=== PATIENT | female | born 1935 | race Caucasian/White ===

== ENCOUNTER 2023-05-08 07:54 | Outpatient (OUT) | payer MEDICARE, SELFPAY ==
--- NOTE | 2023-05-08 08:11 | CT_ITS ---
[address] [address] Patient Name: BENIGNO CHO MRN: [id number] date: 1935 Sex: F Assigned Patient Location: CT Current Patient Location: CT Accession/Order Number: [id number] Exam Date: 05/08/2023 08:05 Report Date: 05/08/2023 09:23 At the request of: CARI BRAUN Procedure: CT abdomen pelvis wo con EXAMINATION: CT abdomen pelvis wo con HISTORY: Gross Hematuria R31.0 COMPARISON: No relevant comparison available. TECHNIQUE: Axial, Coronal, and Sagittal images were created without IV contrast. Dose reduction techniques were achieved by using automated exposure control and/or adjustment of mA and/or kV according to patient size and/or use of iterative reconstruction technique. FINDINGS: LUNG BASES: Dependent opacities, atelectasis favored. Coronary artery stents and calcifications LIVER: Multiple punctate calcifications, sequela of prior granulomatous process BILIARY: Surgical clips from cholecystectomy PANCREAS: Diffuse atrophy SPLEEN: No enlargement or focal lesion. ADRENALS: No mass or enlargement. KIDNEYS: No mass, obstruction, or calcification. BOWEL/MESENTERY: Nonobstructive bowel gas pattern. Moderate colonic diverticulosis. Asymmetric soft tissue along the left rectum axial image 146 possibly stool AORTA/VASCULAR: No aortic aneurysm. Moderate diffuse atherosclerosis RETROPERITONEUM: No mass or adenopathy. LYMPH NODES: No adenopathy. URINARY BLADDER: No visible focal wall thickening, lesion, or calculus. PELVIC ORGANS: Remote hysterectomy ABDOMINAL WALL: No mass or hernia. BONES: No bony lesion or fracture. Right total hip arthroplasty. Moderate degenerative changes. OTHER: Negative. CT/CT abdomen pelvis wo con IMPRESSION: No obstructive uropathy Asymmetric soft tissue attenuation of the left rectum, consider direct visualization Electronically authenticated by: NORIS KELLY Date: 05/08/2023 09:23
== END 2023-05-08 07:55 | disposition home or self-care (01) ==
LOC: CT 07:54
PROVIDERS: PCP Family Medicine; Visit Provider Nurse Practitioner Family
DX: R31.0 Gross hematuria (principal)
CPT/HCPCS: 74176

== ENCOUNTER 2023-08-02 08:29 | Outpatient (RCR) | payer MEDICARE, SELFPAY | END 2023-08-28 13:09 | disposition home or self-care (01) | LOC: PT 08:29 | PROVIDERS: PCP Family Medicine; Visit Provider Family Medicine | DX: R26.81 Unsteadiness on feet (principal) | CPT/HCPCS: 97110; 97112; 97161 ==

== ENCOUNTER 2023-09-03 08:55 | Outpatient (OUT) | payer MEDICARE, SELFPAY ==
--- NOTE | 2023-09-03 09:00 | CA_ITS ---
Patient Name: BENIGNO CHO MR#: [id number] : 1935 Exam Date: 09/03/2023 Ordering Doctor: DR WAYNE ZUNIGA M.D. ECHOCARDIOGRAM REPORT PROCEDURE: CA ECHO DOPPLER COMPLETE INDICATIONS: Coronary artery disease, RI with PTCA, hypertension, diabetes COMPARISON: None. DESCRIPTION: COMPLETE ECHOCARDIOGRAM Real-time transthoracic echocardiography with 2D, M-mode, spectral and color flow Doppler performed. QUALITY: Technical quality was good. 59 , 143#, BSA 1.60 m2 LEFT VENTRICLE: Normal chamber size. Mild concentric left ventricular hypertrophy. LV EF: Global left ventricular systolic function is moderately reduced; visually estimated ejection fraction is 30 to 35%. Calculated left ventricular ejection fraction is 32%. Diffuse hypokinesis. DIASTOLIC: Grade 2, moderate diastolic dysfunction. ATRIAL SEPTUM: Inadequately seen. LEFT ATRIUM: Normal chamber size. RIGHT ATRIUM: Normal chamber size. RIGHT VENTRICLE: Normal chamber size. Normal right ventricular systolic function. TRICUSPID VALVE: Normal mobility and thickness. Trivial regurgitation. Unable to assess right-sided pressures due to lack of measurable tricuspid regurgitation. MITRAL VALVE: Moderately thickened with decreased mobility. Mild mitral annular calcification. Mild mitral regurgitation. AORTIC VALVE: Normal trileaflet appearance. Mildly calcified aortic valve. Mildly diminished mobility. Doppler velocity suggests no significant aortic valve stenosis. DVI 0.4. No aortic regurgitation. AORTIC ROOT: Normal diameter and appearance. PULMONIC VALVE: Normal thickness and mobility. No stenosis. Trivial regurgitation. PERICARDIUM: No evidence of pericardial effusion. IVC: Collapses with inspirations. IVC is normal in size. CONCLUSION: 1. Global left ventricular systolic function is moderately reduced; visually estimated ejection fraction is 30 to 35% 2. Normal right ventricular size and systolic function 3. Mildly increased left ventricular wall thickness 4. Grade 2, moderate diastolic dysfunction 5. Mild mitral regurgitation Adult Echocardiography Procedure Report Left Ventricle LVEDD (3.7 - 5.6 cm): 4.35 cm LVESD (2.2 - 4.0 cm): 3.94 cm LVIVS thickness (0.6 - 1.2 cm): 1.22 cm LVPW thickness (0.5 - 1.0 cm): 1.12 cm e': 0.08 m/s E - e': 9.29 LVOT Max Gradient: 1.21 mm[Hg] LVOT Area (cm2): 0.55 m/s Peak Velocity (LVOT): 0.55 m/s Mean Velocity (LVOT): 0.39 m/s LVOT Diameter 2.06 cm Left Atrium LA Volume Index (2D A2C): 36.13 ml/m2 Left Atrium Systolic Dimension: 3.48 cm Mitral Valve MV E to A Ratio: 1.36 Mitral Valve A-Wave Peak Velocity: 0.55 m/s Mitral Valve E-Wave Peak Velocity: 0.75 m/s Right Ventricle Aorta AO Root Diam: 3.02 cm Ascending Ao Diam: 2.98 cm Aortic Valve AoV Area (Peak Gallo): 1.44 cm2, 1.60 cm2 AoV Area (VTI): 1.40 cm2, 1.56 cm2 Peak Velocity(Antegrade Flow): 1.15 m/s, 1.17 m/s, 1.28 m/s Peak Gradient(Antegrade Flow): 5.25 mm[Hg], 5.51 mm[Hg], 6.52 mm[Hg] Mean Velocity(Antegrade Flow): 0.79 m/s, 0.86 m/s, 0.89 m/s Mean Gradient(Antegrade Flow): 2.90 mm[Hg], 3.38 mm[Hg], 3.60 mm[Hg] Velocity Time Integral: 27.30 cm, 28.47 cm, 30.33 cm Tricuspid Valve Pulmonic Valve Peak Gradient: 3.39 mm[Hg], 2.50 mm[Hg] Right Atrium Right Atrium Systolic Pressure: 21.17 ml, 21.17 ml Dictated by: Bettina Marley M.D. on 09/03/2023 at 14:21 Approved by: Bettina Marley M.D. on 09/03/2023 at 14:32
--- OUTSIDE RECORDS SUMMARY | 2023-09-03 09:09 | XMS_ITS | CCD ---
Author Name Unknown Address [address] [place] [address] Organization [facility] Care Team Providers Care Planning Director Name Role Phone DICK, DR BLACK Admitting Unavailable STEPANIC, DR BLACK Attending Unavailable STEPANIC, DR BLACK Consulting Unavailable OCTAVIA, DR HOWARD Primary Care Unavailable OCTAVIA, DR HOWARD Primary Care Unavailable OCTAVIA, DR HOWARD Admitting Unavailable OCTAVIA, DR HOWARD Attending Unavailable OCTAVIA, DR HOWARD Consulting Unavailable ZIEBER, DR HERMAN Lira Consulting Unavailable OCTAVIA, DR HOWARD Primary Care Unavailable OCTAVIA, DR HOWARD Admitting Unavailable OCTAVIA, DR HOWARD Attending Unavailable OCTAVIA, DR HOWARD Consulting Unavailable ZIEBER, DR HERMAN Lira Consulting Unavailable WAYNE, KARIME Admitting Unavailable WAYNE, KARIME Attending Unavailable WAYNE, KARIME Consulting Unavailable OCTAVIA, DR HOWARD Primary Care Unavailable OCTAVIA, ANITA Hutchins Attending Unavailable DONY MCDONALD Attending UnavailWAYNE Dueñas Attending Unavailable Allergies Allergy Classification Reported Allergen(s) Allergy Type Date of Onset Reaction(s) Facility (1 source) ALPRAZolam Drug Allergy 5 [facility] Repository (1 source) Cephalexin Drug Allergy 5 [facility] Repository (1 source) oxyCODONE Drug Allergy 1 [facility] Repository (1 source) Sulfamethoxazole / Trimethoprim Drug Allergy 5 [facility] Repository (1 source) Sulfonamides (Antibiotic) Drug allergy (disorder) 5 [facility] Repository (1 source) Cephalexin; Translations: [CEPHALEXIN] Drug Allergy 1 [facility] Repository (1 source) Sulfamethoxazole; Translations: [SULFAMETHOXAZOLE] Drug Allergy 1 [facility] Repository (1 source) Sulfamethoxazole / Trimethoprim; Translations: [SULFAMETHOXAZOLE-TR IMETHOPRIM] Drug Allergy 2 [facility] Repository (1 source) Trimethoprim; Translations: [TRIMETHOPRIM] Drug Allergy 1 [facility] Repository Problems Active Problems Problem Classification Problem Date Documented Date Episodic/Chronic Coronary atherosclerosis and other heart disease (4 sources) Atherosclerotic heart disease of [place] coronary artery without angina pectoris; Translations: [Old myocardial infarction] Onset: 07-26-2023 Chronic Coronary atherosclerosis and other heart disease (2 sources) Presence of coronary angioplasty implant and graft; Translations: [Presence of coronary angioplasty implant and graft] Onset: 07-26-2023 Episodic Essential hypertension (2 sources) Essential (primary) hypertension; Translations: [Essential (primary) hypertension] Onset: 06-08-2022 Chronic Menopausal disorders (4 sources) Other primary ovarian failure; Translations: [OTHER PRIMARY OVARIAN FAILURE] Onset: 10-31-2022 Chronic Other bone disease and musculoskeletal deformities (1 source) Other specified disorders of bone density and structure, left thigh; Translations: [OTH D/O BONE DEN STRUCT LT THIGH] Onset: 11-04-2022 Episodic Past or Other Problems Problem Classification Problem Date Documented Da te Episodic/Chronic Cancer of breast (1 source) Personal history of malignant neoplasm of breast; Translations: [PERS HX MALIGNANT NEOPLASM BREAST] Onset: 06-10-2022 Episodic Other screening for suspected conditions (not mental disorders or infectious disease) (4 sources) Encounter for screening mammogram for malignant neoplasm of breast; Translations: [ENC SCR MAMMO MALIG NEOPLASM BREAST] Onset: 06-06-2022 Episodic Results Test Name Value Interpretation Reference Range Facility Office Visiton 07-26-2023 Follow-up visit [id number] Dennis Cho 1935 F Date Provider Department Center 07/26/2023 WAYNE GANT CARD [facility] No family history on file Level of Service:64868 [place] OFFICE/OUTPATIENT ESTABLISHED LOW MDM 20 MIN Normal [facility] XR DEXA BONE DENSITYon 10-31 XR DEXA BONE DENSITY EXAMINATION: XR DEXA BONE DENSITY, 10/31/2022 7:56 AM EDT HISTORY: Primary ovarian failure COMPARISON: None. TECHNIQUE: Dual-energy X-ray absorptiometry (DEXA) bone density study performed for the axial skeleton. FINDINGS: SPINE ANALYSIS: Average bone mineral density is 1.5-3 g/cm2. T-score (standard deviation relative to young adult mean): 2.7 . +3.7% change since prior study. HIP ANALYSIS: Lowest bone mineral density is within the left femoral neck, 0.771 g/cm2. T-score (standard deviation relative to young adult mean): -1.9 . -7.0% change since prior study. IMPRESSION: World Stuart Organization Classification: Osteopenia - Moderate Fracture Risk Electronically authenticated by: HERMAN ANTHONY Date: 2022-10-31 09:16 Normal [facility] MAMM SCREEN 3D CATHLEEN CADon 06-06-2022 MG MAMM SCREEN 3D CATHLEEN CAD Patient: BENIGNO CHO Exam Date: 06/06/2022 : 1935 Gender:F Ordering : DR ANITA DUDLEY M.D. Admission #: [id number] Family : Order #: [id number] CLICK HERE TO VIEW EXAM RADIOLOGY REPORT PROCEDURE: MAMMOGRAM SCREENING 3D BILATERAL CAD COMPARISON: MG MAMM SCREEN 3D CATHLEEN CAD, 02/07/2021. MG MAMM SCREEN CATHLEEN W CAD, 02/04/2020. INDICATIONS: Screening mammography Calculator Name NCI Breast Cancer Risk Assessment Tool 5 Year Breast Cancer Risk Not Applicable. Lifetime Breast Cancer Risk Not Applicable. Personal Breast Cancer Yes, 1998 Lumpectomy Personal Ovarian Cancer No Treatments Lumpectomy, Radiation, Chemotherapy, Tamoxifen Family Cancers None LOCATION: [facility] BREAST COMPOSITION: Heterogeneously dense,which may obscure small masses. FINDINGS: DIAGNOSTIC CATEGORY 2--BENIGN FINDING: RIGHT BREAST: No significant suspicious finding. Scattered benign-appearing calcifications are present. No significant change has occurred. LEFT BREAST: No significant suspicious finding. Scattered benign-appearing calcifications are present. Scattered benign-appearing nodules are present. No significant change has occurred. RECOMMENDATIONS: ROUTINE MAMMOGRAM AND CLINICAL EVALUATION IN 12 MONTHS. PLEASE NOTE: A NORMAL MAMMOGRAM DOES NOT EXCLUDE THE POSSIBILITY OF BREAST CANCER. A CLINICALLY SUSPICIOUS PALPABLE LUMP SHOULD BE BIOPSIED. Dictated by: Herman Anthony M.D. on 06/07/2022 at 14:54 Approved by: Herman Anthony M.D. on 06/07/2022 at 15:08 Normal [facility] PROF CHEM 8 (BAS METB)on Anion gap [Moles/Vol] 12.9 mmol/L Normal [facility] Comment on above: Performed By: #### B MP #### [facility] [address] [address] [address] Justin Sidhu Calcium [Mass/Vol] 8.8 mg/dL Normal 8.5-10.1 [facility] Comment on above: Performed By: #### B MP #### [facility] [address] [address] [address] Justin Sidhu Chloride [Moles/Vol] 99 mmol/L Normal 98-107 [facility] Comment on above: Performed By: #### B MP #### [facility] [address] [address] [address] Justin Sidhu CO2 [Moles/Vol] 25.9 mmol/L Normal 21.0-32.0 [facility] Comment on above: Performed By: #### B MP #### [facility] [address] [address] [address] Justin Sidhu Creatinine [Mass/Vol] 0.75 mg/dL Normal 0.55-1.02 [facility] Comment on above: Performed By: #### B MP #### [facility] [address] [place] [address] Dr. Justin Sidhu EGFR-AF PERUVIAN >60 Normal >=60 [facility] Comment on above: Performed By: #### B MP #### [facility] [address] [address] [address] Justin Sidhu EGFR-NON AF PERUVIAN >60 Normal >=60 [facility] Comment on above: Performed By: #### B MP #### [facility] [address] [address] [address] Justin Sidhu Glucose [Mass/Vol] 123 mg/dL Critically high 74-106 [facility] Comment on above: Performed By: #### B MP #### [facility] [address] [address] [address] Justin Sidhu Potassium [Moles/Vol] 4.8 mmol/L Normal 3.5-5.1 [facility] Comment on above: Result Comment: SPEC IMEN SLIGHTLY HEMOLIZED Performed By: #### B MP #### [facility] [address] [place] [address] Dr. Justin Sidhu Sodium [Moles/Vol] 133 mmol/L Critically low 136-145 Th e [facility] Comment on above: Performed By: #### B MP #### [facility] [address] [address] [address] Justin Sidhu Urea nitrogen [Mass/Vol] 19.0 mg/dL Critically high 7.0-18.0 [facility] Comment on above: Performed By: #### B MP #### [facility] [address] [place] [address] Dr. Justin Sidhu Urea nitrogen/Creatinin e [Mass ratio] 25.3 mg/mg Normal [facility] Comment on above: Performed By: #### B MP #### [facility] [address] [place] [address] Dr. Justin Sidhu Complete Blood Count with Au to Diffon 09-23-2021 Basophils (Bld) [#/Vol] 0.04 10*3/uL Normal 0.00-0.20 [facility] Specialist Comment on above: Performed By: #### C MP, CBCAD, LIPD #### [facility] [address] [place], [place] [id number] Basophils/100 WBC (Bld) 0.2 % Normal [facility] Interventional Radiology Technologist Comment on above: Performed By: #### C MP, CBCAD, LIPD #### [facility] [address] [place] [id number] Eosinophils (Bld) [#/Vol] 0.10 10*3/uL Normal 0.02-0.50 [facility] Interventional Radiology Technologist Comment on above: Performed By: #### C MP, CBCAD, LIPD #### [facility] [address] [place] [id number] Eosinophils/100 WBC (Bld) 0.6 % Normal [facility] Specialist Comment on above: Performed By: #### C MP, CBCAD, LIPD #### [facility] [address] [place], [place] [id number] Erythrocyte distribution width (RBC) [Ratio] 13.4 % Normal 11.0-15.0 [facility] Interventional Radiology Technologist Comment on above: Performed By: #### C MP, CBCAD, LIPD #### [facility] [address] [place], [place] [id number] Hematocrit (Bld) [Volume fraction] 37.9 % Normal 35.0-47.0 [facility] Interventional Radiology Technologist Comment on above: Performed By: #### C MP, CBCAD, LIPD #### [facility] [address] [place], [place] [id number] Hemoglobin (Bld) [Mass/Vol] 12.8 g/dL Normal 11.6-15.5 [facility] Interventional Radiology Technologist Comment on above: Performed By: #### C MP, CBCAD, LIPD #### [facility] [address] [place], [place] [id number] Lymphocytes (Bld) [#/Vol] 1.6 10*3/uL Normal 0.9-3.9 [facility] Interventional Radiology Technologist Comment on above: Performed By: #### C MP, CBCAD, LIPD #### [facility] [address] [place], [place] [id number] Lymphocytes/100 WBC (Bld) 9.6 % Normal [facility] Specialist Comment on above: Performed By: #### C MP, CBCAD, LIPD #### [facility] [address] [place], [place] [id number] MCH (RBC) [Entitic mass] 33.2 pg High 27.0-33.0 [facility] Interventional Radiology Technologist Comment on above: Performed By: #### C MP, CBCAD, LIPD #### [facility] [address] [place], [place] [id number] MCHC (RBC) [Mass/Vol] 33.8 g/dL Normal 32.0-36.0 [facility] Interventional Radiology Technologist Comment on above: Performed By: #### C MP, CBCAD, LIPD #### [facility] [address] [place], [place] [id number] MCV (RBC) [Entitic vol] 98 fL Normal 80-100 [place] Interventional Radiology Technologist Comment on above: Performed By: #### C MP, CBCAD, LIPD #### [facility] [address] [place], [place] [id number] Monocytes (Bld) [#/Vol] 1.0 10*3/uL High 0.2-0.9 [facility] Specialist Comment on above: Performed By: #### C MP, CBCAD, LIPD #### [facility] [address] [place], [place] [id number] Monocytes/100 WBC (Bld) 5.9 % Normal [facility] Specialist Comment on above: Performed By: #### C MP, CBCAD, LIPD #### [facility] [address] [place], [place] [id number] Neutrophils (Bld) [#/Vol] 13.5 10*3/uL High 1.5-7.8 [facility] Specialist Comment on above: Performed By: #### C MP, CBCAD, LIPD #### [facility] [address] [place], [place] [id number] Neutrophils/100 WBC (Bld) 83.0 % Normal [facility] Specialist Comment on above: Performed By: #### C MP, CBCAD, LIPD #### [facility] [address] [place], [place] [id number] Platelet mean volume (Bld) [Entitic vol] 10.60 fL Normal 7.50-12.50 [facility] Specialist Comment on above: Performed By: #### C MP, CBCAD, LIPD #### [facility] [address] [place], [place] [id number] Platelets (Bld) [#/Vol] 271 10*3/uL Normal 140-400 [facility] Interventional Radiology Technologist Comment on above: Performed By: #### C MP, CBCAD, LIPD #### [facility] [address] [place], [place] [id number] RBC (Bld) [#/Vol] 3.85 10*6/uL Low 3.90-5.20 [facility] Specialist Comment on above: Performed By: #### C MP, CBCAD, LIPD #### [facility] [address] [place], [place] [id number] RDW-SD 48.1 fL Normal 37.0-50.0 [facility] Specialist Comment on above: Performed By: #### C MP, CBCAD, LIPD #### [facility] [address] [place], [place] [id number] WBC (Bld) [#/Vol] 16.3 10*3/uL High 3.8-11.0 [facility] Comment on above: Performed By: #### C MP, CBCAD, LIPD #### [facility] [address] [place], [place] [id number] Comprehensive Metabolic Pane lizty 09-23-2021 Albumin [Mass/Vol] 4.0 g/dL Normal 3.6-5.1 [facility] Comment on above: Performed By: #### C MP, CBCAD, LIPD #### [facility] [address] [place], [place] [id number] Albumin/Globulin [Mass ratio] 2.4 {ratio} Normal 1.0-2.5 [facility] Specialist Comment on above: Performed By: #### C MP, CBCAD, LIPD #### [facility] [address] [place], [place] [id number] ALP [Catalytic activity/Vol] 67 U/L Normal 35-119 [facility] Specialist Comment on above: Performed By: #### C MP, CBCAD, LIPD #### [facility] [address] [place], [place] [id number] ALT [Catalytic activity/Vol] 12 U/L Normal 6-33 [facility] Specialist Comment on above: Result Comment: 06/08 Female reference range changed. Performed By: #### C MP, CBCAD, LIPD #### [facility] [address] [place], [place] [id number] Anion gap [Moles/Vol] 18 mmol/L Normal 12-20 [facility] Specialist Comment on above: Result Comment: Effe ctive 07/14/2019 reference range changed. Performed By: #### C MP, CBCAD, LIPD #### [facility] [address] [place], [place] [id number] AST [Catalytic activity/Vol] 17 U/L Normal 9-34 [place] Interventional Radiology Technologist Comment on above: Performed By: #### C MP, CBCAD, LIPD #### [facility] [address] [place], [place] [id number] Bilirubin [Mass/Vol] 0.52 mg/dL Normal 0.30-1.20 [facility] Comment on above: Performed By: #### C MP, CBCAD, LIPD #### [facility] [address] [place], [place] [id number] BUN/CREA 30 Ratio High 6-22 [facility] Comment on above: Performed By: #### C MP, CBCAD, LIPD #### [facility] [address] [place], [place] [id number] Calcium [Mass/Vol] 8.9 mg/dL Normal 8.6-10.2 [facility] Comment on above: Performed By: #### C MP, CBCAD, LIPD #### [facility] [address] [place], [place] [id number] Chloride [Moles/Vol] 96 mmol/L Low 98-107 [facility] Comment on above: Performed By: #### C MP, CBCAD, LIPD #### [facility] [address] [place], [place] [id number] CO2 [Moles/Vol] 29 mmol/L Normal 20-31 [facility] Comment on above: Performed By: #### C MP, CBCAD, LIPD #### [facility] [address] [place] [id number] Creatinine [Mass/Vol] 0.8 mg/dL Normal 0.6-1.4 [facility] Comment on above: Performed By: #### C MP, CBCAD, LIPD #### [facility] [address] [place], [place] [id number] eGFRAA 87 mL/min/1.73m2 Normal >60 [facility] Specialist Comment on above: Performed By: #### C MP, CBCAD, LIPD #### [facility] [address] [place], [place] [id number] eGFRNAA 72 mL/min/1.73m2 Normal >60 [facility] Specialist Comment on above: Performed By: #### C MP, CBCAD, LIPD #### [facility] [address] [place], [place] [id number] Globulin (S) [Mass/Vol] 1.7 g/dL Low 1.9-3.7 [facility] Interventional Radiology Technologist Comment on above: Performed By: #### C RAHEL NATH, LIPD #### [facility] [address] [place], [place] [id number] Glucose [Mass/Vol] 186 mg/dL High 65-99 [facility] Interventional Radiology Technologist Comment on above: Result Comment: For FASTING Glucose --- ADA reference ranges: Normal 65-99 mg/dl Prediabetes 100-125 Diabetes >/= 126 Performed By: #### C RAHEL NATH, LIPD #### [facility] [address] [place], [place] [id number] Potassium [Moles/Vol] 3.8 mmol/L Normal 3.5-5.5 [facility] Interventional Radiology Technologist Comment on above: Performed By: #### C RAHEL NATH, LIPD #### [facility] [address] [place], [place] [id number] Protein [Mass/Vol] 5.7 g/dL Low 6.1-8.1 [facility] Interventional Radiology Technologist Comment on above: Performed By: #### C RAHEL NATH, LIPD #### [facility] [address] [place], [place] [id number] Sodium [Moles/Vol] 138 mmol/L Normal 135-146 [facility] Interventional Radiology Technologist Comment on above: Performed By: #### C RAHEL NATH, LIPD #### [facility] [address] [place], [place] [id number] Urea nitrogen [Mass/Vol] 23 mg/dL Normal 7-25 [facility] Interventional Radiology Technologist Comment on above: Performed By: #### C RAHEL NATH, LIPD #### [facility] [address] [place], [place] [id number] Lipid Panelon 09-23-2021 Cholesterol [Mass/Vol] 155 mg/dL Normal 125-200 [facility] Interventional Radiology Technologist Comment on above: Result Comment: Low risk < 200mg/dL Borderline risk 201-239 mg/dl High risk > or equal to 240 Performed By: #### C MP, CBCAD, LIPD #### [facility] [address] [place], [place] [id number] Cholesterol in HDL [Mass/Vol] 44 mg/dL Normal >40 [facility] Interventional Radiology Technologist Comment on above: Result Comment: High Cardiovascular Risk HDL <40 mg/dL Low Cardiovascular Risk HDL > or equal to 60 mg/dl Performed By: #### C PORTILLO, CBCAD, LIPD #### [facility] [address] [place], [place] [id number] Cholesterol in LDL [Mass/Vol] 71 mg/dL Normal [facility] Specialist Comment on above: Result Comment: LDL ATP III CLASSIFICATION LDL less than 100 mg/dl Optimal LDL 100-129 mg/dl Near or above optimal LDL 130-159 Borderline high LDL 160-189 High LDL greater than 189 mg/dl Very High Performed By: #### C PORTILLO, CBCAD, LIPD #### [facility] [address] [place], [place] [id number] Cholesterol in VLDL [Mass/Vol] 40 mg/dL Normal [facility] Interventional Radiology Technologist Comment on above: Performed By: #### C PORTILLO, CBCAD, LIPD #### [facility] [address] [place], [place] [id number] Cholesterol.total/ Cholesterol in HDL [Mass ratio] 4 {ratio} Normal [facility] Specialist Comment on above: Performed By: #### C PORTILLO, CBCAD, LIPD #### [facility] [address] [place], [place] [id number] Triglyceride [Mass/Vol] 202 mg/dL High 30-150 [facility] Interventional Radiology Technologist Comment on above: Result Comment: TRIG ATPIII CLASSIFICATIONS TRIG less than 150 mg/dl Normal TRIG 150-199 mg/dl Borderline High TRIG 200-500 mg/dl High TRIG greather than 500 mg/dl Very High Performed By: #### C PORTILLO, CBCAD, LIPD #### [facility] [address] [place], [place] [id number] Uric Acidon 09-23-2021 URIC 5.5 mg/dL Normal 2.5-7.0 [facility] Specialist Comment on above: Result Comment: Refe rence range change 05/25/2017. Prior reference range F 2.4-5.7mg/dL. M 3.4-7.0 mg/dL. Performed By: #### U NICOLETTE #### [facility] [address] [facility] [place] [id number] [facility] -------- BENIGNO CHO ([id number]) 1935 F Date Time Provider Department 02/16/21 Alejo MAHAJAN During your visit today, we recorded the following information about you: Nevin Kaye RN 02/16/2021 12:44 PM Signed [facility] Screening mammo and result only call in one year PSS- please schedule as above. GLO- please sign new Seth order. The prior order will be denied because of the breast CA diagnosis. They will not do screening seth if we attach that. Thanks BETY Thomas 02/17/2021 9:09 AM Signed Patient has been scheduled as instructed. Carlos Yates Allergies As of Date: 02/16/2021 Noted Allergy Reaction BACTRIM (SULFAMETHOXAZOLE) 02/13/2011 4 - Hives KEFLEX (CEPHALEXIN) 02/13/2011 4 - Hives Date Reviewed: 03/21/2017 [facility] BETY Turner - Fully Assessed Reason for Visit: Future Appointment [256] Primary Visit Diagnosis:Encounter for screening mammogram for malignant neoplasm of breast [Z12.31] Order(s):SETH SCREENING [[id number]] Order #: [id number] FUTURE Prescriptions as of 02/17/2021 - oxybutynin (DITROPAN) 5 mg tablet - JANUVIA 100 mg tablet - ALPRAZolam SR (XANAX SR) 0.5 mg 24 hr tablet Take 0.25 mg by mouth daily at bedtime. - GLUCOSAMINE/CHONDR CASEY A SOD (OSTEO BI-FLEX ORAL) Take by mouth. - atenolol 25 mg ORAL tablet Take 1 tablet by mouth once daily. - hydrochlorothiazide 25 mg ORAL tablet Take 0.5 tablets by mouth once daily. - benazepril 20 mg ORAL tablet Take 1 tablet by mouth once daily. - metFORMIN 1,000 mg ORAL tablet Take 1 tablet by mouth twice daily. - nitroglycerin sublingual 0.4 mg SUBLINGUAL SL tablet Dissolve 1 tablet under the tongue as needed. Dissolve on tongue for chest pain. If no pain relief call 911. - Canmer-3 Fatty Acids-Vitamin E (FISH OIL) 1,000 mg ORAL Cap Take 1 capsule by mouth twice daily. - aspirin, enteric coated (ECOTRIN LOW STRENGTH) 81 mg ORAL EC tablet Take 1 tablet by mouth once daily. - Coenzyme Q10 (CO Q-10) 100 mg ORAL Cap Take 1 capsule by mouth twice daily. Problem List As Of Date 02/16/2021 Noted Resolved ASA CLASS III [1003] 05/01/2011 Female stress incontinence [N39.3] 05/16/2011 Uterovaginal prolapse [N81.4] 05/16/2011 History of breast cancer [Z85.3] 03/21/2017 Encounter Status:Closed by NEVIN KAYE on 02/17/21 [facility] Encounters Encounter Date Encounter Type Care Provider Facility Start: 07-26-2023 End: 07-26-2023 ambulatory [facility] Start: 07-16-2023 End: 07-16-2023 ambulatory ANITA DUDLEY Not Available Start: 06-18-2023 End: 06-18-2023 ambulatory DONY MCDONALD Not Available Start: 10-31-2022 End: 11-01-[address] ANITA DUDLEY Facility:[facility] Start: 06-06-2022 End: 06-07-[address] ANITA DUDLEY Facility:[facility] Start: 04-21-2022 Encounter for preprocedural cardiovascular examination KARIME BLACK [facility] Start: 04-20-2022 End: 04-21-2022 ambulatory KARIME BLACK Facility:[facility] Start: 04-20-2022 End: 04-21-2022 Encounter for preprocedural cardiovascular examination KARIME BLACK Facility:[facility] Start: 04-20-2022 Encounter for other preprocedural examination DR WAYNE JENNINGS [facility] Start: 04-18-2022 End: 04-19-[address] WAYNE JENNINGS Facility:[facility] Start: 04-18-2022 End: 04-19-2022 Encounter for other preprocedural examination DR WAYNE JENNINGS Facility:[facility] Payers Date Payer Category Payer Medicare [id number] 1960 Medicare [id number] 1935 Unknown [id number] 2.16.84 [id number] 1934 Unknown [id number] 2.16.84 [id number] 1934 Unknown [id number] 2.16.84 [id number] 1934 Unknown [id number] 2.16.84 [id number] 1934 Unknown [id number] 1934 Unknown [id number] Progress note 07-26-2023 Note Date & Type Note Facility 07-26-2023 Note [facility] Subjective Benigno Cho is a 87 y.o. year old female patient being seen for 1 year follow up CAD, PVD, and hypertension. Routine labs were done at PCP's office in September 2022. Denies chest pain, SOB, palpitations, and lightheadedness. Patient Active Problem List Diagnosis Chest discomfort Coronary arteriosclerosis Decreased estrogen level Diabetic renal disease (CMS/HCC) Female stress incontinence Gout, unspecified H/O Malignant melanoma Hypertension due to endocrine disorder Hypertensive disorder Hypertriglyceridemia Lipoprotein deficiency disorder Malignant neoplasm of female breast (CMS/HCC) Localized, primary osteoarthritis of hand Onychomycosis due to dermatophyte Osteoarthrosis Osteopenia of left hip PVD (peripheral vascular disease) (CMS/HCC) Abnormal CT of the abdomen Abnormality of rectum Acquired hallux valgus Acquired hammer toe of left foot Adjustment disorder with anxiety Allergic rhinitis Anxiety Arrest of bone development or growth 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 Carpal tunnel syndrome of left wrist Esophageal reflux Gouty arthritis 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 Social History Tobacco Use Smoking status: Never Smokeless tobacco: Never Substance Use Topics Alcohol use: Yes Comment: occasional HPI Benigno Cho is seen in follow up. She is an 87 yo lady with history of CAD as follows: She had acute inferior CA in 2004 treated by PCI to the RCA. She then had additional stenting of the RCA in July 2005. Subsequently had Cath 2005 with additional PCI ALO to RCA and LAD. She also had a cath in 2009 at [facility] and underwent additional stenting. This was complicated by retroperitoneal bleeding but she did well after that. She has history of hypertension and hyperlipidemia on treatment. She has diabetes. Previously Simvastatin was stopped due to good cholesterol levels, I had resumed it at a prior vist. She has been well with no chest pain at rest or on exertion. She has no dyspnea on exertion. She has no claudication. She has no dizziness. She has no complaints. Review of Systems Musculoskeletal: Positive for arthritis, back pain and joint pain. All other systems reviewed and are negative. Objective Visit Vitals BP 124/62 (BP Location: Right arm, Patient Position: Sitting) Pulse 59 Ht 1.499 m (4' 11 ) Wt 64.4 kg (142 lb) SpO2 99% BMI 28.68 kg/m??? Smoking Status Never BSA 1.64 m??? Physical Exam Constitutional: Appearance: She is well-developed. She is not ill-appearing. HENT: Head: Normocephalic and atraumatic. Nose: Nose normal. Eyes: General: No scleral icterus. Pupils: Pupils are equal, round, and reactive to light. Neck: Thyroid: No thyromegaly. Vascular: No JVD. Cardiovascular: Rate and Rhythm: Normal rate and regular rhythm. Pulses: Radial pulses are 2+ on the right side and 2+ on the left side. Heart sounds: Normal heart sounds. No murmur heard. No friction rub. No gallop. Pulmonary: Effort: Pulmonary effort is normal. No respiratory distress. Breath sounds: Normal breath sounds. No wheezing or rales. Chest: Chest wall: No tenderness. Abdominal: General: Bowel sounds are normal. There is no distension. Palpations: Abdomen is soft. Tenderness: There is no abdominal tenderness. Musculoskeletal: General: No swelling. Cervical back: Neck supple. Skin: General: Skin is warm and dry. Neurological: General: No focal deficit present. Mental Status: She is alert and oriented to person, place, and time. Psychiatric: Mood and Affect: Mood normal. Behavior: Behavior is cooperative. Judgment: Judgment normal. Allergies Allergies Allergen Reactions Cephalexin Hives and Unknown Sulfamethoxazole Hives and Unknown Sulfamethoxazole-Trimethoprim Trimethoprim Unknown Medications Current Outpatient Medications: aspirin 81 mg EC tablet, Take 81 mg by mouth in the morning and at bedtime., Disp: , Rfl: atenolol (Tenormin) 25 mg tablet, Take 25 mg by mouth in the morning., Disp: , Rfl: benazepril (Lotensin) 20 mg tablet, Take 20 mg by mouth in the morning., Disp: , Rfl: calcium citrate (Calcitrate) 200 mg (950 mg) tablet, Take 1,000 mg by mouth twice a day., Disp: , Rfl: hydroCHLOROthiazide (HYDRODiuril) 25 mg tablet, Take 25 mg by mouth in the morning., Disp: , Rfl: Januvia 100 mg tablet, Take 100 mg by mouth in the morning., Disp: , Rfl: magnesium oxide (Mag-Ox) 400 mg (241.3 mg magnesium) tablet, in the morning., Disp: , Rfl: nitroglycerin (Nitrostat) 0.4 (more content not included)... [facility] Progress note 02-16-2021 Note Date & Type Note Facility 02-16-2021 Note HNO ID: [id number] Author: Alejo Mahajan MD Service: ? Author Type: Physician Type: Progress Notes Filed: 02/16/2021 11:44 AM Note Text: AMBULATORY TELEPHONE VISIT Benigno Cho has consented to this telephone encounter. Persons Present: patient Chief Complaint/Reason: left-sided breast cancer and prior treatment including left breast radiation. HPI: Doing well denies problems. She did not want this to count as a visit due to concern of cost. Data Reviewed: Most recent imaging Bilateral screening mammography 02/07/2021: BI-RADS 2 benign findings. Heterogeneously dense. No suspicious areas. Assessment: Left-sided breast cancer and prior treatment including left breast radiation. Doing well. Mammogram unremarkable. Recommend continued yearly mammography as long as she is otherwise doing well. Total Time Spent: 4 minutes Alejo Mahajan MD [facility] Summary Purpose Family History No Family History Records FoundNo Family History Records FoundNo Family History Records FoundNo Family History Records FoundNo Family History Records Found Advance Directives No Advanced Directives Records FoundNo Advanced Directives Records FoundNo Advanced Directives Records FoundNo Advanced Directives Records FoundNo Advanced Directives Records Found Additional Source Comments INFORMATION SOURCE (unrecogn ized section and content) DATE CREATED AUTHOR 08/10/2021 [facility] DATE CREATED AUTHOR AUTHOR'S ORGANIZ ATION 09/24/2021 [facility] DATE CREATED AUTHOR AUTHOR'S ORGANIZ ATION 11/04/2022 [facility] pital DATE CREATED AUTHOR AUTHOR'S ORGANIZ ATION 07/16/2023 [facility] EPIC DATE CREATED AUTHOR AUTHOR'S ORGANIZ ATION 07/27/2023 [facility] FOR RECORDS PERTAINING TO PATIENTS WHO ARE OR HAVE BEEN ENROLLED IN A CHEMICAL DEPENDENCY/SUBSTANCEABUSE PROGRAM, SOME INFORMATION MAY BE OMITTED. This clinical summary was aggregated from multiple sources. Caution should be exercised in using it in the provision of clinical care. This summary normalizes information from multiple sources, and as a consequence, information in this document may materially change the coding, format and clinical context of patient data. In addition, data may be omitted in some cases. CLINICAL DECISIONS SHOULD BE BASED ON THE PRIMARY CLINICAL RECORDS. [facility] [employer] [facility]. provides no warranty or guarantee of the accuracy or completeness of information in this document.
== END 2023-09-03 08:56 | disposition home or self-care (01) ==
LOC: CARD 08:56
PROVIDERS: PCP Family Medicine; Visit Provider Internal Medicine Interventional Cardiology
DX: I25.10 Atherosclerotic heart disease of native coronary artery without angina pectoris (principal); Z95.5 Presence of coronary angioplasty implant and graft; I25.2 Old myocardial infarction
CPT/HCPCS: 93306; 93356

== ENCOUNTER 2023-10-03 12:10 | Emergency (ER) | payer MEDICARE, SELFPAY ==
[2023-10-03] VITALS (16 sets, daily range): BP systolic 127–143; BP diastolic 62–77; PULSE 59–71; RESP 12–27; TEMP 36.7; O2SAT 93–100; BMI 27.0
--- OUTSIDE RECORDS SUMMARY | 2023-10-03 12:25 | XMS_ITS | CCD ---
Author Organization [facility] Care Team Providers Care Occ Therapist Name Role Phone DICK, DR BLACK Admitting Unavailable STEPANIC, DR BLACK Attending Unavailable STEPANIC, DR BLACK Consulting Unavailable OCTAVIA, DR HOWARD Primary Care Unavailable OCTAVIA, DR HOWADR Primary Care Unavailable OCTAVIA, DR HOWARD Admitting [...] Care Unavailable OCTAVIA, ANITA Hutchins Attending Unavailable BOHACHDONY Attending Unavailabl e BOHDONY VALADEZ Attending Unavailabl e OCTAVIA, ANITA Hutchins Attending Unavailable MOWAYNE RUGGIERO Attending Unavailable WAYNE ZUNIGA Attending Unavailable Allergies Allergy Classification Reported Allergen(s) Allergy Type Date of Onset Reaction(s) Facility (1 source) ALPRAZolam Drug Allergy [address] [facility] Repository (1 source) Cephalexin Drug Allergy [address] [facility] Repository (1 source) oxyCODONE Drug Allergy [address] [facility] Repository (1 source) Sulfamethoxazole / Trimethoprim Drug Allergy [address] [facility] Repository (1 source) Sulfonamides (Antibiotic) Drug allergy (disorder) [address] [facility] Repository (1 source) Cephalexin; Translations: [CEPHALEXIN] Drug Allergy 1 [facility] Repository (1 source) Sulfamethoxazole; Translations: [SULFAMETHOXAZOLE] Drug Allergy 1 [facility] Repository (1 source) Sulfamethoxazole / Trimethoprim; Translations: [SULFAMETHOXAZOLE-TR IMETHOPRIM] Drug Allergy 2 [facility] Repository (1 source) Trimethoprim; Translations: [TRIMETHOPRIM] Drug Allergy 1 [facility] Repository Problems Active Problems Problem Classification Problem Date Documented Date Episodic/Chronic Congestive heart failure; nonhypertensive (2 sources) Acute systolic (congestive) heart failure; Translations: [Acute systolic (congestive) heart failure] Onset: 09-24-2023 Chronic Coronary atherosclerosis and other heart disease (4 sources) 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 She needs to be seen in the office to adjust medications due to heart failure and to discuss cardiac catheterization. Spoke with patient and scheduled her to see Dr. Zuniga on 09/23. Normal [facility] Office Visiton 07-26-2023 Follow-up visit [id number] Sapphire Chosamantha Brannon 1935 F Date Provider Department Center 07/26/2023 367-WAYNE ZUNIGA [facility] No family history on file Level of Service:34043 MT OFFICE/OUTPATIENT ESTABLISHED LOW MDM 20 MIN Normal [facility] XR DEXA BONE DENSITYon 10-31 XR DEXA [...] authenticated by: HERMAN ANTHONY Date: 2022-10-31 09:[address] [facility] MG MAMM SCREEN 3D CATHLEEN CADon 06-06-2022 MG MAMM SCREEN 3D CATHLEEN CAD Patient: BENIGNO CHOColby Exam Date: 06/06/2022 : 1935 Gender:F Ordering : DR ANITA DUDLEY M.D. Admission #: [id number] Family : Order #: [id number] CLICK HERE TO VIEW EXAM RADIOLOGY REPORT [...] Radiation, Chemotherapy, Tamoxifen Family Cancers None LOCATION: [facility] BREAST COMPOSITION: Heterogeneously dense,which may obscure small [...] Anthony M.D. on 06/07/2022 at 15:08 Normal [facility] PROF CHEM 8 (BAS METB)on Anion gap [Moles/Vol] 12.9 mmol/L Normal [facility] Comment on above: Performed By: #### B MP #### [facility] [address] [address] [address] Justin Sidhu Calcium [Mass/Vol] 8.8 mg/dL Normal 8.5-10.1 [facility] Comment on above: Performed By: #### B MP #### [facility] [address] [address] [address] Justin Sidhu Chloride [Moles/Vol] 99 mmol/L Normal 98-107 [facility] Comment on above: Performed By: #### B MP #### [facility] [address] [address] [address] Justin Sidhu CO2 [Moles/Vol] 25.9 mmol/L Normal 21.0-32.0 [facility] Comment on above: Performed By: #### B MP #### [facility] [address] [address] [address] Justin Sidhu Creatinine [Mass/Vol] 0.75 mg/dL Normal 0.55-1.02 [facility] Comment on above: Performed By: #### B MP #### [facility] [address] [address] [address] Justin Sidhu EGFR-AF GUAMANIAN >60 Normal >=60 [facility] Comment on above: Performed By: #### B MP #### [facility] [address] [address] [address] Justin Sidhu EGFR-NON AF GUAMANIAN >60 Normal >=60 [facility] Comment on above: Performed By: #### B MP #### [facility] [address] [address] [address] Justin Sidhu Glucose [Mass/Vol] 123 mg/dL Critically high 74-106 T [facility] Comment on above: Performed By: #### B MP #### [facility] [address] [place] [address] Dr. Justin Sidhu Potassium [Moles/Vol] 4.8 mmol/L Normal 3.5-5.1 [facility] Comment on above: Result Comment: SPEC IMEN SLIGHTLY HEMOLIZED Performed By: #### B MP #### [facility] [address] [place] [address] Dr. Justin Sidhu Sodium [Moles/Vol] 133 mmol/L Critically low 136-145 Th [facility] Comment on above: Performed By: #### B MP #### [facility] [address] [address] [address] Justin Sidhu Urea nitrogen [Mass/Vol] 19.0 mg/dL Critically high 7.0-18.0 [facility] Comment on above: Performed By: #### B MP #### [facility] [address] [address] [address] Justin Sidhu Urea nitrogen/Creatinin e [Mass ratio] 25.3 mg/mg Normal [facility] Comment on above: Performed By: #### B MP #### [facility] [address] [address] [address] Justin Sidhu Complete Blood Count with Au to Diffon 09-23-2021 Basophils (Bld) [#/Vol] 0.04 10*3/uL Normal 0.00-0.20 [facility] Comment on above: Performed By: #### C MP, CBCAD, LIPD #### [facility] [address] [place], [place] [id number] Basophils/100 WBC (Bld) 0.2 % Normal [facility] Comment on above: Performed By: #### C MP, CBCAD, LIPD #### [facility] [address] [place], [place] [id number] Eosinophils (Bld) [#/Vol] 0.10 10*3/uL Normal 0.02-0.50 [facility] Comment on above: Performed By: #### C MP, CBCAD, LIPD #### [facility] [address] [place], [place] [id number] Eosinophils/100 WBC (Bld) 0.6 % Normal [facility] Comment on above: Performed By: #### C MP, CBCAD, LIPD #### [facility] [address] [place], [place] [id number] Erythrocyte distribution width (RBC) [Ratio] 13.4 % Normal 11.0-15.0 [facility] Comment on above: Performed By: #### C MP, CBCAD, LIPD #### [facility] [address] [place], [place] [id number] Hematocrit (Bld) [Volume fraction] 37.9 % Normal 35.0-47.0 [facility] Comment on above: Performed By: #### C MP, CBCAD, LIPD #### [facility] [address] [place], [place] [id number] Hemoglobin (Bld) [Mass/Vol] 12.8 g/dL Normal 11.6-15.5 [facility] Comment on above: Performed By: #### C MP, CBCAD, LIPD #### [facility] [address] [place], [place] [id number] Lymphocytes (Bld) [#/Vol] 1.6 10*3/uL Normal 0.9-3.9 [facility] Comment on above: Performed By: #### C MP, CBCAD, LIPD #### [facility] [address] [place], [place] [id number] Lymphocytes/100 WBC (Bld) 9.6 % Normal [facility] Comment on above: Performed By: #### C MP, CBCAD, LIPD #### [facility] [address] [place], [place] [id number] MCH (RBC) [Entitic mass] 33.2 pg High 27.0-33.0 [facility] Comment on above: Performed By: #### C MP, CBCAD, LIPD #### [facility] [address] [place], [place] [id number] MCHC (RBC) [Mass/Vol] 33.8 g/dL Normal 32.0-36.0 [facility] Comment on above: Performed By: #### C MP, CBCAD, LIPD #### [facility] [address] [place], [place] [id number] MCV (RBC) [Entitic vol] 98 fL Normal 80-100 [facility] Comment on above: Performed By: #### C MP, CBCAD, LIPD #### [facility] [address] [place], [place] [id number] Monocytes (Bld) [#/Vol] 1.0 10*3/uL High 0.2-0.9 [facility] Comment on above: Performed By: #### C MP, CBCAD, LIPD #### [facility] [address] [place], [place] [id number] Monocytes/100 WBC (Bld) 5.9 % Normal [facility] Comment on above: Performed By: #### C MP, CBCAD, LIPD #### [facility] [address] [place], [place] [id number] Neutrophils (Bld) [#/Vol] 13.5 10*3/uL High 1.5-7.8 [facility] Comment on above: Performed By: #### C MP, CBCAD, LIPD #### [facility] [address] [place], [place] [id number] Neutrophils/100 WBC (Bld) 83.0 % Normal [facility] Comment on above: Performed By: #### C MP, CBCAD, LIPD #### [facility] [address] [place], [place] [id number] Platelet mean volume (Bld) [Entitic vol] 10.60 fL Normal 7.50-12.50 [facility] Comment on above: Performed By: #### C MP, CBCAD, LIPD #### [facility] [address] [place], [place] [id number] Platelets (Bld) [#/Vol] 271 10*3/uL Normal 140-400 [facility] Comment on above: Performed By: #### C MP, CBCAD, LIPD #### [facility] [address] [place], [place] [id number] RBC (Bld) [#/Vol] 3.85 10*6/uL Low 3.90-5.20 [facility] Comment on above: Performed By: #### C MP, CBCAD, LIPD #### [facility] [address] [place], [place] [id number] RDW-SD 48.1 fL Normal 37.0-50.0 [facility] Comment on above: Performed By: #### C MP, CBCAD, LIPD #### [facility] [address] [place], [place] [id number] WBC (Bld) [#/Vol] 16.3 10*3/uL High 3.8-11.0 [facility] Comment on above: Performed By: #### C MP, CBCAD, LIPD #### [facility] [address] [place], [place] [id number] Comprehensive Metabolic Pane litzy 09-23-2021 Albumin [Mass/Vol] 4.0 g/dL Normal 3.6-5.1 [facility] Comment on above: Performed By: #### C MP, CBCAD, LIPD #### [facility] [address] [place], [place] [id number] Albumin/Globulin [Mass ratio] 2.4 {ratio} Normal 1.0-2.5 [facility] Comment on above: Performed By: #### C MP, CBCAD, LIPD #### [facility] [address] [place], [place] [id number] ALP [Catalytic activity/Vol] 67 U/L Normal 35-119 [facility] Comment on above: Performed By: #### C MP, CBCAD, LIPD #### [facility] [address] [place], [place] [id number] ALT [Catalytic activity/Vol] 12 U/L Normal 6-33 [facility] Comment on above: Result Comment: 06/08 Female reference range changed. Performed By: #### C MP, CBCAD, LIPD #### [facility] [address] [place], [place] [id number] Anion gap [Moles/Vol] 18 mmol/L Normal 12-20 [facility] Comment on above: Result Comment: Effe ctive 07/14/2019 reference range changed. Performed By: #### C MP, CBCAD, LIPD #### [facility] [address] [place], [place] [id number] AST [Catalytic activity/Vol] 17 U/L Normal 9-34 [facility] Comment on above: Performed By: #### C MP, CBCAD, LIPD #### [facility] [address] [place], [place] [id number] Bilirubin [Mass/Vol] 0.52 mg/dL Normal 0.30-1.20 [facility] Comment on above: Performed By: #### C MP, CBCAD, LIPD #### [facility] [address] [place], [place] [id number] BUN/CREA 30 Ratio High 6-22 [facility] Comment on above: Performed By: #### C MP, CBCAD, LIPD #### [facility] [address] [place], [place] [id number] Calcium [Mass/Vol] 8.9 mg/dL Normal 8.6-10.2 [facility] Comment on above: Performed By: #### C MP, CBCAD, LIPD #### [facility] [address] [place], [place] [id number] Chloride [Moles/Vol] 96 mmol/L Low 98-107 [facility] Comment on above: Performed By: #### C MP, CBCAD, LIPD #### [facility] [address] [place], [place] [id number] CO2 [Moles/Vol] 29 mmol/L Normal 20-31 [facility] Comment on above: Performed By: #### C RAHEL NATH, LIPD #### [facility] [address] [place], [place] [id number] Creatinine [Mass/Vol] 0.8 mg/dL Normal 0.6-1.4 [facility] Comment on above: Performed By: #### C PORTILLO, CBCCALLUM, LIPD #### [facility] [address] [place], [place] [id number] eGFRAA 87 mL/min/1.73m2 Normal >60 [facility] Comment on above: Performed By: #### C PORTILLO CBCCALLUM, LIPD #### [facility] [address] [place], [place] [id number] eGFRNAA 72 mL/min/1.73m2 Normal >60 [facility] Comment on above: Performed By: #### C PORTILLO CBCCALLUM, LIPD #### [facility] [address] [place], [place] [id number] Globulin (S) [Mass/Vol] 1.7 g/dL Low 1.9-3.7 [facility] Comment on above: Performed By: #### C PORTILLO CBCCALLUM, LIPD #### [facility] [address] [place], [place] [id number] Glucose [Mass/Vol] 186 mg/dL High 65-99 [facility] Comment on above: Result Comment: For FASTING Glucose --- ADA reference ranges: Normal 65-99 mg/dl Prediabetes 100-125 Diabetes >/= 126 Performed By: #### C PORTILLO, CBCAD, LIPD #### [facility] [address] [place], [place] [id number] Potassium [Moles/Vol] 3.8 mmol/L Normal 3.5-5.5 [facility] Comment on above: Performed By: #### C PORTILLO, CBCAD, LIPD #### [facility] [address] [place], [place] [id number] Protein [Mass/Vol] 5.7 g/dL Low 6.1-8.1 [facility] Comment on above: Performed By: #### C MP, CBCAD, LIPD #### [facility] [address] [facility] [place] [id number] Sodium [Moles/Vol] 138 mmol/L Normal 135-146 [facility] Comment on above: Performed By: #### C MP, CBCAD, LIPD #### [facility] [address] [facility] [place] [id number] Urea nitrogen [Mass/Vol] 23 mg/dL Normal 7-25 [facility] Comment on above: Performed By: #### C MP, CBCAD, LIPD #### [facility] [address] [facility] [place] [id number] Lipid Panelon 09-23-2021 Cholesterol [Mass/Vol] 155 mg/dL Normal 125-200 [facility] Comment on above: Result Comment: Low risk < 200mg/dL Borderline risk 201-239 mg/dl High risk > or equal to 240 Performed By: #### C PORTILLO, CBCAD, LIPD #### [facility] [address] [facility] [place] [id number] Cholesterol in HDL [Mass/Vol] 44 mg/dL Normal >40 [facility] Comment on above: Result Comment: High Cardiovascular Risk HDL <40 mg/dL Low Cardiovascular Risk HDL > or equal to 60 mg/dl Performed By: #### C PORTILLO, CBCAD, LIPD #### [facility] [address] [place], [place] [id number] Cholesterol in LDL [Mass/Vol] 71 mg/dL Normal [facility] Comment on above: Result Comment: LDL ATP III CLASSIFICATION LDL less than 100 mg/dl Optimal LDL 100-129 mg/dl Near or above optimal LDL 130-159 Borderline high LDL 160-189 High LDL greater than 189 mg/dl Very High Performed By: #### C MP, CBCAD, LIPD #### [facility] [address] [facility] [place] [id number] Cholesterol in VLDL [Mass/Vol] 40 mg/dL Normal [facility] Comment on above: Performed By: #### C MP, CBCAD, LIPD #### [facility] [address] [facility] [place] [id number] Cholesterol.total/ Cholesterol in HDL [Mass ratio] 4 {ratio} Normal [facility] Comment on above: Performed By: #### C MP, CBCAD, LIPD #### [facility] [address] [place], [place] [id number] Triglyceride [Mass/Vol] 202 mg/dL High 30-150 [facility] Comment on above: Result Comment: TRIG ATPIII CLASSIFICATIONS TRIG less than 150 mg/dl Normal TRIG 150-199 mg/dl Borderline High TRIG 200-500 mg/dl High TRIG greather than 500 mg/dl Very High Performed By: #### C MP, CBCAD, LIPD #### [facility] [address] [place], [place] [id number] Uric Acidon 09-23-2021 URIC 5.5 mg/dL Normal 2.5-7.0 [facility] Comment on above: Result Comment: Refe rence range change 05/25/2017. Prior reference range F 2.4-5.7mg/dL. M 3.4-7.0 mg/dL. Performed By: #### U NICOLETTE #### [facility] [address] [place], [place] [id number] CNPNon 02-16-2021 CNPN Telephone (RADTSA) -------- BENIGNO CHO ([id number]) 1935 F Date Time Provider Department 02/16/21 Alejo MAHAJAN During your visit today, we recorded the following information about you: Nevin Kaye RN 02/16/2021 12:44 PM Signed MD Nolan Lorenzana [facility] Rad Nurse Pool Screening mammo and result only call in one year PSS- please schedule as above. GLO- please sign new Seth order. The prior order will be denied because of the breast CA diagnosis. They will not do screening seth if we attach that. Thanks BETY Thomas 02/17/2021 9:09 AM Signed Patient has been scheduled as instructed. Carlos Trejooten Allergies As of Date: 02/16/2021 Noted Allergy Reaction BACTRIM (SULFAMETHOXAZOLE) 02/13/2011 4 - Hives KEFLEX (CEPHALEXIN) 02/13/2011 4 - Hives Date Reviewed: 03/21/2017 Reviewed by: Hien Estes) BETY Turner - Fully Assessed Reason for Visit: Future Appointment [256] Primary Visit Diagnosis:Encounter for screening mammogram for malignant neoplasm of breast [Z12.31] Order(s):[facility] SCREENING [7631336] Order #: [id number] FUTURE Prescriptions as of 02/17/2021 - oxybutynin [...] If no pain relief call 911. - [place]-3 Fatty Acids-Vitamin E (FISH OIL) 1,000 mg [...] Encounter Status:Closed by NEVIN KAYE on 02/17/21 Normal [facility] En[facility] Encounter Date Encounter Type Care Provider Facility Start: 09-24-2023 End: 09-24-2023 ambulatory [facility] Start: 09-24-2023 End: 09-24-2023 ambulatory ANITA DUDLEY Not Available Start: 09-06-2023 End: 09-06-2023 ambulatory DONY MCDONALD Not Available Start: 07-26-2023 End: 07-26-2023 ambulatory [facility] Start: 07-16-2023 End: 07-16-2023 ambulatory ANITA DUDLEY Not Available Start: 06-18-2023 End: 06-18-2023 ambulatory DONY MCDONALD Not Available Start: 10-31-2022 End: 11-01-[address] ANITA DUDLEY Facility:[facility] Start: 06-06-2022 End: 06-07-[address] ANITA DUDLEY Facility:[facility] Start: 04-21-2022 Encounter for preprocedural cardiovascular examination KARIME BLACK [facility] Start: 04-20-2022 End: 04-21-2022 ambulatory KARIME BLACK Facility:[facility] Start: 04-20-2022 End: 04-21-2022 Encounter for preprocedural cardiovascular examination KARIME BLACK Facility:[facility] Start: 04-20-2022 Encounter for other preprocedural examination DR WAYNE JENNINGS [facility] Start: 04-18-2022 End: 04-19-[address] WAYNE JENNINGS Facility:[facility] Start: 04-18-2022 End: 04-19-2022 Encounter for other preprocedural examination DR WAYNE JENNINGS Facility:[facility] Payers Date Payer Category Payer Medicare [id number] 1960 Medicare [id number] 1935 Unknown [id number] 2.16.84 [id number] 1935 Unknown [id number] 2.16.84 [id number] 1935 Unknown [id number] 2.16.84 [id number] 1935 Unknown [id number] 2.16.84 [id number] 1935 Unknown [id number] 2.16.84 [id number] 1935 Unknown [id number] 2.16.84 [id number] 1935 Unknown [id number] 2.16.840 .[id number] 1935 Unknown [id number] 2.16.840 .[id number] Progress note 09-24-2023 Note Date & Type Note Facility 09-24-2023 Note [place] [facility] Zakiya Cho is a 88 y.o. year old female patient being seen for follow up echo and to discuss possible heart cath per Dr. Zuniga. She had CBC, CMP, and lipid panel drawn this morning at [facility]. Patient still denies chest pain, SOB, palpitations, and lightheadedness/syncope. Patient Active Problem List Diagnosis Chest discomfort [...] CAD as follows: She had acute inferior GA in 2004 treated by PCI to the RCA. She then had additional stenting of the RCA in July 2005. Subsequently had Cath 2005 with additional PCI ALO to RCA and LAD. She also had a cath in 2009 at [facility] and underwent additional stenting. This was complicated by retroperitoneal bleeding but she did well after that. She has history of hypertension and hyperlipidemia on treatment. She has diabetes. Previously Simvastatin was stopped due to good cholesterol levels, I had resumed it at a prior vist. I last saw her on 07/26/2023 and she was doing clinically well. Given long time since evaluation of her ventricular function and her prior complex history of coronary stenting I checked an echocardiogram and this showed a new drop in ejection fraction down to 30-35%. she recently had a life scan that showed no significant coronary artery disease or peripheral vascular disease. Her EGFR was 57. Today she reports that she has been well with no chest pain at rest or on exertion. She has no dyspnea on exertion. She has no claudication. She has no dizziness. She has no complaints. Review of Systems Musculoskeletal: Positive for arthritis, back pain and joint pain. All other systems reviewed and are negative. Objective Visit Vitals BP 128/66 (BP Location: Right arm, Patient Position: Sitting) Pulse 64 Ht 1.499 m (4' 11 ) Wt 63.5 kg (140 lb) SpO2 100% BMI 28.28 kg/m??? Smoking Status Never BSA 1.63 m??? Physical Exam Constitutional: Appearance: She is [...] morning and at bedtime., Disp: , Rfl: benazepril (Lotensin) 20 mg tablet, Take 20 mg by mouth in the morning., Disp: , Rfl: calcium ci (more content not included)... [facility] Progress note 07-26-2023 Note Date & Type Note Facility 07-26-2023 Note [place] [facility] Subjective Benigno Cho is a [...] CAD as follows: She had acute inferior GA in 2004 treated by PCI to the RCA. She then had additional stenting of the RCA in July 2005. Subsequently had Cath 2005 with additional PCI ALO to RCA and LAD. She also had a cath in 2009 at [facility] and underwent additional stenting. This was complicated [...] nitroglycerin (Nitrostat) 0.4 (more content not included)... [facility] Progress note 02-16-2021 Note Date & Type Note Facility 02-16-2021 Note HNO ID: [id number] Author: Alejo Mahajan MD Service: ? Author [...] Time Spent: 4 minutes Alejo Mahajan MD [facility] Summary Purpose Family History No Family History Records FoundNo Family History Records FoundNo Family History Records FoundNo Family History Records FoundNo Family History Records Found Advance Directives No Advanced Directives Records FoundNo Advanced Directives Records FoundNo Advanced Directives Records FoundNo Advanced Directives Records FoundNo Advanced Directives Records Found Additional Source Comments INFORMATION SOURCE (unrecogn ized section and content) DATE CREATED AUTHOR 08/10/2021 [facility] DATE CREATED AUTHOR AUTHOR'S ORGANIZ ATION 09/24/2021 [facility] DATE CREATED AUTHOR AUTHOR'S ORGANIZ ATION 11/04/2022 [facility] DATE CREATED AUTHOR AUTHOR'S ORGANIZ ATION 09/24/2023 [facility] EPIC DATE CREATED AUTHOR AUTHOR'S ORGANIZ ATION 09/24/2023 [facility] FOR RECORDS PERTAINING TO PATIENTS WHO [...] BE BASED ON THE PRIMARY CLINICAL RECORDS. [employer] provides no warranty or guarantee of the accuracy or completeness of information in this document.
[2023-10-03 12:44] LABS: Glucometer 173 mg/dL (74-106)
--- NOTE | 2023-10-03 12:45 | ECG_ITS ---
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
[2023-10-03 13:01] LABS: Basophils Absolute Auto 0.1 10^3/uL (0.0-0.1); Basophils Percent Auto 0.4 % (0.2-2.0); Eosinophils Absolute Auto 0.1 10^3/uL (0.0-0.7); Eosinophils Percent Auto 0.8 % (0.9-7.0); Hematocrit 39.1 % (36.0-48.0); Hemoglobin 13.3 g/dL (12.0-16.0); Immature Granulocytes Abs Auto 0.03 10^3/uL (0.00-0.03); Immature Granulocytes Pct Auto 0.3 % (0.0-0.5); Lymphocytes Absolute Auto 2.1 10^3/uL (1.2-3.8); Lymphocytes Percent Auto 18.4 % (20.5-60.0); Mean Corpuscular Hemoglobin 32.5 pg (26.7-34.0); Mean Corpuscular Volume 95.6 fL (81.0-99.0); Mean Platelet Volume 10.1 fL (9.5-13.5); Monocytes Absolute Auto 0.7 10^3/uL (0.3-0.8); Monocytes Percent Auto 5.7 % (1.7-12.0); Neutrophils Absolute Auto 8.7 10^3/uL (1.4-6.5); Neutrophils Percent Auto 74.4 % (43.0-75.0); Platelet Count 305 10^3/uL (150-450); Red Blood Count 4.09 10^6/uL (4.20-5.40); Red Cell Distribution Width 12.5 % (11.0-15.0); White Blood Count 11.7 10^3/uL (4.0-11.0)
[2023-10-03 13:22] LABS: Anion Gap 14.1; BUN Creatinine Ratio 23.4; Bilirubin Total 0.4 mg/dL (0.2-1.0); Calcium 9.3 mg/dL (8.5-10.1); Carbon Dioxide 25.9 mmol/L (21.0-32.0); Chloride 98 mmol/L (98-107); Estimated GFR (African America 56 (>=60); Estimated GFR (Non-African Ame 46 (>=60); Glucose 177 mg/dL (74-106); Sodium 134 mmol/L (136-145)
[2023-10-03 13:23] LABS: Alanine Aminotransferase 12 U/L (14-59); Albumin Level 3.7 g/dL (3.4-5.0); Alkaline Phosphatase 67 U/L (46-116); Aspartate Amino Transferase 14 U/L (15-37); Globulin 3.6 g/dL; Total Protein 7.3 g/dL (6.4-8.2); Troponin I High Sensitivity 20.1 pg/mL (4.0-51.3)
--- NOTE | 2023-10-03 13:27 | XR_ITS ---
The [address] [address] Patient Name: BENIGNO CHO MRN: [id number] date: 1935 Sex: F Assigned Patient Location: ER Current Patient Location: ED.MAIN Accession/Order Number: [id number] Exam Date: 10/03/2023 13:40 Report Date: 10/03/2023 14:25 At the request of: KRISTIN CAMARENA Procedure: XR chest 1V EXAM: XR chest 1V HISTORY: weak COMPARISON: None. TECHNIQUE: Chest X-ray AP, 1 view FINDINGS: Support devices: None. Lungs/pleura: No consolidation, effusion, or pneumothorax. Right basilar hazy opacity, may represent atelectasis. Heart and mediastinum: Normal contours. Bones: No acute abnormality identified. XR/XR chest 1V Impression: Right basilar hazy opacity, may represent atelectasis. Electronically authenticated by: MEMO SIMMONS Date: 10/03/2023 14:25
--- NOTE | 2023-10-03 13:43 | ED.WEAKNESS1 ---
HPI - Weakness General Chief complaint: Weakness Stated complaint: LOW BLOOD PRESSURE Time Seen by Provider: 10/03/23 13:16 Source: patient Mode of arrival: walk-in Limitations: no limitations History of Present Illness HPI Narrative: This patient is here at the family for weakness episode at home. She had a routine follow-up with her eye doctor in [place] today and felt fine. When she got home the family member says she was sitting at the table and just kind of put her head down like she felt weak. They took her blood pressure and it was very low initially. They waited and took it again and it had recovered a little bit but they felt it was better they brought her here to the ER. On arrival here her vital signs were normal on arrival. She was recently new medicine by her charge accounts audit clerk. She recently had a echocardiogram done at this institution. She has does not have any chest pain or shortness of breath. She has not had any nausea or vomiting. She has not had any black bowel movements. She has no neurological symptoms. She did not have double vision slurred speech or paresis. She had an echocardiogram done at this institution in August that showed moderate decrease in EF at approximately 35%. She had a CT scan last year in April that did not show any acute vascular abnormalities. Related Data Home Medications ?Medication ?Instructions ?Recorded ?Confirmed benazepril 20 mg tablet 20 mg PO DAILY 10/03/23 10/03/23 empagliflozin 10 mg tablet 10 mg PO DAILY 10/03/23 10/03/23 (Jardiance) hydrochlorothiazide 25 mg tablet 25 mg PO DAILY 10/03/23 10/03/23 metoprolol succinate 25 mg 25 mg PO DAILY 10/03/23 10/03/23 tablet,extended release 24 hr nitroglycerin 0.4 mg sublingual 0.4 mg sublingual Q5M PRN chest 10/03/23 10/03/23 tablet pain oxybutynin chloride 5 mg tablet 5 mg PO DAILY 10/03/23 10/03/23 simvastatin 40 mg tablet 40 mg PO DAILY 10/03/23 10/03/23 spironolactone 25 mg tablet 25 mg PO DAILY 10/03/23 10/03/23 tramadol 50 mg tablet mg 10/03/23 Allergies Allergy/AdvReac Type Severity Reaction Status Date / Time cephalexin [From Keflex] Allergy Severe Hives Verified 10/03/23 12:29 sulfamethoxazole Allergy Severe Verified 10/03/23 12:29 [From Bactrim] trimethoprim [From Bactrim] Allergy Severe Verified 10/03/23 12:29 Exam Narrative Exam Narrative: Awake alert very spunky. In no distress without any symptoms at this time and has normal vital signs. Her blood pressure is good. She is wearing dark glasses because her eyes were recently dilated this morning at her doctor's office. She has no meningeal irritation or nuchal rigidity and no confusion GCS is 15. Her lungs are completely clear with no wheeze rales or rhonchi that she has a large incision in her mid thoracic area consistent with previous surgery for skin cancer. Heart sounds are normal with no S3-S4 or murmur. She has no abdominal pain or discomfort. Her extremities show no evidence of peripheral edema phlebitis or DVT. Constitutional Vital Signs, click to edit/add: Last Vital Signs Temp 98.1 F 10/03/23 12:20 Pulse 69 10/03/23 13:00 Resp 15 10/03/23 13:00 BP 127/62 10/03/23 12:29 Pulse Ox 99 10/03/23 13:00 Course Vital Signs Vital signs: Vital Signs Temperature 98.1 F 10/03/23 12:20 Pulse Rate 69 10/03/23 12:20 Respiratory Rate 16 10/03/23 12:20 Blood Pressure 143/77 H 10/03/23 12:20 Pulse Oximetry 98 10/03/23 12:20 Temperature 98.1 F 10/03/23 12:20 Pulse Rate 69 10/03/23 13:00 Respiratory Rate 15 10/03/23 13:00 Blood Pressure 127/62 10/03/23 12:29 Pulse Oximetry 99 10/03/23 13:00 MDM - Weakness MDM Narrative Medical decision making narrative: Patient's laboratory laboratory studies were done and are essentially normal. I am awaiting official interpretation of chest x-ray but it also was viewed by myself and appears normal. I spoke with her charge accounts audit clerk today and they just added spironolactone to her treatment regimen. They would like that be discontinued. They are scheduling to see her in October. She was advised to call them should she have any change in her symptoms. Lab Data Labs: Lab Results 10/03/23 10/03/23 Range/Units 12:42 12:52 WBC 11.7 H (4.0-11.0) 10^3/uL RBC 4.09 L (4.20-5.40) 10^6/uL Hgb 13.3 (12.0-16.0) g/dL Hct 39.1 (36.0-48.0) % MCV 95.6 (81.0-99.0) fL MCH 32.5 (26.7-34.0) pg MCHC 34.0 (29.9-35.2) g/dL RDW 12.5 (11.0-15.0) % Plt Count 305 (150-450) 10^3/uL MPV 10.1 (9.5-13.5) fL Neut % (Auto) 74.4 (43.0-75.0) % Lymph % (Auto) 18.4 L (20.5-60.0) % Irwin % (Auto) 5.7 (1.7-12.0) % Eos % (Auto) 0.8 L (0.9-7.0) % Baso % (Auto) 0.4 (0.2-2.0) % Neut # (Auto) 8.7 H (1.4-6.5) 10^3/uL Lymph # (Auto) 2.1 (1.2-3.8) 10^3/uL Irwin # (Auto) 0.7 (0.3-0.8) 10^3/uL Eos # (Auto) 0.1 (0.0-0.7) 10^3/uL Baso # (Auto) 0.1 (0.0-0.1) 10^3/uL Abs Immat Gran (auto) 0.03 (0.00-0.03) 10^3/uL Imm/Tot Granulo (auto) 0.3 (0.0-0.5) % Sodium 134 L (136-145) mmol/L Potassium 4.0 (3.5-5.1) mmol/L Chloride 98 (98-107) mmol/L Carbon Dioxide 25.9 (21.0-32.0) mmol/L Anion Gap 14.1 BUN 26.0 H (7.0-18.0) mg/dL Creatinine 1.11 H (0.55-1.02) mg/dL Est GFR ( Amer) 56 L (>=60) Est GFR (Non-Af Amer) 46 L (>=60) BUN/Creatinine Ratio 23.4 Glucose 177 H (74-106) mg/dL Calcium 9.3 (8.5-10.1) mg/dL Total Bilirubin 0.4 (0.2-1.0) mg/dL AST 14 L (15-37) U/L ALT 12 L (14-59) U/L Alkaline Phosphatase 67 (46-116) U/L Troponin I High Sens 20.1 (4.0-51.3) pg/mL Total Protein 7.3 (6.4-8.2) g/dL Albumin 3.7 (3.4-5.0) g/dL Globulin 3.6 g/dL Albumin/Globulin Ratio 1.0 POC Glucose 173 H (74-106) mg/dL Discharge Plan Discharge Stand Alone Forms: Portal Instructions Chief Complaint: Weakness Clinical Impression: Acute hypotension Patient Disposition: Home, Self-Care Time of Disposition Decision: 13:54 Prescriptions / Home Meds: No Action Jardiance 10 mg tablet 10 mg PO DAILY metoprolol succinate 25 mg tablet extended release 24 hr 25 mg PO DAILY spironolactone 25 mg tablet 25 mg PO DAILY hydrochlorothiazide 25 mg tablet 25 mg PO DAILY nitroglycerin 0.4 mg tablet, sublingual 0.4 mg sublingual Q5M PRN (Reason: chest pain) oxybutynin chloride 5 mg tablet 5 mg PO DAILY tramadol 50 mg tablet simvastatin 40 mg tablet 40 mg PO DAILY benazepril 20 mg tablet 20 mg PO DAILY Print Language: Georgian Additional Instructions: Stop spironolactone/follow-up with your cardiology doctor Referrals: ANITA DUDLEY [Primary Care Provider] - 1 week
== END 2023-10-03 14:32 | disposition home or self-care (01) ==
PROVIDERS: Emergency Provider Emergency Medicine Emergency Medical Services; PCP Family Medicine
DX: I95.9 Hypotension, unspecified (principal); Z79.899 Other long term (current) drug therapy
CPT/HCPCS: 36415; 71045; 80053; 84484; 85025; 93005; 99285

== ENCOUNTER 2023-10-12 07:13 | Outpatient (OUT) | payer MEDICARE, SELFPAY ==
--- NOTE | 2023-10-12 | PCN_ITS ---
CARDIAC STRESS TEST Requesting Physician: Procedure Date: 10/12/2023 This was a Lexiscan stress test with myocardial perfusion imaging performed at the [facility] on 10/12/2023. Informed consent was obtained. An intravenous line was secured and the patient was attached to electrocardiographic monitoring. Baseline ECG and vital signs were obtained. Lexiscan 0.4 mg was infused intravenously, followed by administration of Cardiolite. The patient went on to obtain myocardial perfusion images. Resting heart rate was 57 BPM and maximum heart rate was 92 BPM. Resting blood pressure was 126/66 and maximum blood pressure was 138/62. Resting ECG showed sinus bradycardia with first degree AV block and possible prior anteroseptal myocardial infarction. Following infusion of Lexiscan, there was evidence of sinus rhythm with first degree AV block and occasional PVCs, but no ischemic ST changes. Final ECG was comparable to baseline. SUMMARY OF THE FINDINGS: 1. No evidence of ischemic ECG changes following infusion of Lexiscan. 2. Myocardial perfusion images will be reported separately. MTDD
--- NOTE | 2023-10-12 07:02 | NM_ITS ---
Patient Name: BENIGNO CHO MR#: [id number] : 1935 Exam Date: 10/12/2023 Ordering Doctor: DR WAYNE CHANDLER M.D. RADIOLOGY REPORT PROCEDURE: NM ANAMIKA PERF SPECT REST STR COMPARISON: None. INDICATIONS: ACUTE SYSTOLIC HEART FAILURE TECHNIQUE: Exam Description: Stress/Rest one day protocol gated SPECT Rest Imagin.2 mCi Tc-99m Cardiolite IV on 10/12/2023 Stress Imaging 31.3 mCi Tc-99m Cardiolite IV on 10/12/2023 Exercise Protocol: 0.4 mg Lexiscan given IV Heart Rate (bpm): Rest: 57 Max: 92 PMHR: 70 Blood Pressure: Rest: 126/66 Max: 138/62 Symptoms: Rest and peak stress ECG findings were normal and the exercise portion of the study was normal per attending physician Dr. Chandler . For more details please see separate cardiac stress test report. FINDINGS: QUALITY OF STUDY: Excellent. PERFUSION DEFECT: None. LOCATION: Mid-inferior. SIZE: SEVERITY: TYPE: WALL MOTION: Moderate hypokinesis: Basal inferior. LV SIZE: Normal. 101 mL. TID / TCD: None; 1.1 LVEF: Abnormal. Calculated EF 41%. SUMMARY: Myocardial perfusion imaging study has ABNORMAL findings. CONCLUSION: 1. No acute or reversible ischemia. No appreciable significant remote infarction. 2. Low left ventricle ejection fraction and moderate hypokinesis of the inferior wall predominant involving the base and mid body. 3. Normal left ventricle volume Dictated by: Herman Anthony M.D. on 10/12/2023 at 13:46 Approved by: Herman Anthony M.D. on 10/12/2023 at 13:51
--- OUTSIDE RECORDS SUMMARY | 2023-10-12 07:16 | XMS_ITS | CCD ---
Author Organization [facility] Care Team Providers Care [address] Name Role Phone DICK, DR BLACK Admitting [...] (1 source) ALPRAZolam Drug Allergy 5 [facility] Repository (1 source) Cephalexin Drug Allergy 5 [facility] Repository (1 source) oxyCODONE Drug Allergy 1 [facility] Repository (1 source) Sulfamethoxazole / Trimethoprim Drug Allergy 5 [facility] Repository (1 source) Sulfonamides (Antibiotic) Drug allergy (disorder) 5 [facility] Repository (1 source) Cephalexin; Translations: [CEPHALEXIN] Drug Allergy 1 [facility] Repository (1 source) Sulfamethoxazole; Translations: [SULFAMETHOXAZOLE] Drug Allergy 1 [facility] Repository (1 source) Sulfamethoxazole / Trimethoprim; Translations: [SULFAMETHOXAZOLE-TR IMETHOPRIM] Drug Allergy 2 [facility] Repository (1 source) Trimethoprim; Translations: [TRIMETHOPRIM] Drug Allergy 1 [facility] Repository Problems Active Problems Problem Classification Problem Date Documented Date Episodic/Chronic Congestive heart failure; nonhypertensive (2 sources) Acute systolic (congestive) heart failure; Translations: [Acute systolic (congestive) heart failure] Onset: 09-24-2023 Chronic Coronary atherosclerosis and other heart disease (4 sources) Atherosclerotic heart disease of [place] coronary artery without angina pectoris; Translations: [Old [...] Range Facility Office Visiton 09-24-2023 Follow-up visit [id number] Dennis Cho 1935 F Date Provider Department Center 09/24/2023 WAYNE GANT CARD [facility] No family history on file Level of Service:01858 IN OFFICE/OUTPATIENT ESTABLISHED MOD MDM 30 MIN Normal [facility] 36on 09-13-2023 36 Regarding echo from 09/03/2023: MD Nat Mar MA her echocardiogram showed reduced ejection fraction at 30 to 35%. She needs to be seen in the office to adjust medications due to heart failure and to discuss cardiac catheterization. Spoke with patient and scheduled her to see Dr. Zuniga on 09/23. Normal [facility] Office Visiton 07-26-2023 Follow-up visit [id number] Sapphire Chosamantha Brannon 1935 F Date Provider Department Center 07/26/2023 367-WAYNE ZUNIGA [facility] [place] No family history on file Level of Service:72676 IN OFFICE/OUTPATIENT ESTABLISHED LOW MDM 20 MIN Normal [facility] XR DEXA BONE DENSITYon 10-31 XR DEXA [...] authenticated by: HERMAN ANTHONY Date: 2022-10-31 09:16 [facility] MG MAMM SCREEN 3D CATHLEEN CADon 06-06-2022 MG MAMM SCREEN 3D CATHLEEN CAD Patient: BENIGNO CHOColby Exam Date: 06/06/2022 : 1935 Gender:F Ordering : DR ANITA DUDLEY M.D. Admission #: [id number] Family : Order #: [id number] CLICK HERE TO VIEW EXAM RADIOLOGY REPORT [...] Radiation, Chemotherapy, Tamoxifen Family Cancers None LOCATION: [facility] BREAST COMPOSITION: Heterogeneously dense,which may [...] Anthony M.D. on 06/07/2022 at 15:08 Normal [facility] PROF CHEM 8 (BAS METB)on Anion gap [Moles/Vol] 12.9 mmol/L Normal [facility] Comment on above: Performed By: #### B MP #### [facility] [address] [address] [address] Justin Sidhu Calcium [Mass/Vol] 8.8 mg/dL Normal 8.5-10.1 [facility] Comment on above: Performed By: #### B MP #### [facility] [address] [address] [address] Justin Sidhu Chloride [Moles/Vol] 99 mmol/L Normal 98-107 [facility] Comment on above: Performed By: #### B MP #### [facility] [address] [address] [address] Justin Sidhu CO2 [Moles/Vol] 25.9 mmol/L Normal 21.0-32.0 [facility] Comment on above: Performed By: #### B MP #### [facility] [address] [address] [address] Justin Sidhu Creatinine [Mass/Vol] 0.75 mg/dL Normal 0.55-1.02 [facility] Comment on above: Performed By: #### B MP #### [facility] [address] [address] [address] Justin Sidhu EGFR-AF CONGOLESE >60 Normal >=60 [facility] Comment on above: Performed By: #### B MP #### [facility] [address] [address] [address] Justin Sidhu EGFR-NON AF CONG[place]ESE >60 Normal >=60 [facility] Comment on above: Performed By: #### B MP #### [facility] [address] [address] [address] Justin Sidhu Glucose [Mass/Vol] 123 mg/dL Critically high 74-106 T [facility] Comment on above: Performed By: #### B MP #### [facility] [address] [place] [address] Dr. Justin Sidhu Potassium [Moles/Vol] 4.8 mmol/L Normal 3.5-5.1 [facility] Comment on above: Result Comment: SPEC IMEN SLIGHTLY HEMOLIZED Performed By: #### B MP #### [facility] [address] [place] [address] Dr. Justin Sidhu Sodium [Moles/Vol] 133 mmol/L Critically low 136-145 Th [facility] Comment on above: Performed By: #### B MP #### [facility] [address] [address] [address] Justin Sidhu Urea nitrogen [Mass/Vol] 19.0 mg/dL Critically high 7.0-18.0 [facility] Comment on above: Performed By: #### B MP #### [facility] [address] [address] [address] Justin Sidhu Urea nitrogen/Creatinin e [Mass ratio] 25.3 mg/mg Normal [facility] Comment on above: Performed By: #### B MP #### [facility] [address] [address] [address] Justin Sidhu Complete Blood Count with Au to Diffon 09-23-2021 Basophils (Bld) [#/Vol] 0.04 10*3/uL Normal 0.00-0.20 [facility] Comment on above: Performed By: #### C MP, CBCAD, LIPD #### [facility] [address] [place], [place] [id number] Basophils/100 WBC (Bld) 0.2 % Normal [facility] Comment on above: Performed By: #### C MP, CBCAD, LIPD #### [facility] [address] [place], [place] [id number] Eosinophils (Bld) [#/Vol] 0.10 10*3/uL Normal 0.02-0.50 [facility] Comment on above: Performed By: #### C MP, CBCAD, LIPD #### [facility] [address] [place], [place] [id number] Eosinophils/100 WBC (Bld) 0.6 % Normal [facility] Comment on above: Performed By: #### C MP, CBCAD, LIPD #### [facility] [address] [place], [place] [id number] Erythrocyte distribution width (RBC) [Ratio] 13.4 % Normal 11.0-15.0 [facility] Comment on above: Performed By: #### C MP, CBCAD, LIPD #### [facility] [address] [place], [place] [id number] Hematocrit (Bld) [Volume fraction] 37.9 % Normal 35.0-47.0 [facility] Comment on above: Performed By: #### C MP, CBCAD, LIPD #### [facility] [address] [place], [place] [id number] Hemoglobin (Bld) [Mass/Vol] 12.8 g/dL Normal 11.6-15.5 [facility] Comment on above: Performed By: #### C MP, CBCAD, LIPD #### [facility] [address] [place], [place] [id number] Lymphocytes (Bld) [#/Vol] 1.6 10*3/uL Normal 0.9-3.9 [facility] Comment on above: Performed By: #### C MP, CBCAD, LIPD #### [facility] [address] [place], [place] [id number] Lymphocytes/100 WBC (Bld) 9.6 % Normal [facility] Comment on above: Performed By: #### C MP, CBCAD, LIPD #### [facility] [address] [place], [place] [id number] MCH (RBC) [Entitic mass] 33.2 pg High 27.0-33.0 [facility] Comment on above: Performed By: #### C MP, CBCAD, LIPD #### [facility] [address] [place], [place] [id number] MCHC (RBC) [Mass/Vol] 33.8 g/dL Normal 32.0-36.0 [facility] Comment on above: Performed By: #### C MP, CBCAD, LIPD #### [facility] [address] [place], [place] [id number] MCV (RBC) [Entitic vol] 98 fL Normal 80-100 [facility] Comment on above: Performed By: #### C MP, CBCAD, LIPD #### [facility] [address] [place], [place] [id number] Monocytes (Bld) [#/Vol] 1.0 10*3/uL High 0.2-0.9 [facility] Comment on above: Performed By: #### C MP, CBCAD, LIPD #### [facility] [address] [place], [place] [id number] Monocytes/100 WBC (Bld) 5.9 % Normal [facility] Comment on above: Performed By: #### C MP, CBCAD, LIPD #### [facility] [address] [place], [place] [id number] Neutrophils (Bld) [#/Vol] 13.5 10*3/uL High 1.5-7.8 [facility] Comment on above: Performed By: #### C MP, CBCAD, LIPD #### [facility] [address] [place], [place] [id number] Neutrophils/100 WBC (Bld) 83.0 % Normal [facility] Comment on above: Performed By: #### C MP, CBCAD, LIPD #### [facility] [address] [place], [place] [id number] Platelet mean volume (Bld) [Entitic vol] 10.60 fL Normal 7.50-12.50 [facility] Comment on above: Performed By: #### C MP, CBCAD, LIPD #### [facility] [address] [place], [place] [id number] Platelets (Bld) [#/Vol] 271 10*3/uL Normal 140-400 [facility] Comment on above: Performed By: #### C MP, CBCAD, LIPD #### [facility] [address] [place], [place] [id number] RBC (Bld) [#/Vol] 3.85 10*6/uL Low 3.90-5.20 [facility] Comment on above: Performed By: #### C MP, CBCAD, LIPD #### [facility] [address] [place], [place] [id number] RDW-SD 48.1 fL Normal 37.0-50.0 [facility] Comment on above: Performed By: #### C MP, CBCAD, LIPD #### [facility] [address] [place], [place] [id number] WBC (Bld) [#/Vol] 16.3 10*3/uL High 3.8-11.0 [facility] Comment on above: Performed By: #### C MP, CBCAD, LIPD #### [facility] [address] [place], [place] [id number] Comprehensive Metabolic Pane litzy 09-23-2021 Albumin [Mass/Vol] 4.0 g/dL Normal 3.6-5.1 [facility] Comment on above: Performed By: #### C MP, CBCAD, LIPD #### [facility] [address] [place], [place] [id number] Albumin/Globulin [Mass ratio] 2.4 {ratio} Normal 1.0-2.5 [facility] Comment on above: Performed By: #### C MP, CBCAD, LIPD #### [facility] [address] [place], [place] [id number] ALP [Catalytic activity/Vol] 67 U/L Normal 35-119 [facility] Comment on above: Performed By: #### C MP, CBCAD, LIPD #### [facility] [address] [place], [place] [id number] ALT [Catalytic activity/Vol] 12 U/L Normal 6-33 [facility] Comment on above: Result Comment: 06/08 Female reference range changed. Performed By: #### C MP, CBCAD, LIPD #### [facility] [address] [place], [place] [id number] Anion gap [Moles/Vol] 18 mmol/L Normal 12-20 [facility] Comment on above: Result Comment: Effe ctive 07/14/2019 reference range changed. Performed By: #### C MP, CBCAD, LIPD #### [facility] [address] [place], [place] [id number] AST [Catalytic activity/Vol] 17 U/L Normal 9-34 [facility] Comment on above: Performed By: #### C MP, CBCAD, LIPD #### [facility] [address] [place], [place] [id number] Bilirubin [Mass/Vol] 0.52 mg/dL Normal 0.30-1.20 [facility] Comment on above: Performed By: #### C MP, CBCAD, LIPD #### [facility] [address] [place], [place] [id number] BUN/CREA 30 Ratio High 6-22 [facility] Comment on above: Performed By: #### C MP, CBCAD, LIPD #### [facility] [address] [place], [place] [id number] Calcium [Mass/Vol] 8.9 mg/dL Normal 8.6-10.2 [facility] Comment on above: Performed By: #### C MP, CBCAD, LIPD #### [facility] [address] [place], [place] [id number] Chloride [Moles/Vol] 96 mmol/L Low 98-107 [facility] Comment on above: Performed By: #### C MP, CBCAD, LIPD #### [facility] [address] [place], [place] [id number] CO2 [Moles/Vol] 29 mmol/L Normal 20-31 [facility] Comment on above: Performed By: #### C RAHEL NATH, LIPD #### [facility] [address] [place], [place] [id number] Creatinine [Mass/Vol] 0.8 mg/dL Normal 0.6-1.4 [facility] Comment on above: Performed By: #### C PORTILLO, CBCCALLUM, LIPD #### [facility] [address] [place], [place] [id number] eGFRAA 87 mL/min/1.73m2 Normal >60 [facility] Comment on above: Performed By: #### C PORTILLO CBCCALLUM, LIPD #### [facility] [address] [place], [place] [id number] eGFRNAA 72 mL/min/1.73m2 Normal >60 [facility] Comment on above: Performed By: #### C PORTILLO CBCCALLUM, LIPD #### [facility] [address] [place], [place] [id number] Globulin (S) [Mass/Vol] 1.7 g/dL Low 1.9-3.7 [facility] Comment on above: Performed By: #### C PORTILLO CBCCALLUM, LIPD #### [facility] [address] [place], [place] [id number] Glucose [Mass/Vol] 186 mg/dL High 65-99 [facility] Comment on above: Result Comment: For FASTING Glucose --- ADA reference ranges: Normal 65-99 mg/dl Prediabetes 100-125 Diabetes >/= 126 Performed By: #### C PORTILLO, CBCAD, LIPD #### [facility] [address] [place], [place] [id number] Potassium [Moles/Vol] 3.8 mmol/L Normal 3.5-5.5 [facility] Comment on above: Performed By: #### C PORTILLO, CBCAD, LIPD #### [facility] [address] [place], [place] [id number] Protein [Mass/Vol] 5.7 g/dL Low 6.1-8.1 [facility] Comment on above: Performed By: #### C MP, CBCAD, LIPD #### [facility] [address] [facility] [place] [id number] Sodium [Moles/Vol] 138 mmol/L Normal 135-146 [facility] Comment on above: Performed By: #### C MP, CBCAD, LIPD #### [facility] [address] [facility] [place] [id number] Urea nitrogen [Mass/Vol] 23 mg/dL Normal 7-25 [facility] Comment on above: Performed By: #### C MP, CBCAD, LIPD #### [facility] [address] [facility] [place] [id number] Lipid Panelon 09-23-2021 Cholesterol [Mass/Vol] 155 mg/dL Normal 125-200 [facility] Comment on above: Result Comment: Low risk < 200mg/dL Borderline risk 201-239 mg/dl High risk > or equal to 240 Performed By: #### C PORTILLO, CBCAD, LIPD #### [facility] [address] [facility] [place] [id number] Cholesterol in HDL [Mass/Vol] 44 mg/dL Normal >40 [facility] Comment on above: Result Comment: High Cardiovascular Risk HDL <40 mg/dL Low Cardiovascular Risk HDL > or equal to 60 mg/dl Performed By: #### C PORTILLO, CBCAD, LIPD #### [facility] [address] [place], [place] [id number] Cholesterol in LDL [Mass/Vol] 71 mg/dL Normal [facility] Comment on above: Result Comment: LDL ATP III CLASSIFICATION LDL less than 100 mg/dl Optimal LDL 100-129 mg/dl Near or above optimal LDL 130-159 Borderline high LDL 160-189 High LDL greater than 189 mg/dl Very High Performed By: #### C MP, CBCAD, LIPD #### [facility] [address] [facility] [place] [id number] Cholesterol in VLDL [Mass/Vol] 40 mg/dL Normal [facility] Comment on above: Performed By: #### C MP, CBCAD, LIPD #### [facility] [address] [facility] [place] [id number] Cholesterol.total/ Cholesterol in HDL [Mass ratio] 4 {ratio} Normal [facility] Comment on above: Performed By: #### C MP, CBCAD, LIPD #### [facility] [address] [place], [place] [id number] Triglyceride [Mass/Vol] 202 mg/dL High 30-150 [facility] Comment on above: Result Comment: TRIG ATPIII CLASSIFICATIONS TRIG less than 150 mg/dl Normal TRIG 150-199 mg/dl Borderline High TRIG 200-500 mg/dl High TRIG greather than 500 mg/dl Very High Performed By: #### C MP, CBCAD, LIPD #### [facility] [address] [place], [place] [id number] Uric Acidon 09-23-2021 URIC 5.5 mg/dL Normal 2.5-7.0 [facility] Comment on above: Result Comment: Refe rence range change 05/25/2017. Prior reference range F 2.4-5.7mg/dL. M 3.4-7.0 mg/dL. Performed By: #### U NICOLETTE #### [facility] [address] [place], [place] [id number] CNPNon 02-16-2021 CNPN Telephone (RADTSA) -------- BENIGNO CHO ([id number]) 1935 F Date Time Provider Department 02/16/21 Alejo MAHAJAN During your visit today, we recorded the following information about you: Nevin Kaye RN 02/16/2021 12:44 PM Signed MD Nolan Lorenzana [facility] Rad Nurse Pool Screening mammo and result [...] mammogram for malignant neoplasm of breast [Z12.31] Order(s):[facility] SCREENING [[id number]] Order #: [id number] FUTURE Prescriptions as of 02/17/2021 - oxybutynin [...] If no pain relief call 911. - [place]-3 Fatty Acids-Vitamin E (FISH OIL) 1,000 mg [...] Provider Facility Start: 09-24-2023 End: 09-24-2023 ambulatory [facility] Start: 09-24-2023 End: 09-24-2023 ambulatory ANITA DUDLEY Not Available Start: 09-06-2023 End: 09-06-2023 ambulatory DONY MCDONALD Not Available Start: 07-26-2023 End: 07-26-2023 ambulatory [facility] Start: 07-16-2023 End: 07-16-2023 ambulatory ANIAT DUDLEY Not Available Start: 06-18-2023 End: 06-18-2023 ambulatory DONY MCDONALD Not Available Start: 10-31-2022 End: 11-01-[address] ANITA DUDLEY Facility:[facility] Start: 06-06-2022 End: 06-07-[address] ANITA DUDLEY Facility:[facility] Start: 04-21-2022 Encounter for preprocedural cardiovascular examination KARIME BLACK [facility] Start: 04-20-2022 End: 04-21-2022 ambulatory KARIME BLACK Facility:[facility] Start: 04-20-2022 End: 04-21-2022 Encounter for preprocedural cardiovascular examination KARIME BLACK Facility:[facility] Start: 04-20-2022 Encounter for other preprocedural examination DR WANYE JENNINGS [facility] Start: 04-18-2022 End: 04-19-[address] WAYNE JENNINGS Facility:[facility] Start: 04-18-2022 End: 04-19-2022 Encounter for other preprocedural examination DR WAYNE JENNINGS Facility:[facility] Payers Date Payer Category Payer Medicare [id number] 1960 Medicare [id number] 1935 Unknown [id number] 2.16.84 [id number] 1935 Unknown [id number] 2.16.84 [id number] 1935 Unknown [id number] 2.16.84 [id number] 1935 Unknown [id number] 2.16.84 [id number] 1935 Unknown [id number] 2.16.84 [id number] 1935 Unknown [id number] 2.16.84 [id number] 1935 Unknown [id number] 2.16.840 .[id number] 1935 Unknown [id number] 2.16.840 .[id number] Progress note 09-24-2023 Note Date & Type Note Facility 09-24-2023 Note [place] [facility] Zakiya Cho is a 88 y.o. year old female patient being seen for follow up echo and to discuss possible heart cath per Dr. Zuniga. She had CBC, CMP, and lipid panel drawn this morning at [facility]. Patient still denies chest pain, SOB, palpitations, [...] also had a cath in 2009 at [facility] and underwent additional stenting. This was complicated [...] Rfl: calcium ci (more content not included)... [facility] Progress note 07-26-2023 Note Date & Type Note Facility 07-26-2023 Note [place] [facility] Subjective Benigno Cho is a [...] also had a cath in 2009 at [facility] and underwent additional stenting. This was complicated [...] nitroglycerin (Nitrostat) 0.4 (more content not included)... [facility] Progress note 02-16-2021 Note Date & Type Note Facility 02-16-2021 Note HNO ID: [id number] Author: Alejo Mahajan MD Service: ? Author [...] Time Spent: 4 minutes Alejo Mahajan MD [facility] Summary Purpose Family History No [...] section and content) DATE CREATED AUTHOR 08/10/2021 [facility] DATE CREATED AUTHOR AUTHOR'S ORGANIZ ATION 09/24/2021 [facility] dical Specialist DATE CREATED AUTHOR AUTHOR'S ORGANIZ ATION 11/04/2022 [facility] pital DATE CREATED AUTHOR AUTHOR'S ORGANIZ ATION 09/24/2023 [facility] dical Specialists EPIC DATE CREATED [...] BE BASED ON THE PRIMARY CLINICAL RECORDS. [employer] provides no warranty or guarantee of the accuracy or completeness of information in this document.
[2023-10-12] MEDS: REGADENOSON 0.4 MG/5 ML SYRINGE 0.400000000000000022 MG IV (10:00)
== END 2023-10-12 07:14 | disposition home or self-care (01) ==
LOC: NM 07:13
PROVIDERS: PCP Family Medicine; Visit Provider Internal Medicine Interventional Cardiology
DX: I50.21 Acute systolic (congestive) heart failure (principal)
CPT/HCPCS: 78452; 93017; A9500; J2785

== ENCOUNTER 2023-12-31 07:52 | Outpatient (OUT) | payer MEDICARE, SELFPAY ==
--- NOTE | 2023-12-31 08:00 | CA_ITS ---
Patient Name: BENIGNO CHO MR#: [id number] : 1935 Exam Date: 12/31/2023 Ordering Doctor: DR WAYNE CHANDLER M.D. ECHOCARDIOGRAM REPORT PROCEDURE: CA ECHO DOPPLER COMPLETE INDICATIONS: Heart failure with reduced EF COMPARISON: None. DESCRIPTION: COMPLETE ECHOCARDIOGRAM Real-time transthoracic echocardiography with 2D, M-mode, spectral and color flow Doppler performed. QUALITY: Technical quality was good. LEFT VENTRICLE: Normal chamber size. Thickened septal wall. Global left ventricular systolic function is moderately decreased. LV EF: Visual estimation of left ventricular ejection fraction is 35-40% DIASTOLIC: Grade I diastolic dysfunction. ATRIAL SEPTUM: LEFT ATRIUM: Moderate dilatation. RIGHT ATRIUM: Normal chamber size. RIGHT VENTRICLE: Normal chamber size. Normal right ventricular systolic function. TRICUSPID VALVE: Normal mobility and thickness. No stenosis with trivial regurgitation. No evidence of pulmonary hypertension. RVSP 19 mmHg MITRAL VALVE: Mildly thickened with normal mobility. No evidence of mitral valve stenosis. Mild mitral annular calcification. Mild mitral regurgitation. AORTIC VALVE: Normal trileaflet appearance. Mildly calcified aortic valve. Mildly diminished mobility. Mild aortic valve stenosis. No aortic regurgitation. AORTIC ROOT: Normal diameter and appearance. PULMONIC VALVE: Normal thickness and mobility. No stenosis. Trivial regurgitation. PERICARDIUM: No evidence of pericardial effusion. IVC: Collapses with inspirations. Normal size. PLEURA: CONCLUSION: 1. The left ventricle is normal in size and exhibits global hypokinesis. LV systolic function is moderately decreased. LVEF is estimated at 35 to 40%. 2. Normal right ventricular size and systolic function. 3. Moderate left atrial dilatation. 4. Mild aortic valve stenosis. 5. Mild mitral regurgitation. 6. Normal right-sided pressures. Adult Echocardiography Procedure Report Left Ventricle LVEDD (3.7 - 5.6 cm): 4.48 cm LVESD (2.2 - 4.0 cm): 3.85 cm LVIVS thickness (0.6 - 1.2 cm): 1.35 cm LVPW thickness (0.5 - 1.0 cm): 1.03 cm e': 0.07 m/s E - e': 7.20 LVOT Max Gradient: 1.29 mm[Hg] LVOT Area (cm2): 0.57 m/s Peak Velocity (LVOT): 0.57 m/s Mean Velocity (LVOT): 0.36 m/s LVOT Diameter 1.86 cm Left Ventricular Ejection Fraction: 35-40 % Left Atrium LA Volume Index (2D A2C): 37.49 ml/m2 Left Atrium Systolic Dimension: 4.12 cm Mitral Valve MV E to A Ratio: 0.78 Mitral Valve A-Wave Peak Velocity: 0.68 m/s Mitral Valve E-Wave Peak Velocity: 0.53 m/s Right Ventricle RV Internal Diastolic Dimension: 2.47 cm Aorta AO Root Diam: 3.03 cm Ascending Ao Diam: 3.12 cm Aortic Valve AoV Area (Peak Gallo): 1.09 cm2, 1.09 cm2 AoV Area (VTI): 1.27 cm2, 1.26 cm2 Peak Velocity(Antegrade Flow): 1.40 m/s, 1.40 m/s Peak Gradient(Antegrade Flow): 7.89 mm[Hg], 7.89 mm[Hg] Mean Velocity(Antegrade Flow): 1.00 m/s, 1.00 m/s Mean Gradient(Antegrade Flow): 4.53 mm[Hg], 4.59 mm[Hg] Velocity Time Integral: 35.06 cm, 34.50 cm Tricuspid Valve Peak Velocity (Regurgitant Flow): 2.03 m/s, 1.83 m/s, 1.94 m/s Pulmonic Valve Peak Velocity: 0.85 m/s Peak Gradient: 3.35 mm[Hg], 2.44 mm[Hg] Right Atrium Right Atrium Systolic Pressure: 19.70 ml, 19.70 ml Dictated by: Wayne Chandler M.D. on 12/31/2023 at 19:04 Approved by: Wayne Chandler M.D. on 12/31/2023 at 19:11
--- OUTSIDE RECORDS SUMMARY | 2023-12-31 08:06 | XMS_ITS | CCD ---
Author Organization [facility] Care Team Providers Care [employer] Bagger Name Role Phone DICK, DR BLACK Admitting [...] KARIME Admitting Unavailable WAYNE, KARIME Attending Unavailable KARIME BLACK Consulting Unavailable OCTAVIA, DR HOWARD Primary Care Unavailable MOUKAWAYNE KING Attending Unavailable MOUKARBELWAYNE Attending Unavailable MOUKARBELWAYNE Attending Unavailable OCTAVIA, ANITA Hutchins Attending Unavailable DONY MCDONALD Attending Unavailabl e BOHDONY VALADEZ Attending Unavailabl e OCTAVIAANITA Attending Unavailable DONY MCDONALD Attending Unavailabl e OCTAVIA, ANITA Hutchins Referring Unavailable Allergies Allergy Classification Reported Allergen(s) Allergy Type Date of Onset Reaction(s) Facility (1 source) ALPRAZolam Drug Allergy 5 [facility] (1 source) Cephalexin Drug Allergy 5 [facility] (1 source) oxyCODONE Drug Allergy 1 [facility] (1 source) Sulfamethoxazole / Trimethoprim Drug Allergy 5 [facility] (1 source) Sulfonamides (Antibiotic) Drug allergy (disorder) 5 [facility] (1 source) Cephalexin; Translations: [CEPHALEXIN] Drug Allergy [address] [facility] Repository (1 source) Sulfamethoxazole; Translations: [SULFAMETHOXAZOLE] Drug Allergy [address] [facility] Repository (1 source) Sulfamethoxazole / Trimethoprim; Translations: [SULFAMETHOXAZOLE-TR IMETHOPRIM] Drug Allergy [address] [facility] Repository (1 source) Trimethoprim; Translations: [TRIMETHOPRIM] Drug Allergy [address] [facility] Repository Problems Active Problems Problem Classification Problem Date Documented Date Episodic/Chronic Congestive heart failure; nonhypertensive (2 sources) Acute systolic (congestive) heart failure; Translations: [Acute systolic (congestive) heart failure] Onset: 09-24-2023 Chronic Coronary atherosclerosis and other heart disease (4 sources) Atherosclerotic heart disease of [place] coronary artery without angina pectoris; Translations: [Old myocardial infarction] Onset: 07-26-2023 Chronic Essential hypertension (2 sources) Essential (primary) hypertension; [...] HX MALIGNANT NEOPLASM BREAST] Onset: 06-10-2022 Episodic Coronary atherosclerosis and other heart disease (2 sources) Presence of coronary angioplasty implant and graft; Translations: [Presence of coronary angioplasty implant and graft] Onset: 07-26-2023 Episodic Other screening for suspected conditions (not mental disorders or infectious disease) (4 sources) Encounter for screening mammogram for malignant neoplasm of breast; Translations: [ENC SCR MAMMO MALIG NEOPLASM BREAST] Onset: 06-06-2022 Episodic Results Test Name Value Interpretation Reference Range Facility Office Visiton 10-26-2023 Follow-up visit [id number] Dennis Cho 1935 F Date Provider Department Center 10/26/2023 Hector-WAYNE ZUNIGA IVET[facility] No family history on file Level of Service:70453 [place] OFFICE/OUTPATIENT ESTABLISHED MOD MDM 30 MIN Reason for Visit and Comments: Follow-up [169936] - Go over stress test results and labs Normal [facility] Office Visiton 09-24-2023 Follow-up visit [id number] Dennis Cho 1935 Date Provider Department Center 09/24/2023 WAYNE GANT KARLENE [facility] No family history on file Level of Service:37656 [place] OFFICE/OUTPATIENT ESTABLISHED MOD MDM 30 MIN Normal [facility] 36on 09-13-2023 36 Regarding echo from 09/03/2023: MD Nat Mar MA her echocardiogram showed reduced ejection fraction at 30 to 35%. She needs to be seen in the office to adjust medications due to heart failure and to discuss cardiac catheterization. Spoke with patient and scheduled her to see Dr. Zuniga on 09/23. Normal [facility] Office Visiton 07-26-2023 Follow-up visit [id number] Dennis Cho 1935 Provider Department Center 07/26/2023 WAYNE GANT KARLENE Sam [facility] No family history on file Level of Service:00190 [place] OFFICE/OUTPATIENT ESTABLISHED LOW MDM [address] [facility] XR DEXA BONE DENSITYon 10-31 XR [...] by: HERMAN ANTHONY Date: 2022-10-31 09:16 Normal [facility] MG MAMM SCREEN 3D CATHLEEN CADon 06-06-2022 MG MAMM SCREEN 3D CATHLEEN CAD Patient: BENIGNO CHO Exam Date: 06/06/2022 : 1935 Gender:F Ordering : DR ANITA DUDLEY M.D. Admission #: [id number] Family : Order #: [id number] CLICK HERE TO VIEW EXAM RADIOLOGY REPORT [...] Chemotherapy, Tamoxifen Family Cancers None LOCATION: [facility] BREAST COMPOSITION: Heterogeneously dense,which may obscure small [...] Anthony M.D. on 06/07/2022 at 15:08 Normal [facility] PROF CHEM 8 (BAS METB)on Anion gap [Moles/Vol] 12.9 mmol/L Normal [facility] Comment on above: Performed By: #### B MP #### [facility] [address] [address] [address] Justin Sidhu Calcium [Mass/Vol] 8.8 mg/dL Normal 8.5-10.1 [facility] Comment on above: Performed By: #### B MP #### [facility] [address] [address] [address] Justin Sidhu Chloride [Moles/Vol] 99 mmol/L Normal 98-107 [facility] Comment on above: Performed By: #### B MP #### [facility] [address] [address] [address] Justin Sidhu CO2 [Moles/Vol] 25.9 mmol/L Normal 21.0-32.0 [facility] Comment on above: Performed By: #### B MP #### [facility] [address] [address] [address] Justin Sidhu Creatinine [Mass/Vol] 0.75 mg/dL Normal 0.55-1.02 [facility] Comment on above: Performed By: #### B MP #### [facility] [address] [place] [address] Dr. Justin Sidhu EGFR-AF CITIZEN [place] >60 Normal >=60 [facility] Comment on above: Performed By: #### B MP #### [facility] [address] [address] [address] Justin Sidhu EGFR-NON AF CITIZEN OF [place] >60 Normal >=60 [facility] Comment on above: Performed By: #### B MP #### [facility] [address] [address] [address] Justin Sidhu Glucose [Mass/Vol] 123 mg/dL Critically high 74-106 [facility] Comment on above: Performed By: #### B MP #### [facility] [address] [address] [address] Justin Sidhu Potassium [Moles/Vol] 4.8 mmol/L Normal 3.5-5.1 [facility] Comment on above: Result Comment: SPEC IMEN SLIGHTLY HEMOLIZED Performed By: #### B MP #### [facility] [address] [place] [address] Dr. Justin Sidhu Sodium [Moles/Vol] 133 mmol/L Critically low 136-145 [facility] Comment on above: Performed By: #### B MP #### [facility] [address] [address] [address] Justin Sidhu Urea nitrogen [Mass/Vol] 19.0 mg/dL Critically high 7.0-18.0 [facility] Comment on above: Performed By: #### B MP #### [facility] [address] [place] [address] [address] [address] Justin Sidhu Urea nitrogen/Creatinin e [Mass ratio] 25.3 mg/mg Normal [facility] Comment on above: Performed By: #### B MP #### [facility] [address] [place], [place] [address] Dr. Justin Sidhu Complete Blood Count with Au to Diffon 09-23-2021 Basophils (Bld) [#/Vol] 0.04 10*3/uL Normal 0.00-0.20 [facility] Comment on above: Performed By: #### C MP, CBCAD, LIPD #### [facility] [address] [place], [place] [id number] Basophils/100 WBC (Bld) 0.2 % Normal [facility] Comment on above: Performed By: #### C MP, CBCAD, LIPD #### [facility] [address], [place] [id number] Eosinophils (Bld) [#/Vol] 0.10 10*3/uL Normal 0.02-0.50 [facility] Comment on above: Performed By: #### C MP, CBCAD, LIPD #### [facility] [address], [place] [id number] Eosinophils/100 WBC (Bld) 0.6 % Normal [facility] Comment on above: Performed By: #### C MP, CBCAD, LIPD #### [facility] [address], [place] [id number] Erythrocyte distribution width (RBC) [Ratio] 13.4 % Normal 11.0-15.0 [facility] Comment on above: Performed By: #### C MP, CBCAD, LIPD #### [facility] [address], [place] [id number] Hematocrit (Bld) [Volume fraction] 37.9 % Normal 35.0-47.0 [facility] Comment on above: Performed By: #### C MP, CBCAD, LIPD #### [facility] [address], [place] [id number] Hemoglobin (Bld) [Mass/Vol] 12.8 g/dL Normal 11.6-15.5 [facility] Comment on above: Performed By: #### C MP, CBCAD, LIPD #### [facility] [address], [place] [id number] Lymphocytes (Bld) [#/Vol] 1.6 10*3/uL Normal 0.9-3.9 [facility] Comment on above: Performed By: #### C MP, CBCAD, LIPD #### [facility] [address], [place] [id number] Lymphocytes/100 WBC (Bld) 9.6 % Normal [facility] Comment on above: Performed By: #### C MP, CBCAD, LIPD #### [facility] [address], [place] [id number] MCH (RBC) [Entitic mass] 33.2 pg High 27.0-33.0 [facility] Comment on above: Performed By: #### C MP, CBCAD, LIPD #### [facility] [address], [place] [id number] MCHC (RBC) [Mass/Vol] 33.8 g/dL Normal 32.0-36.0 [facility] Comment on above: Performed By: #### C MP, CBCAD, LIPD #### [facility] [address], [place] [id number] MCV (RBC) [Entitic vol] 98 fL Normal 80-100 [facility] Comment on above: Performed By: #### C MP, CBCAD, LIPD #### [facility] [address], [place] [id number] Monocytes (Bld) [#/Vol] 1.0 10*3/uL High 0.2-0.9 [facility] Comment on above: Performed By: #### C MP, CBCAD, LIPD #### [facility] [address], [place] [id number] Monocytes/100 WBC (Bld) 5.9 % Normal [facility] Comment on above: Performed By: #### C MP, CBCAD, LIPD #### [facility] [address], [place] [id number] Neutrophils (Bld) [#/Vol] 13.5 10*3/uL High 1.5-7.8 [facility] Comment on above: Performed By: #### C MP, CBCAD, LIPD #### [facility] [address], [place] [id number] Neutrophils/100 WBC (Bld) 83.0 % Normal [facility] Comment on above: Performed By: #### C MP, CBCAD, LIPD #### [facility] [address], [place] [id number] Platelet mean volume (Bld) [Entitic vol] 10.60 fL Normal 7.50-12.50 [facility] Comment on above: Performed By: #### C MP, CBCAD, LIPD #### [facility] [address], [place] [id number] Platelets (Bld) [#/Vol] 271 10*3/uL Normal 140-400 [facility] Comment on above: Performed By: #### C MP, CBCAD, LIPD #### [facility] [address], [place] [id number] RBC (Bld) [#/Vol] 3.85 10*6/uL Low 3.90-5.[address] [facility] Comment on above: Performed By: #### C MP, CBCAD, LIPD #### [facility] [address], [place] [id number] RDW-SD 48.1 fL Normal 37.0-50.0 [facility] Comment on above: Performed By: #### C MP, CBCAD, LIPD #### [facility] [address], [place] [id number] WBC (Bld) [#/Vol] 16.3 10*3/uL High 3.8-11.[address] [facility] Comment on above: Performed By: #### C MP, CBCAD, LIPD #### [facility] [address], [place] [id number] Comprehensive Metabolic Pane litzy 09-23-2021 Albumin [Mass/Vol] 4.0 g/dL Normal 3.6-5.1 [facility] Comment on above: Performed By: #### C PORTILLO, CBCAD, LIPD #### [facility] [address], [place] [id number] Albumin/Globulin [Mass ratio] 2.4 {ratio} Normal 1.0-2.5 [facility] Comment on above: Performed By: #### C PORTILLO, CBCAD, LIPD #### [facility] [address], [place] [id number] ALP [Catalytic activity/Vol] 67 U/L Normal 35-119 [facility] Comment on above: Performed By: #### C PORTILLO, CBCAD, LIPD #### [facility] [address], [place] [id number] ALT [Catalytic activity/Vol] 12 U/L Normal 6-33 [facility] Comment on above: Result Comment: 06/08 Female reference range changed. Performed By: #### C PORTILLO, CBCAD, LIPD #### [facility] [address], [place] [id number] Anion gap [Moles/Vol] 18 mmol/L Normal 12-20 [facility] Comment on above: Result Comment: Effe ctive 07/14/2019 reference range changed. Performed By: #### C PORTILLO, CBCAD, LIPD #### [facility] [address], [place] [id number] AST [Catalytic activity/Vol] 17 U/L Normal 9-34 [facility] Comment on above: Performed By: #### C MP, CBCAD, LIPD #### [facility] [address], [place] [id number] Bilirubin [Mass/Vol] 0.52 mg/dL Normal 0.30-1.20 [facility] Comment on above: Performed By: #### C MP, CBCAD, LIPD #### [facility] [address] [facility] [place] [id number] BUN/CREA 30 Ratio High 6-22 [facility] Comment on above: Performed By: #### C MP, CBCAD, LIPD #### [facility] [address], [place] [id number] Calcium [Mass/Vol] 8.9 mg/dL Normal 8.6-10.2 [facility] Comment on above: Performed By: #### C PORTILLO CBCCALLUM, LIPD #### [facility] [address], [place] [id number] Chloride [Moles/Vol] 96 mmol/L Low 98-107 [facility] Comment on above: Performed By: #### C PORTILLO CBCCALLUM, LIPD #### [facility] [address], [place] [id number] CO2 [Moles/Vol] 29 mmol/L Normal 20-31 [facility] Comment on above: Performed By: #### C PORTILLO CBCCALLUM, LIPD #### [facility] [address], [place] [id number] Creatinine [Mass/Vol] 0.8 mg/dL Normal 0.6-1.4 [facility] Comment on above: Performed By: #### C PORTILLO CBCCALLUM, LIPD #### [facility] [address], [place] [id number] eGFRAA 87 mL/min/1.73m2 Normal >60 [facility] Comment on above: Performed By: #### C PORTILLO CBCCALLUM, LIPD #### [facility] [address], [place] [id number] eGFRNAA 72 mL/min/1.73m2 Normal >60 [facility] Comment on above: Performed By: #### C PORTILLO CBCCALLUM, LIPD #### [facility] [address], [place] [id number] Globulin (S) [Mass/Vol] 1.7 g/dL Low 1.9-3.7 [facility] Comment on above: Performed By: #### C PORTILLO CBCCALLUM, LIPD #### [facility] [address], [place] [id number] Glucose [Mass/Vol] 186 mg/dL High 65-99 Rohit [facility] Comment on above: Result Comment: For FASTING Glucose --- ADA reference ranges: Normal 65-99 mg/dl Prediabetes 100-125 Diabetes >/= 126 Performed By: #### C MP, CBCAD, LIPD #### [facility] [address] [facility] [place] [id number] Potassium [Moles/Vol] 3.8 mmol/L Normal 3.5-5.5 [facility] Comment on above: Performed By: #### C MP, CBCAD, LIPD #### [facility] [address] [facility] [place] [id number] Protein [Mass/Vol] 5.7 g/dL Low 6.1-8.1 [facility] Comment on above: Performed By: #### C MP, CBCAD, LIPD #### [facility] [address] [facility] [place] [id number] Sodium [Moles/Vol] 138 mmol/L Normal 135-146 [facility] Comment on above: Performed By: #### C MP, CBCAD, LIPD #### [facility] [address], [place] [id number] Urea nitrogen [Mass/Vol] 23 mg/dL Normal 7-25 [facility] Comment on above: Performed By: #### C MP, CBCAD, LIPD #### [facility] [address], [place] [id number] Lipid Panelon 09-23-2021 Cholesterol [Mass/Vol] 155 mg/dL Normal 125-200 [facility] Comment on above: Result Comment: Low risk < 200mg/dL Borderline risk 201-239 mg/dl High risk > or equal to 240 Performed By: #### C MP, CBCAD, LIPD #### [facility] [address], [place] [id number] Cholesterol in HDL [Mass/Vol] 44 mg/dL Normal >40 [facility] Comment on above: Result Comment: High Cardiovascular Risk HDL <40 mg/dL Low Cardiovascular Risk HDL > or equal to 60 mg/dl Performed By: #### C MP, CBCAD, LIPD #### [facility] [address] [facility] [place] [id number] Cholesterol in LDL [Mass/Vol] 71 mg/dL Normal [facility] Comment on above: Result Comment: LDL ATP III CLASSIFICATION LDL less than 100 mg/dl Optimal LDL 100-129 mg/dl Near or above optimal LDL 130-159 Borderline high LDL 160-189 High LDL greater than 189 mg/dl Very High Performed By: #### C PORTILLO, RAHEL, LIPD #### [facility] [address] [place], [place] [id number] Cholesterol in VLDL [Mass/Vol] 40 mg/dL Normal [facility] Comment on above: Performed By: #### C PORTILLO, CBCCALLUM, LIPD #### [facility] [address], [place] [id number] Cholesterol.total/ Cholesterol in HDL [Mass ratio] 4 {ratio} Normal [facility] Comment on above: Performed By: #### C PORTILLO, RAHEL, LIPD #### [facility] [address], [place] [id number] Triglyceride [Mass/Vol] 202 mg/dL High 30-150 [facility] Comment on above: Result Comment: TRIG ATPIII CLASSIFICATIONS TRIG less than 150 mg/dl Normal TRIG 150-199 mg/dl Borderline High TRIG 200-500 mg/dl High TRIG greather than 500 mg/dl Very High Performed By: #### C PORTILLO, RAHEL, LIPD #### [facility] [address] [place], [place] [id number] Uric Acidon 09-23-2021 URIC 5.5 mg/dL Normal 2.5-7.0 [facility] Comment on above: Result Comment: Refe rence range change 05/25/2017. Prior reference range F 2.4-5.7mg/dL. M 3.4-7.0 mg/dL. Performed By: #### U NICOLETTE #### [facility] [address] [place], [place] [id number] CNPKera 02-16-2021 FABIOLAN Telephone ([facility]) -------- BENIGNO CHO ([id number]) 1935 F Date Time Provider Department 02/16/21 Alejo MAHAJAN During your visit today, we recorded the following information about you: Nevin Kaye RN 02/16/2021 12:44 PM Signed MD Nolan Lorenzana [facility] [...] malignant neoplasm of breast [Z12.31] Order(s):SETH SCREENING [[id number]] Order #: [id number] FUTURE Prescriptions as of 02/17/2021 - oxybutynin [...] If no pain relief call 911. - Premier-3 Fatty Acids-Vitamin E (FISH OIL) 1,000 mg [...] Encounter Status:Closed by NEVIN KAYE on 02/17/21 [facility] Encounters Encounter Date Encounter Type Care Provider Facility Start: 11-15-2023 End: 11-15-2023 ambulatory DONY MCDONALD Not Available Start: 10-26-2023 End: 10-26-2023 ambulatory [facility] Start: 09-24-2023 End: 09-24-2023 ambulatory [facility] Start: 09-24-2023 End: 09-24-2023 ambulatory ANITA DUDLEY Not Available Start: 09-06-2023 End: 09-06-2023 ambulatory DONY MCDONALD Not Available Start: 07-26-2023 End: 07-26-2023 ambulatory [facility] Start: 07-16-2023 End: 07-16-2023 ambulatory ANITA DUDLEY Not Available Start: 06-18-2023 End: 06-18-2023 ambulatory DONY MCDONALD Not Available Start: 10-31-2022 End: 11-01-[address] ANITA DUDLEY Facility:[facility] Start: 06-06-2022 End: 06-07-[address] ANITA DUDLEY Facility:[facility] Start: 04-21-2022 Encounter for preprocedural cardiovascular examination KARIME BLACK [facility] Start: 04-20-2022 End: 04-21-2022 ambulatory KARIME BLACK Facility:[facility] Start: 04-20-2022 End: 04-21-2022 Encounter for preprocedural cardiovascular examination KARIME BLACK Facility:[facility] Start: 04-20-2022 Encounter for other preprocedural examination DR WAYNE JENNINGS [facility] Start: 04-18-2022 End: 04-19-[address] WAYNE JENNINGS Facility:[facility] Start: 04-18-2022 End: 04-19-2022 Encounter for other preprocedural examination DR WAYNE JENNINGS Facility:[facility] Payers Date Payer Category Payer Medicare [id number] 1960 Medicare [id number] 1935 Unknown [id number] 2.16.84 [id number] 1935 Unknown [id number] 2.16.84 [id number] 1935 Unknown [id number] 2.16.84 [id number] 1935 Unknown [id number] 2.16.84 [id number] 1935 Unknown [id number] 2.16.84 [id number] 1935 Unknown [id number] 2.16.84 [id number] 1935 Unknown [id number] 2.16.84 [id number] 1935 Unknown [id number] 2.16.840 .[id number] 1935 Unknown [id number] 2.16.840 .[id number] Progress note 10-26-2023 Note Date & Type Note Facility 10-26-2023 Note [facility] Zakiya Cho is a 88 y.o. year old female patient being seen for follow up. Patient Active Problem List Diagnosis Chest discomfort Coronary arteriosclerosis Decreased estrogen level Diabetic renal disease (CMS/HCC) Female stress incontinence Gout, unspecified H/O Malignant melanoma Hypertension due to endocrine disorder Hypertensive disorder Hypertriglyceridemia Lipoprotein deficiency disorder Malignant neoplasm of female breast (CMS/HCC) Localized, primary osteoarthritis of hand Onychomycosis due to dermatophyte Osteoarthrosis Osteopenia of left hip PVD (peripheral vascular disease) ([facility]/HCC) Abnormal CT of the abdomen Abnormality of [...] seen in follow up. She is an 88 yo lady with history of CAD as follows: She had acute inferior CO in 2004 treated by PCI to the RCA. She then had additional stenting of the RCA in July 2005. Subsequently had Cath 2005 with additional PCI ALO to RCA and LAD. She also had a cath in 2009 at [facility] and underwent additional stenting. This was [...] peripheral vascular disease. Her EGFR was 57. At last visit 09/24/2023 and due to acute systolic heart failure and drop in ejection fraction compared to prior normal ejection fraction for many years ago I optimize medical therapy, I stopped atenolol and added metoprolol succinate 25 mg once daily, added Jardiance 10 mg daily and spironolactone 12.5 mg once daily. I discussed with her and her daughter the option of proceeding with invasive coronary angiography versus stress testing to assess for amount of ischemia. She preferred the route of stress testing. A Lexiscan stress test performed on 10/12/2023 showed no evidence of ischemia and an ejection fraction at 41%. On 10/03/2023 she was seen in the emergency room because of hypotension. It appears that she was dehydrated. Her spironolactone was stopped. She continues to be on the rest of the medicine. Today she reports that she has been well with no chest pain at rest or on exertion. She has no dyspnea on exertion. She has no claudication. She has no dizziness. She has no complaints. I reviewed her blood pressure recordings from home and they show good blood pressure recently. Review of Systems Musculoskeletal: Positive for arthritis, back pain and joint pain. All other systems reviewed and are negative. Objective Visit Vitals BP 124/60 (BP Location: Right arm, Patient Position: Sitting, BP Cuff Size: Adult) Pulse 62 Resp 11 Ht 1.499 m (4' 11 ) Wt 62.1 kg (137 lb) SpO2 96% BMI 27.67 kg/m??? Smoking Status Never BSA 1.61 m??? Physical Exam Constitutional: Appearance: She is [...] soft. Tenderness: There is no abdominal tenderness. (more content not included)... [facility] Progress note 09-24-2023 Note Date & Type Note Facility 09-24-2023 Note [facility] Subjective Benigno Cho is a 88 y.o. year old female patient being seen for follow up echo and to discuss possible heart cath per Dr. Zuniga. She had CBC, CMP, and lipid panel drawn this morning at [facility]. Patient still denies chest pain, SOB, palpitations, [...] CAD as follows: She had acute inferior CO in 2004 treated by PCI to the RCA. She then had additional stenting of the RCA in July 2005. Subsequently had Cath 2005 with additional PCI ALO to RCA and LAD. She also had a cath in 2009 at [facility] and underwent additional stenting. This was [...] Rfl: calcium ci (more content not included)... [facility] Progress note 07-26-2023 Note Date & Type Note Facility 07-26-2023 Note [facility] Subjective Benigno Cho is a 87 y.o. [...] CAD as follows: She had acute inferior CO in 2004 treated by PCI to the RCA. She then had additional stenting of the RCA in July 2005. Subsequently had Cath 2005 with additional PCI ALO to RCA and LAD. She also had a cath in 2009 at [facility] and underwent additional stenting. This was [...] nitroglycerin (Nitrostat) 0.4 (more content not included)... [facility] Progress note 02-16-2021 Note Date & Type Note Facility 02-16-2021 Note HNO ID: [id number] Author: Alejo Mahajan MD Service: ? Author [...] Time Spent: 4 minutes Alejo Mahajan MD [facility] Summary Purpose Family History No Family History Records FoundNo Family History Records FoundNo Family History Records FoundNo Family History Records FoundNo Family History Records Found Advance Directives No Advanced Directives Records FoundNo Advanced Directives Records FoundNo Advanced Directives Records FoundNo Advanced Directives Records FoundNo Advanced Directives Records Found Additional Source Comments INFORMATION SOURCE (unrecogn ized section and content) DATE CREATED AUTHOR 08/10/2021 [facility] DATE CREATED AUTHOR AUTHOR'S ORGANIZ ATION 09/24/2021 [facility] DATE CREATED AUTHOR AUTHOR'S ORGANIZ ATION 11/04/2022 [facility] DATE CREATED AUTHOR AUTHOR'S ORGANIZ ATION 10/27/2023 [facility] DATE CREATED AUTHOR AUTHOR'S ORGANIZ ATION 11/17/2023 [facility] FOR RECORDS PERTAINING TO PATIENTS WHO ARE [...] BE BASED ON THE PRIMARY CLINICAL RECORDS. [employer] [facility]. provides no warranty or guarantee of the accuracy or completeness of information in this document.
== END 2023-12-31 07:53 | disposition home or self-care (01) ==
LOC: CARD 07:54
PROVIDERS: PCP Family Medicine; Visit Provider Internal Medicine Interventional Cardiology
DX: I50.21 Acute systolic (congestive) heart failure (principal)
CPT/HCPCS: 93306; 93356

== ENCOUNTER 2024-02-12 08:31 | Outpatient (OUT) | payer MEDICARE, SELFPAY ==
--- OUTSIDE RECORDS SUMMARY | 2024-02-12 08:45 | XMS_ITS | CCD ---
Author Organization [facility] Care Team Providers Care Wheel Lacer And Truer Name Role Phone DICK, DR BLACK Admitting [...] Unavailable ZIEBER, DR HERMAN Lira Consulting Unavailable KARIME BLACK Admitting Unavailable WAYNE, KARIME Attending Unavailable WAYNE, KARIME Consulting Unavailable OCTAVIA, DR HOWARD Primary Care Unavailable MOUKAWAYNE KING Attending Unavailable MOUKARBELWAYNE Attending Unavailable MOUKARBELWAYNE Attending Unavailable MOUKARBELWAYNE Attending Unavailable OCTAVIA, ANITA Hutchins Attending Unavailable DONY MCDONALD Attending Unavailabl e OCTAVIA, ANITA Hutchins Attending Unavailable DONY MCDONALD Attending Unavailabl e OCTAVIA, ANITA Hutchins Referring Unavailable OCTAVIA, ANITA Hutchins Attending Unavailable DONY MCDONALD Attending Unavailabl e OCTAVIA, ANITA Hutchins Referring Unavailable BOHDONY VALADEZ Attending Unavailabl e Allergies Allergy Classification Reported Allergen(s) Allergy Type Date of Onset Reaction(s) Facility (1 source) ALPRAZolam Drug Allergy 5 [facility] Repository (1 source) Cephalexin Drug Allergy 5 [facility] Repository (1 source) oxyCODONE Drug Allergy 1 [facility] Repository (1 source) Sulfamethoxazole / Trimethoprim Drug Allergy 5 [facility] Repository (1 source) Sulfonamides (Antibiotic) Drug allergy (disorder) 5 [facility] Repository (1 source) Cephalexin; Translations: [CEPHALEXIN] Drug Allergy 1 [facility] Repository (1 source) Sulfamethoxazole; Translations: [SULFAMETHOXAZOLE] Drug Allergy 1 [facility] Repository (1 source) Sulfamethoxazole / Trimethoprim; Translations: [SULFAMETHOXAZOLE-TR IMETHOPRIM] Drug Allergy 2 [facility] Repository (1 source) Trimethoprim; Translations: [TRIMETHOPRIM] Drug Allergy 1 [facility] Repository Medications Current Medications Medication Drug Class(es) Dates Sig (Normalized) Sig (Original) benazepril hydrochloride 20 mg oral tablet (1 source) Angiotensin Converting Enzyme Inhibitor Start: 01-02-2024 Benazepril Active MG PO January 02, 2024 12:00am Cyclosporine (1 source) Calcineurin Inhibitor Immunosuppressant Start: 01-02-2024 Cyclosporine Active DROPS OPHTHALMIC January 02, 2024 12:00am empagliflozin 10 mg oral tablet (1 source) Sodium-Glucose Cotransporter 2 Inhibitor Start: 01-02-2024 Empagliflozin (Jardiance) 10 mg tablet Active MG PO January 02, 2024 12:00am Metoprolol (1 source) beta-Adrenergic Amanda Start: 01-02-2024 Metoprolol Succinate Active MG PO January 02, 2024 12:00am oxybutynin chloride 5 mg oral tablet (1 source) Cholinergic Muscarinic Antagonist Start: 01-02-2024 Oxybutynin Chloride Active MG PO January 02, 2024 12:00am predniSONE 20 mg oral tablet (1 source) Start: 01-02-2024 take 20 mg by mouth once daily Prednisone Active 20 MG PO Daily 5 5 January 02, 2024 12:00am simvastatin 40 mg oral tablet (1 source) HMG-CoA Reductase Inhibitor Start: 01-02-2024 Simvastatin Active MG PO January 02, 2024 12:00am SITagliptin 100 mg oral tablet (1 source) Dipeptidyl Peptidase 4 Inhibitor Start: 01-02-2024 Sitagliptin Phosphate (Januvia) 100 mg tablet Active MG PO January 02, 2024 12:00am Problems Active Problems Problem Classification Problem Date Documented Date Episodic/Chronic Allergic reactions (2 sources) Contact dermatitis due to poison dylon; Translations: [Allergic contact dermatitis due to plants, except food] 01-02-2024 Episodic Congestive heart failure; nonhypertensive (4 sources) Chronic systolic (congestive) heart failure; Translations: [Acute systolic (congestive) heart failure] Onset: 10-26-2023 Chronic Coronary atherosclerosis and other heart disease (4 sources) Atherosclerotic heart disease of andreafski coronary artery without angina pectoris; Translations: [Old myocardial infarction] Onset: 10-26-2023 Chronic Essential hypertension (2 sources) Essential (primary) [...] of coronary angioplasty implant and graft] Onset: 10-26-2023 Episodic Other screening for suspected conditions (not mental disorders or infectious disease) (4 sources) Encounter for screening mammogram for malignant neoplasm of breast; Translations: [ENC SCR MAMMO MALIG NEOPLASM BREAST] Onset: 06-06-2022 Episodic Results Test Name Value Interpretation Reference Range Facility Office Visiton 01-28-2024 Follow-up visit [id number] Dennis Cho 1935 F Date Provider Department Center 01/28/2024 WAYNE GANT [facility] Family History Problem Relation Age of Onset Coronary artery disease Mother Coronary artery disease Brother Family Status - Relation Status Age at Mother Brother Level of Service:46648 NE OFFICE/OUTPATIENT ESTABLISHED MOD MDM 30 MIN Normal [facility] Office Visiton 10-26-2023 Follow-up visit [id number] Dennis Cho 1935 F Date Provider Department Center 10/26/2023 WAYNE GANT KARLENE [facility] No family history on file Level of Service:30472 NE OFFICE/OUTPATIENT ESTABLISHED MOD MDM 30 MIN Reason for Visit and Comments: Follow-up [479641] - Go over stress test results and labs Normal [facility] Office Visiton 09-24-2023 Follow-up visit [id number] Dennis Cho Salud 1935 F Date Provider Department Center 09/24/2023 WAYNE GANT KARLENE [facility] No family history on file Level of Service:17998 NE OFFICE/OUTPATIENT ESTABLISHED MOD MDM 30 MIN Normal [facility] 36on 09-13-2023 36 Regarding echo from 09/03/2023: MD Nat Mar MA her echocardiogram showed reduced ejection fraction at 30 to 35%. She needs to be seen in the office to adjust medications due to heart failure and to discuss cardiac catheterization. Spoke with patient and scheduled her to see Dr. Chandler on 09/23. Normal [facility] Office Visiton 07-26-2023 Follow-up visit [id number] Dennis Cho perry Brannon 1935 Date Provider Department Center 07/26/2023 WAYNE GANT KARLENE [facility] No family history on file Level of Service:83536 NE OFFICE/OUTPATIENT ESTABLISHED LOW MDM 20 MIN Normal [facility] XR DEXA BONE DENSITYon 10-31 XR [...] HERMAN ANTHONY Date: 2022-10-31 09:16 Normal [facility] MG MAMM SCREEN 3D CATHLEEN CADon 06-06-2022 MG MAMM SCREEN 3D CATHLEEN CAD Patient: BENIGNO CHO Exam Date: 06/06/2022 : 1935 Gender:F Ordering : DR ANITA DUDLEY M.D. Admission #: [id number] Family : Order #: [id number] CLICK HERE TO VIEW EXAM RADIOLOGY REPORT [...] Chemotherapy, Tamoxifen Family Cancers None LOCATION: [facility] BREAST COMPOSITION: Heterogeneously dense,which may obscure [...] Anthony M.D. on 06/07/2022 at 15:08 Normal [facility] PROF CHEM 8 (BAS METB)on Anion gap [Moles/Vol] 12.9 mmol/L Normal [facility] Comment on above: Performed By: #### B MP #### [facility] [address] [address] [address] Justin Sidhu Calcium [Mass/Vol] 8.8 mg/dL Normal 8.5-10.1 [facility] Comment on above: Performed By: #### B MP #### [facility] [address] [address] [address] Justin Sidhu Chloride [Moles/Vol] 99 mmol/L Normal 98-107 [facility] Comment on above: Performed By: #### B MP #### [facility] [address] [address] [address] Justin Sidhu CO2 [Moles/Vol] 25.9 mmol/L Normal 21.0-32.0 [facility] Comment on above: Performed By: #### B MP #### [facility] [address] [address] [address] Justin Sidhu Creatinine [Mass/Vol] 0.75 mg/dL Normal 0.55-1.02 [facility] Comment on above: Performed By: #### B MP #### [facility] [address] [address] [address] Justin Sidhu EGFR-AF ETHIOPIAN >60 Normal >=60 [facility] [place] Comment on above: Performed By: #### B MP #### [facility] [address] [address] [address] Justin Sidhu EGFR-NON AF ETHIOPIAN >60 Normal >=60 [facility] Comment on above: Performed By: #### B MP #### [facility] [address] [address] [address] Justin Sidhu Glucose [Mass/Vol] 123 mg/dL Critically high 74-106 [facility] Comment on above: Performed By: #### B MP #### [facility] [address] [address] [address] Justin Sidhu Potassium [Moles/Vol] 4.8 mmol/L Normal 3.5-5.1 [facility] Comment on above: Result Comment: SPEC IMEN SLIGHTLY HEMOLIZED Performed By: #### B MP #### [facility] [address] [place] [address] Dr. Justin Sidhu Sodium [Moles/Vol] 133 mmol/L Critically low 136-145 [facility] Comment on above: Performed By: #### B MP #### [facility] [address] [place], [place] [address] Dr. Justin Sidhu Urea nitrogen [Mass/Vol] 19.0 mg/dL Critically high 7.0-18.0 [facility] Comment on above: Performed By: #### B MP #### [facility] [address] [place] [address] [address] Justin Sidhu Urea nitrogen/Creatinin e [Mass ratio] 25.3 mg/mg Normal [facility] Comment on above: Performed By: #### B MP #### [facility] [address] [address] [address] Justin Sidhu Complete Blood Count with Au to Diffon 09-23-2021 Basophils (Bld) [#/Vol] 0.04 10*3/uL Normal 0.00-0.20 [facility] Specialist Comment on above: Performed By: #### C MP, CBCAD, LIPD #### [facility] [address], [place] [id number] Basophils/100 WBC (Bld) 0.2 % Normal [facility] Special[facility] Comment on above: Performed By: #### C MP, CBCAD, LIPD #### [facility] [address], [place] [id number] Eosinophils (Bld) [#/Vol] 0.10 10*3/uL Normal 0.02-0.50 [facility] Special[facility] Comment on above: Performed By: #### C MP, CBCAD, LIPD #### [facility] [address], [place] [id number] Eosinophils/100 WBC (Bld) 0.6 % Normal [facility] [employer] Comment on above: Performed By: #### C MP, CBCAD, LIPD #### [facility] [address] [id number] Erythrocyte distribution width (RBC) [Ratio] 13.4 % Normal 11.0-15.0 [facility] Comment on above: Performed By: #### C MP, CBCAD, LIPD #### [facility] [address] [place], [place] [id number] Hematocrit (Bld) [Volume fraction] 37.9 % Normal 35.0-47.0 [facility] [place] [employer] Comment on above: Performed By: #### C MP, CBCAD, LIPD #### [facility] [address] [place], [place] [id number] Hemoglobin (Bld) [Mass/Vol] 12.8 g/dL Normal 11.6-15.5 [facility] [employer] Comment on above: Performed By: #### C MP, CBCAD, LIPD #### [facility] [address] [place], [place] [id number] Lymphocytes (Bld) [#/Vol] 1.6 10*3/uL Normal 0.9-3.9 [facility] [employer] Comment on above: Performed By: #### C MP, CBCAD, LIPD #### [facility] [address] [place], [place] [id number] Lymphocytes/100 WBC (Bld) 9.6 % Normal [facility] [employer] Comment on above: Performed By: #### C MP, CBCAD, LIPD #### [facility] [address] [place], [place] [id number] MCH (RBC) [Entitic mass] 33.2 pg High 27.0-33.0 [facility] [employer] Comment on above: Performed By: #### C MP, CBCAD, LIPD #### [facility] [address] [place], [place] [id number] MCHC (RBC) [Mass/Vol] 33.8 g/dL Normal 32.0-36.0 [facility] [employer] Comment on above: Performed By: #### C MP, CBCAD, LIPD #### [facility] [address] [place], [place] [id number] MCV (RBC) [Entitic vol] 98 fL Normal 80-100 [facility] [employer] Comment on above: Performed By: #### C MP, CBCAD, LIPD #### [facility] [address] [place], [place] [id number] Monocytes (Bld) [#/Vol] 1.0 10*3/uL High 0.2-0.9 [facility] [employer] Comment on above: Performed By: #### C MP, CBCAD, LIPD #### [facility] [address] [place], [place] [id number] Monocytes/100 WBC (Bld) 5.9 % Normal [facility] Specialist Comment on above: Performed By: #### C MP, CBCAD, LIPD #### [facility] [address] [place], [place] [id number] Neutrophils (Bld) [#/Vol] 13.5 10*3/uL High 1.5-7.8 [facility] Comment on above: Performed By: #### C MP, CBCAD, LIPD #### [facility] [address] [place], [place] [id number] Neutrophils/100 WBC (Bld) 83.0 % Normal [facility] Specialist Comment on above: Performed By: #### C MP, CBCAD, LIPD #### [facility] [address] [place], [place] [id number] Platelet mean volume (Bld) [Entitic vol] 10.60 fL Normal 7.50-12.50 [facility] Special[facility] Comment on above: Performed By: #### C MP, CBCAD, LIPD #### [facility] [address] [place], [place] [id number] Platelets (Bld) [#/Vol] 271 10*3/uL Normal 140-400 [facility] Specialist Comment on above: Performed By: #### C MP, CBCAD, LIPD #### [facility] [address] [place], [place] [id number] RBC (Bld) [#/Vol] 3.85 10*6/uL Low 3.90-5.20 [facility] Comment on above: Performed By: #### C MP, CBCAD, LIPD #### [facility] [address] [place], [place] [id number] RDW-SD 48.1 fL Normal 37.0-50.0 [facility] Specialist Comment on above: Performed By: #### C MP, CBCAD, LIPD #### [facility] [address] [place], [place] [id number] WBC (Bld) [#/Vol] 16.3 10*3/uL High 3.8-11.0 [facility] Comment on above: Performed By: #### C MP, CBCAD, LIPD #### [facility] [address] [place], [place] [id number] Comprehensive Metabolic Pane litzy 09-23-2021 Albumin [Mass/Vol] 4.0 g/dL Normal 3.6-5.1 [facility] Comment on above: Performed By: #### C MP, CBCAD, LIPD #### [facility] [address] [place], [place] [id number] Albumin/Globulin [Mass ratio] 2.4 {ratio} Normal 1.0-2.5 [facility] Comment on above: Performed By: #### C MP, CBCAD, LIPD #### [facility] [address] [place], [place] [id number] ALP [Catalytic activity/Vol] 67 U/L Normal 35-119 [facility] Comment on above: Performed By: #### C MP, CBCAD, LIPD #### [facility] [address] [place], [place] [id number] ALT [Catalytic activity/Vol] 12 U/L Normal 6-33 [facility] Comment on above: Result Comment: 06/08 Female reference range changed. Performed By: #### C MP, CBCAD, LIPD #### [facility] [address] [place], [place] [id number] Anion gap [Moles/Vol] 18 mmol/L Normal 12-20 [facility] Comment on above: Result Comment: Effe ctive 07/14/2019 reference range changed. Performed By: #### C MP, CBCAD, LIPD #### [facility] [address] [place], [place] [id number] AST [Catalytic activity/Vol] 17 U/L Normal 9-34 [facility] Comment on above: Performed By: #### C MP, CBCAD, LIPD #### [facility] [address] [place], [place] [id number] Bilirubin [Mass/Vol] 0.52 mg/dL Normal 0.30-1.20 [facility] Comment on above: Performed By: #### C MP, CBCAD, LIPD #### [facility] [address] [place], [place] [id number] BUN/CREA 30 Ratio High 6-22 [facility] [place] [employer] Comment on above: Performed By: #### C MP, CBCAD, LIPD #### [facility] [address] [place], [place] [id number] Calcium [Mass/Vol] 8.9 mg/dL Normal 8.6-10.2 Rohit r[facility] [place] [employer] Comment on above: Performed By: #### C MP, CBCAD, LIPD #### [facility] [address] [place], [place] [id number] Chloride [Moles/Vol] 96 mmol/L Low 98-107 [facility] [employer] Comment on above: Performed By: #### C MP, CBCAD, LIPD #### [facility] [address] [place], [place] [id number] CO2 [Moles/Vol] 29 mmol/L Normal 20-31 [facility] [employer] Comment on above: Performed By: #### C MP, CBCAD, LIPD #### [facility] [address] [place], [place] [id number] Creatinine [Mass/Vol] 0.8 mg/dL Normal 0.6-1.4 [facility] [employer] Comment on above: Performed By: #### C MP, CBCAD, LIPD #### [facility] [address] [place], [place] [id number] eGFRAA 87 mL/min/1.73m2 Normal >60 [facility] [employer] Comment on above: Performed By: #### C MP, CBCAD, LIPD #### [facility] [address] [place], [place] [id number] eGFRNAA 72 mL/min/1.73m2 Normal >60 [facility] [employer] Comment on above: Performed By: #### C MP, CBCAD, LIPD #### [facility] [address] [place], [place] [id number] Globulin (S) [Mass/Vol] 1.7 g/dL Low 1.9-3.7 [facility] [employer] Comment on above: Performed By: #### C MP, CBCAD, LIPD #### [facility] [address] [place], [place] [id number] Glucose [Mass/Vol] 186 mg/dL High 65-99 Rohit almeida [place] [employer] Comment on above: Result Comment: For FASTING Glucose --- ADA reference ranges: Normal 65-99 mg/dl Prediabetes 100-125 Diabetes >/= 126 Performed By: #### C PORTILLO, CBCAD, LIPD #### [facility] [address] [place], [place] [id number] Potassium [Moles/Vol] 3.8 mmol/L Normal 3.5-5.5 [facility] [employer] Comment on above: Performed By: #### C MP, CBCAD, LIPD #### [facility] [address] [place], [place] [id number] Protein [Mass/Vol] 5.7 g/dL Low 6.1-8.1 [facility] [employer] Comment on above: Performed By: #### C PORTILLO, CBCAD, LIPD #### [facility] [address] [place], [place] [id number] Sodium [Moles/Vol] 138 mmol/L Normal 135-146 [facility] [employer] Comment on above: Performed By: #### C PORTILLO, CBCAD, LIPD #### [facility] [address] [place], [place] [id number] Urea nitrogen [Mass/Vol] 23 mg/dL Normal 7-25 [facility] [employer] Comment on above: Performed By: #### C PORTILLO, CBCAD, LIPD #### [facility] [address] [place], [place] [id number] Lipid Panelon 09-23-2021 Cholesterol [Mass/Vol] 155 mg/dL Normal 125-200 [facility] [employer] Comment on above: Result Comment: Low risk < 200mg/dL Borderline risk 201-239 mg/dl High risk > or equal to 240 Performed By: #### C MP, CBCAD, LIPD #### [facility] [address] [place], [place] [id number] Cholesterol in HDL [Mass/Vol] 44 mg/dL Normal >40 [facility] [employer] Comment on above: Result Comment: High Cardiovascular Risk HDL <40 mg/dL Low Cardiovascular Risk HDL > or equal to 60 mg/dl Performed By: #### C MP, CBCAD, LIPD #### [facility] [address] [place], [place] [id number] Cholesterol in LDL [Mass/Vol] 71 mg/dL Normal [facility] [employer] Comment on above: Result Comment: LDL ATP III CLASSIFICATION LDL less than 100 mg/dl Optimal LDL 100-129 mg/dl Near or above optimal LDL 130-159 Borderline high LDL 160-189 High LDL greater than 189 mg/dl Very High Performed By: #### C PORTILLO, RAHEL, LIPD #### [facility] [address] [place], [place] [id number] Cholesterol in VLDL [Mass/Vol] 40 mg/dL Normal [facility] Specialist Comment on above: Performed By: #### C PORTILLO, RAHEL, LIPD #### [facility] [address] [place], [place] [id number] Cholesterol.total/ Cholesterol in HDL [Mass ratio] 4 {ratio} Normal [facility] Specialist Comment on above: Performed By: #### C RAHEL NATH, LIPD #### [facility] [address] [place], [place] [id number] Triglyceride [Mass/Vol] 202 mg/dL High 30-150 [facility] [employer] Comment on above: Result Comment: TRIG ATPIII CLASSIFICATIONS TRIG less than 150 mg/dl Normal TRIG 150-199 mg/dl Borderline High TRIG 200-500 mg/dl High TRIG greather than 500 mg/dl Very High Performed By: #### C PORTILLO, RAHEL, LIPD #### [facility] [address] [place], [place] [id number] Uric Acidon 09-23-2021 URIC 5.5 mg/dL Normal 2.5-7.0 [facility] Specialist Comment on above: Result Comment: Refe rence range change 05/25/2017. Prior reference range F 2.4-5.7mg/dL. M 3.4-7.0 mg/dL. Performed By: #### U NICOLETTE #### [facility] [address] [place], [place] [id number] Lalo 02-16-2021 GENEVA Telephone ([employer]) -------- BENIGNO CHO ([id number]) 1935 F Date Time Provider Department 02/16/21 Alejo AMHAJAN During your visit today, we recorded the following information about you: Nevin Kaye RN 02/16/2021 12:44 PM Signed Alejo Mahajan MD [facility] Rad Nurse Pool Screening mammo and result only call in one year PSS- please schedule as above. GLO- please sign new Seth order. The prior order will be denied because of the breast CA diagnosis. They will not do screening seth if we attach that. Thanks BETY Thomsa 02/17/2021 9:09 AM Signed Patient has been scheduled as instructed. Carlos Yates Allergies As of Date: 02/16/2021 Noted Allergy Reaction BACTRIM (SULFAMETHOXAZOLE) 02/13/2011 4 - Hives KEFLEX (CEPHALEXIN) 02/13/2011 4 - Hives Date Reviewed: 03/21/2017 Reviewed by: Hien Estes) BETY Turner - Fully Assessed Reason for Visit: Future Appointment [256] Primary Visit Diagnosis:Encounter for screening mammogram for malignant neoplasm of breast [Z12.31] Order(s):[facility] SCREENING [[id number]] Order #: [id number] FUTURE Prescriptions as of 02/17/2021 - oxybutynin [...] If no pain relief call 911. - [place]-3 Fatty Acids-Vitamin E (FISH OIL) 1,000 mg [...] Status:Closed by NEVIN KAYE on 02/17/21 Normal [facility] Vital Signs Date Time Vital Sign Value Performing Clinician Kerri kwok 01-02-2024 09:39-0400 Body height 152.4 cm [facility] 01-02-2024 09:39-0400 Body mass index (BMI) [Ratio] 26.4 kg/m2 [facility] 01-02-2024 09:39-0400 Body temperature 97.7 [degF] [facility] 01-02-2024 09:39-0400 Body weight 61.4 kg [facility] 01-02-2024 09:39-0400 Diastolic blood pressure 73 mm[Hg] [facility] 01-02-2024 09:39-0400 Heart rate 74 /min [facility] 01-02-2024 09:39-0400 Respiratory rate 18 /min [facility] 01-02-2024 09:39-0400 SaO2% (BldA) [Mass fraction] 97 % [facility] 01-02-2024 09:39-0400 Systolic blood pressure 125 mm[Hg] [facility] Encounters Encounter Date Encounter Type Care Provider Facility Start: 02-07-2024 End: 02-07-2024 ambulatory DONY MCDONALD Not Available Start: 01-28-2024 End: 01-28-[address] [facility] Start: 01-22-2024 End: 01-22-2024 ambulatory ANITA DUDLEY Not Available Start: 01-02-2024 End: 01-02-2024 ambulatory [facility] Work Phone: Start: 01-02-2024 End: 01-02-2024 Patient encounter procedure [facility] [facility] Work Phone: Start: 11-15-2023 End: 11-15-2023 ambulatory DONY MCDONALD Not Available Start: 10-26-2023 End: 10-26-[address] [facility] Start: 09-24-2023 End: 09-24-[address] [facility] Start: 09-24-2023 End: 09-24-2023 ambulatory ANITA DUDLEY Not Available Start: 09-06-2023 End: 09-06-2023 ambulatory DONY MCDONALD Not Available Start: 07-26-2023 End: 07-26-[address] [facility] Start: 07-16-2023 End: 07-16-2023 ambulatory ANITA DUDLEY Not Available Start: 06-18-2023 End: 06-18-2023 ambulatory DONY MCDONALD Not Available Start: 10-31-2022 End: 11-01-[address] ANITA DUDLEY Facility:[facility] Start: 06-06-2022 End: 06-07-[address] ANITA DUDLEY Facility:[facility] Start: 04-21-2022 Encounter for preprocedural cardiovascular examination KARIME BLACK [facility] Start: 04-20-2022 End: 04-21-2022 ambulatory KARIME BLACK Facility:[facility] Start: 04-20-2022 End: 04-21-2022 Encounter for preprocedural cardiovascular examination KARIME BLACK Facility:[facility] Start: 04-20-2022 Encounter for other preprocedural examination DR WAYNE JENNINGS [facility] Start: 04-18-2022 End: 04-19-[address] WAYNE JENNINGS Facility:[facility] Start: 04-18-2022 End: 04-19-2022 Encounter for other preprocedural examination DR WAYNE JENNINGS Facility:[facility] Payers Date Payer Category Payer Medicare [id number] 1960 Medicare [id number] 1935 Unknown [id number] 1934 Unknown [id number] 1934 Unknown [id number] 1934 Unknown [id number] 1934 Unknown [id number] 1934 Unknown [id number] [id number] 1934 Unknown [id number] [id number] 1934 Unknown [id number] [id number] 1934 Unknown [id number] [id number] 1934 Unknown [id number] 1934 Unknown [id number] Medicare [id number] Self-pay Self Pay [id number] Unknown [id number] Conversion Insurance b [id number] Social History Date Type Detail Facility Start: 08-11-[address] [facility] Start: 1935 Sex Assigned At Female F [facility] Medical Equipment Procedure Code Equipment Code Equipment Origin al Text Equipment Identifier Dates Blood Sugar Diagnostic (Onetouch Ultra Test) strip Start: 01-02-2024 Progress note 01-28-2024 Note Date & Type Note Facility 01-28-2024 Note [facility] Subjective Benigno Cho is a 88 y.o. year old female patient being seen for 3 mo follow up systolic heart failure, CAD, and hypertension. Echo was performed last month. Hydrochlorothiazide was stopped and she was restarted on spironolactone at last visit in October 2023. BMP was not completed. She was recently treated for yeast infection and she believes this is a side effect from Jardiance, which was started in September 2023. Still taking it. Patient still denies chest pain, SOB, palpitations, [...] diabetes mellitus with diabetic chronic kidney disease ([facility]/HCC) Uterovaginal prolapse Acute cystitis without hematuria Heart failure with reduced ejection fraction ([facility]) Medicare annual wellness visit, subsequent Other pruritus Poison dylon dermatitis Family History Problem Relation Name Age of Onset Coronary artery disease Mother Coronary artery disease Brother Social History Tobacco Use Smoking status: Never Smokeless tobacco: Never Substance Use Topics Alcohol use: Yes Comment: occasional HPI Benigno Cho is seen in follow up. She is an 88 yo lady with history of CAD as follows: She had acute inferior NM in 2004 treated by PCI to the RCA. She then had additional stenting of the RCA in July 2005. Subsequently had Cath 2005 with additional PCI ALO to RCA and LAD. She also had a cath in 2009 at [facility] and underwent additional stenting. This was complicated by retroperitoneal bleeding but she did well after that. She has history of hypertension and hyperlipidemia on treatment. She has diabetes. Previously Simvastatin was stopped due to good cholesterol levels, I had resumed it at a prior vist. I saw her on 07/26/2023 and she was doing clinically well. Given long time since evaluation of her ventricular function and her prior complex history of coronary stenting I checked an echocardiogram and this showed a new drop in ejection fraction down to 30-35%. she previously had a life scan that showed no significant coronary artery disease or peripheral vascular disease. Her EGFR was 57. At visit of 09/24/2023 and due to acute systolic heart [...] she was dehydrated. Her spironolactone was stopped. At last visit of 10/26/2023 I stopped hydrochlorothiazide and resume spironolactone at 12.5 mg once daily. I had asked for a follow-up BMP but this was not done. A follow-up echocardiogram showed ejection fraction slightly improved to 35 to 40%. Today she reports that she has been well without any symptoms of shortness of breath or chest pain. She continues to be on Jardiance. She recently had a urine tract infection with a culture on 01/23/2024 showing Enterococcus faecalis. She is being treated with fluconazole and nitrofurantoin. She just finished the course of treatment today. She feels better. She reports that she had a rash that resolved. Review of Systems Musculoskeletal: Positive for arthritis, back pain and joint pain. All other systems reviewed and are negative. Objective Visit Vitals BP 122/70 (BP Location: Right arm, Patient Posit (more content not included)... [facility] Progress note 10-26-2023 Note Date & Type Note Facility 10-26-2023 Note [place] [facility] Subjective Benigno Cho is a 88 y.o. 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 She then had additional stenting of the RCA in July 2005. Subsequently had Cath 2005 with additional PCI ALO to RCA and LAD. She also had a cath in 2009 at [facility] and underwent additional stenting. This was complicated [...] no abdominal tenderness. (more content not included)... [facility] Progress note 09-24-2023 Note Date & Type Note Facility 09-24-2023 Note [facility] Subjective Benigno Cho is a 88 y.o. year old female patient being seen for follow up echo and to discuss possible heart cath per Dr. Chandler. She had CBC, CMP, and lipid panel [...] CAD as follows: She had acute inferior NM in 2004 treated by PCI to the RCA. She then had additional stenting of the RCA in July 2005. Subsequently had Cath 2005 with additional PCI ALO to RCA and LAD. She also had a cath in 2009 at [facility] and underwent additional stenting. This was complicated [...] ci (more content not included)... [facility] Progress note 07-26-2023 Note Date & Type Note Facility 07-26-2023 Note [facility] Subjective Benigno Cho is a 87 [...] CAD as follows: She had acute inferior NM in 2004 treated by PCI to the RCA. She then had additional stenting of the RCA in July 2005. Subsequently had Cath 2005 with additional PCI ALO to RCA and LAD. She also had a cath in 2009 at [facility] and underwent additional stenting. This was complicated [...] 0.4 (more content not included)... [facility] Progress note 02-16-2021 Note Date & Type Note Facility 02-16-2021 Note HNO ID: [id number] Author: Alejo Mahajan MD Service: ? Author [...] 4 minutes Alejo Mahajan MD [facility] Evaluation note Note Date & Type Note Facility Evaluation note Diagnosis Onset Date Poison dylon dermatitis [facility] Work Phone: Summary Purpose Family History No Family History Records Found Relationship Condition Age at Onset Recorded Date/T zaid brother Unknown father Unknown mother Unknown sister Unknown Advance Directives No Advanced Directives Records Found Advance Directive Response Recorded Date/ Time Advance Directives No December 18 1:35pm Chief Complaint and Reason for Visit Chief Complaint rash on leg/arm Reason for Visit Poison dylon dermatiti s Additional Source Comments INFORMATION SOURCE (unrecogn ized section and content) DATE CREATED AUTHOR 08/10/2021 [facility] DATE CREATED AUTHOR AUTHOR'S ORGANIZ ATION 09/24/2021 [facility] dical Specialist DATE CREATED AUTHOR AUTHOR'S ORGANIZ ATION 11/04/2022 [facility] DATE CREATED AUTHOR AUTHOR'S ORGANIZ ATION 01/30/2024 [facility] DATE CREATED AUTHOR AUTHOR'S ORGANIZ ATION 02/10/2024 [facility] dical Specialists EPIC Care Teams (unrecognized sec tion and content) Team Status: Active Member Role Status Dates PHYSICIAN NO FAMILY Primary Care Provider Active Team Status: Inactive Member Role Status Dates PHYSICIAN NO FAMILY Primary Care Provider Active Start: January 02, 2024 End: January 02, 2024 Brook Malone APRN Attending Provider Active S tart: January 02, 2024 End: January 02, 2024 Goals (unrecognized section and content) Goals may be documented in a n alternate section FOR RECORDS PERTAINING TO PATIENTS WHO ARE [...] BE BASED ON THE PRIMARY CLINICAL RECORDS. [employer] provides no warranty or guarantee of the accuracy or completeness of information in this document.
[2024-02-12 09:13] LABS: Anion Gap 13.9; Calcium 9.1 mg/dL (8.5-10.1); Carbon Dioxide 28.5 mmol/L (21.0-32.0); Chloride 102 mmol/L (98-107); Chol HDL Ratio 3.1; Cholesterol 144 mg/dL (<=200); Estimated GFR (African America >60 (>=60); Estimated GFR (Non-African Ame 52 (>=60); Glucose 122 mg/dL (74-106); HDL Cholesterol 47 mg/dL (40-60); LDL Cholesterol Calculated 75.4 mg/dL; Potassium 4.4 mmol/L (3.5-5.1); Sodium 140 mmol/L (136-145); Triglycerides 108 mg/dL (<=150); VLDL CHOLESTEROL 21.6 mg/dL
[2024-02-12 09:20] LABS: Basophils Absolute Auto 0.1 10^3/uL (0.0-0.1); Basophils Percent Auto 0.3 % (0.2-2.0); Eosinophils Absolute Auto 0.2 10^3/uL (0.0-0.7); Hematocrit 41.7 % (36.0-48.0); Hemoglobin 13.8 g/dL (12.0-16.0); Immature Granulocytes Abs Auto 0.07 10^3/uL (0.00-0.03); Immature Granulocytes Pct Auto 0.5 % (0.0-0.5); Lymphocytes Absolute Auto 2.3 10^3/uL (1.2-3.8); Lymphocytes Percent Auto 15.2 % (20.5-60.0); Mean Corpuscular HGB Conc 33.1 g/dL (29.9-35.2); Mean Corpuscular Hemoglobin 32.9 pg (26.7-34.0); Mean Corpuscular Volume 99.3 fL (81.0-99.0); Mean Platelet Volume 10.5 fL (9.5-13.5); Monocytes Percent Auto 6.8 % (1.7-12.0); Neutrophils Absolute Auto 11.6 10^3/uL (1.4-6.5); Neutrophils Percent Auto 76.2 % (43.0-75.0); Platelet Count 296 10^3/uL (150-450); Red Cell Distribution Width 13.2 % (11.0-15.0); White Blood Count 15.2 10^3/uL (4.0-11.0)
== END 2024-02-12 08:32 | disposition home or self-care (01) ==
LOC: LAB 08:32
PROVIDERS: PCP Family Medicine; Visit Provider Internal Medicine Interventional Cardiology
DX: I25.10 Atherosclerotic heart disease of native coronary artery without angina pectoris (principal); I50.22 Chronic systolic (congestive) heart failure
CPT/HCPCS: 36415; 80048; 80061; 85025

== ENCOUNTER 2024-05-07 10:12 | Outpatient (OUT) | payer MEDICARE, SELFPAY ==
--- NOTE | 2024-05-07 10:15 | MM_ITS ---
Patient Name: BENIGNO CHO MR#: [id number] : 1935 Exam Date: 05/07/2024 Ordering Doctor: DR WAYNE COURTNEY M.D. RADIOLOGY REPORT PROCEDURE: MM TOMOSYNTHESIS SCREENING BI COMPARISON: MG MAMM SCREEN 3D CATHLEEN CAD, 06/06/2022. MG MAMM SCREEN 3D CATHLEEN CAD, 02/07/2021. MG MAMM SCREEN CATHLEEN W CAD, 02/04/2020. MG MAMM CATHLEEN DIAG W CAD DIG, 09/26/2013. INDICATIONS: Screening Calculator Name NCI Breast Cancer Risk Assessment Tool 5 Year Breast Cancer Risk Not Applicable. Lifetime Breast Cancer Risk Not Applicable. Personal Breast Cancer Yes, 1997 Lumpectomy Personal Ovarian Cancer No Treatments Lumpectomy, Radiation, Chemotherapy, Tamoxifen Family Cancers None LOCATION: [facility] BREAST COMPOSITION: The breasts are heterogeneously dense,which may obscure small masses. FINDINGS: DIAGNOSTIC CATEGORY 2--BENIGN FINDING: RIGHT BREAST: No significant suspicious finding. Scattered benign-appearing calcifications are present. No significant change has occurred. LEFT BREAST: No significant suspicious finding. Scattered benign-appearing calcifications are present. Stable chronic surgical changes. No significant change has occurred. RECOMMENDATIONS: ROUTINE MAMMOGRAM AND CLINICAL EVALUATION IN 12 MONTHS. PLEASE NOTE: A NORMAL MAMMOGRAM DOES NOT EXCLUDE THE POSSIBILITY OF BREAST CANCER. A CLINICALLY SUSPICIOUS PALPABLE LUMP SHOULD BE BIOPSIED. Dictated by: Herman Anthony M.D. on 05/07/2024 at 14:59 Approved by: Herman Anthony M.D. on 05/07/2024 at 15:02
--- OUTSIDE RECORDS SUMMARY | 2024-05-07 10:19 | XMS_ITS | CCD ---
Author Organization [facility] CliniSymn Care Team Providers Care [employer] Name Role Phone DICK, DR BLACK Admitting [...] KARIME Admitting Unavailable WAYNE, KARIME Attending Unavailable WAYNEKARIME Consulting Unavailable OCTAVIA, DR HOWARD Primary Care Unavailable OCTAVIA, ANITA Hutchins Attending Unavailable DONY MCDONALD Attending Unavailabl e OCTAVIA, ANITA Hutchins Attending Unavailable DONY MCDONALD Attending Unavailabl e OCTAVIAANITA Referring Unavailable OCTAVIA, ANITA Hutchins Attending Unavailable DONY MCDONALD Attending Unavailabl e OCTAVIA, ANITA Hutchins Referring Unavailable HEMMER, MALINI Hutchins Attending Unavailable DONY MCDONALD Attending Unavailabl e MOWAYNE RUGGIERO Attending Unavailable MOUKARBELWAYNE Attending Unavailable MOUKAWAYNE KING Attending Unavailable MOUKAWAYNE KING Attending Unavailable Allergies Allergy Classification Reported Allergen(s) Allergy Type Date of Onset Reaction(s) Facility (1 source) ALPRAZolam Drug Allergy [address] [facility] Repository (1 source) Cephalexin Drug Allergy [address] [facility] Repository (1 source) oxyCODONE Drug Allergy [address] [facility] Repository (1 source) Sulfamethoxazole / Trimethoprim Drug Allergy [address] [facility] Repository (1 source) Sulfonamides (Antibiotic) Drug allergy (disorder) 5 [facility] Repository (1 source) Cephalexin; Translations: [CEPHALEXIN] Drug Allergy [address] [facility] Repository (1 source) Sulfamethoxazole; Translations: [SULFAMETHOXAZOLE] Drug Allergy [address] [facility] Repository (1 source) Sulfamethoxazole / Trimethoprim; Translations: [SULFAMETHOXAZOLE-TR IMETHOPRIM] Drug Allergy [address] [facility] Repository (1 source) Trimethoprim; Translations: [TRIMETHOPRIM] Drug Allergy [address] [facility] Repository Medications Current Medications Medication Drug Class(es) [...] disease (4 sources) Atherosclerotic heart disease of [place] coronary artery without angina pectoris; Translations: [Old [...] Test Name Value Interpretation Reference Range Facility 36on 02-18-2024 36 Regarding lab result s from 02/12/2024: MD Nat Mar MA Blood testing is okay. Follow-up as planned. Patient informed. Normal [facility] Office Visiton 01-28-2024 Follow-up visit [id number] Dennis Cho 1935 F Date Provider Department Center 01/28/2024 [id number]-[id number] ZUNIGA CARD [facility] Family History Problem Relation Age of Onset Coronary artery disease Mother Coronary artery disease Brother Family Status - Relation Status Age at Mother Brother Level of Service:32270 DE OFFICE/OUTPATIENT ESTABLISHED MOD MDM [address] [facility] Office Visiton 10-26-2023 Follow-up visit [id number] Dennis Cho Salud 1935 Provider Department Center 10/26/2023 WAYNE GANT No family history on file Level of Service:10369 DE OFFICE/OUTPATIENT ESTABLISHED MOD MDM 30 MIN Reason for Visit and Comments: Follow-up [831425] - Go over stress test results and labs Normal [facility] Office Visiton 09-24-2023 Follow-up visit [id number] Dennis Cho Salud 1935 Provider Department Center 09/24/2023 WAYNE GANT No family history on file Level of Service:48022 DE OFFICE/OUTPATIENT ESTABLISHED MOD MDM 30 MIN [facility] 36on 09-13-2023 36 Regarding echo from 09/03/2023: MD Nat Mar MA her echocardiogram showed reduced ejection fraction at 30 to 35%. She needs to be seen in the office to adjust medications due to heart failure and to discuss cardiac catheterization. Spoke with patient and scheduled her to see Dr. Zuniga on 09/23. Normal [facility] Office Visiton 07-26-2023 Follow-up visit [id number] Dennis Cho Salud 1935 Provider Department Center 07/26/2023 WAYNE GANT [facility] No family history on file Level of Service:94371 DE OFFICE/OUTPATIENT ESTABLISHED LOW MDM [address] [facility] XR DEXA BONE DENSITYon 10-31 [...] HERMAN ANTHONY Date: 2022-10-31 09:16 Normal [facility] MG MAMM SCREEN 3D CATHLEEN CADon 06-06-2022 MG MAMM SCREEN 3D CATHLEEN CAD Patient: BENIGNO CHO Exam Date: 06/06/2022 : 1935 Gender:F Ordering : DR ANITA DUDLEY M.D. Admission #: [id number] Family : Order #: [id number] CLICK HERE TO VIEW EXAM RADIOLOGY REPORT PROCEDURE: MAMMOGRAM SCREENING 3D BILATERAL CAD COMPARISON: MG MAMM SCREEN 3D CATHLEEN CAD, 02/07/2021. MG MAMM SCREEN CATHLEEN W CAD, 02/04/2020. INDICATIONS: Screening mammography Calculator Name NCI Breast Cancer Risk Assessment Tool 5 Year Breast Cancer Risk Not Applicable. Lifetime Breast Cancer Risk Not Applicable. Personal Breast Cancer Yes, 1997 Lumpectomy Personal Ovarian Cancer No Treatments Lumpectomy, Radiation, Chemotherapy, Tamoxifen Family Cancers None LOCATION: [facility] BREAST COMPOSITION: Heterogeneously dense,which may obscure [...] M.D. on 06/07/2022 at 15:08 Normal [facility] PROF CHEM 8 (BAS METB)on Anion gap [Moles/Vol] 12.9 mmol/L Normal [facility] Comment on above: Performed By: #### B MP #### [facility] [address] [address] [address] Justin Sidhu Calcium [Mass/Vol] 8.8 mg/dL Normal 8.5-10.1 [facility] Comment on above: Performed By: #### B MP #### [facility] [address] [address] [address] Justin Sidhu Chloride [Moles/Vol] 99 mmol/L Normal 98-107 [facility] Comment on above: Performed By: #### B MP #### [facility] [address] [address] [address] Justin Sidhu CO2 [Moles/Vol] 25.9 mmol/L Normal 21.0-32.0 [facility] Comment on above: Performed By: #### B MP #### [facility] [address] [address] [address] Justin Sidhu Creatinine [Mass/Vol] 0.75 mg/dL Normal 0.55-1.02 [facility] Comment on above: Performed By: #### B MP #### [facility] [address] [address] [address] Justin Sidhu EGFR-AF FINNISH >60 Normal >=60 [facility] Comment on above: Performed By: #### B MP #### [facility] [address] [address] [address] Justin Sidhu EGFR-NON AF FINNISH >60 Normal >=60 [facility] Comment on above: Performed By: #### B MP #### [facility] [address] [address] [address] Justin Sidhu Glucose [Mass/Vol] 123 mg/dL Critically high 74-106 [facility] Comment on above: Performed By: #### B MP #### [facility] [address] [address] [address] Justin Sidhu Potassium [Moles/Vol] 4.8 mmol/L Normal 3.5-5.1 [facility] Comment on above: Result Comment: SPEC IMEN SLIGHTLY HEMOLIZED Performed By: #### B MP #### [facility] [address] [place], [place] [address] Dr. Justin Sidhu Sodium [Moles/Vol] 133 mmol/L Critically low 136-[address] [facility] Comment on above: Performed By: #### B MP #### [facility] [address] [address] [address] Justin Sidhu Urea nitrogen [Mass/Vol] 19.0 mg/dL Critically high 7.0-18.0 [facility] Comment on above: Performed By: #### B MP #### [facility] [address] [address] [address] Justin Sidhu Urea nitrogen/Creatinin e [Mass ratio] 25.3 mg/mg Normal [facility] Comment on above: Performed By: #### B MP #### [facility] [address] [address] [address] Justin Sidhu Complete Blood Count with Au to Diffon 09-23-2021 Basophils (Bld) [#/Vol] 0.04 10*3/uL Normal 0.00-0.20 [facility] Comment on above: Performed By: #### C MP, CBCAD, LIPD #### [facility] [address], [place] [id number] Basophils/100 WBC (Bld) 0.2 % Normal [facility] Comment on above: Performed By: #### C MP, CBCAD, LIPD #### [facility] [address] [place], [place] [id number] Eosinophils (Bld) [#/Vol] 0.10 10*3/uL Normal 0.02-0.50 [facility] Comment on above: Performed By: #### C MP, CBCAD, LIPD #### [facility] [address] [id number] Eosinophils/100 WBC (Bld) 0.6 % Normal [facility] Comment on above: Performed By: #### C MP, CBCAD, LIPD #### [facility] [address] [place], [place] [id number] Erythrocyte distribution width (RBC) [Ratio] 13.4 % Normal 11.0-15.0 [facility] Comment on above: Performed By: #### C MP, CBCAD, LIPD #### [facility] [address] [place], [place] [id number] Hematocrit (Bld) [Volume fraction] 37.9 % Normal 35.0-47.0 [facility] [employer] Child[employer] Education Worker Comment on above: Performed By: #### C MP, CBCAD, LIPD #### [facility] [address] [place], [place] [id number] Hemoglobin (Bld) [Mass/Vol] 12.8 g/dL Normal 11.6-15.5 [facility] [facility] Worker Comment on above: Performed By: #### C MP, CBCAD, LIPD #### [facility] [address] [place], [place] [id number] Lymphocytes (Bld) [#/Vol] 1.6 10*3/uL Normal 0.9-3.9 [facility] Education Worker Comment on above: Performed By: #### C MP, CBCAD, LIPD #### [facility] [address] [place], [place] [id number] Lymphocytes/100 WBC (Bld) 9.6 % Normal [facility] [employer] Childhood Education Worker Comment on above: Performed By: #### C MP, CBCAD, LIPD #### [facility] [address] [place], [place] [id number] MCH (RBC) [Entitic mass] 33.2 pg High 27.0-33.0 [facility] Childhood Education Worker Comment on above: Performed By: #### C MP, CBCAD, LIPD #### [facility] [address] [place], [place] [id number] MCHC (RBC) [Mass/Vol] 33.8 g/dL Normal 32.0-36.0 [facility] [employer] Child[employer] Education Worker Comment on above: Performed By: #### C MP, CBCAD, LIPD #### [facility] [address] [place], [place] [id number] MCV (RBC) [Entitic vol] 98 fL Normal 80-100 [facility] Child[employer] Education Worker Comment on above: Performed By: #### C MP, CBCAD, LIPD #### [facility] [address] [place], [place] [id number] Monocytes (Bld) [#/Vol] 1.0 10*3/uL High 0.2-0.9 [facility] Comment on above: Performed By: #### C MP, CBCAD, LIPD #### [facility] [address] [place], [place] [id number] Monocytes/100 WBC (Bld) 5.9 % Normal [facility] Comment on above: Performed By: #### C MP, CBCAD, LIPD #### [facility] [address] [place], [place] [id number] Neutrophils (Bld) [#/Vol] 13.5 10*3/uL High 1.5-7.8 [facility] Comment on above: Performed By: #### C MP, CBCAD, LIPD #### [facility] [address] [place], [place] [id number] Neutrophils/100 WBC (Bld) 83.0 % Normal [facility] Comment on above: Performed By: #### C MP, CBCAD, LIPD #### [facility] [address] [place], [place] [id number] Platelet mean volume (Bld) [Entitic vol] 10.60 fL Normal 7.50-12.50 [facility] Child[employer] Education Worker Comment on above: Performed By: #### C MP, CBCAD, LIPD #### [facility] [address] [place], [place] [id number] Platelets (Bld) [#/Vol] 271 10*3/uL Normal 140-400 [facility] Child[employer] Education Worker Comment on above: Performed By: #### C MP, CBCAD, LIPD #### [facility] [address] [place], [place] [id number] RBC (Bld) [#/Vol] 3.85 10*6/uL Low 3.90-5.20 [facility] Child[employer] Education Worker Comment on above: Performed By: #### C MP, CBCAD, LIPD #### [facility] [address] [place], [place] [id number] RDW-SD 48.1 fL Normal 37.0-50.0 [facility] [employer] Childhood Education Worker Comment on above: Performed By: #### C MP, CBCAD, LIPD #### [facility] [address] [place], [place] [id number] WBC (Bld) [#/Vol] 16.3 10*3/uL High 3.8-11.0 [facility] Comment on above: Performed By: #### C MP, CBCAD, LIPD #### [facility] [address] [place], [place] [id number] Comprehensive Metabolic Pane litzy 09-23-2021 Albumin [Mass/Vol] 4.0 g/dL Normal 3.6-5.1 [facility] Comment on above: Performed By: #### C MP, CBCAD, LIPD #### [facility] [address] [place], [place] [id number] Albumin/Globulin [Mass ratio] 2.4 {ratio} Normal 1.0-2.5 [facility] Comment on above: Performed By: #### C MP, CBCAD, LIPD #### [facility] [address] [place], [place] [id number] ALP [Catalytic activity/Vol] 67 U/L Normal 35-119 [facility] Comment on above: Performed By: #### C MP, CBCAD, LIPD #### [facility] [address] [place], [place] [id number] ALT [Catalytic activity/Vol] 12 U/L Normal 6-33 [facility] Comment on above: Result Comment: 06/08 Female reference range changed. Performed By: #### C MP, CBCAD, LIPD #### [facility] [address] [place], [place] [id number] Anion gap [Moles/Vol] 18 mmol/L Normal 12-20 [facility] Comment on above: Result Comment: Effe ctive 07/14/2019 reference range changed. Performed By: #### C MP, CBCAD, LIPD #### [facility] [address] [place], [place] [id number] AST [Catalytic activity/Vol] 17 U/L Normal 9-34 [facility] Comment on above: Performed By: #### C MP, CBCAD, LIPD #### [facility] [address] [place], [place] [id number] Bilirubin [Mass/Vol] 0.52 mg/dL Normal 0.30-1.20 [facility] Comment on above: Performed By: #### C MP, CBCAD, LIPD #### [facility] [address] [place], [place] [id number] BUN/CREA 30 Ratio High 6-22 [facility] Comment on above: Performed By: #### C MP, CBCAD, LIPD #### [facility] [address] [place], [place] [id number] Calcium [Mass/Vol] 8.9 mg/dL Normal 8.6-10.2 [facility] Comment on above: Performed By: #### C MP, CBCAD, LIPD #### [facility] [address] [place], [place] [id number] Chloride [Moles/Vol] 96 mmol/L Low 98-107 [facility] Comment on above: Performed By: #### C MP, CBCAD, LIPD #### [facility] [address] [place], [place] [id number] CO2 [Moles/Vol] 29 mmol/L Normal 20-31 [facility] Comment on above: Performed By: #### C MP, CBCAD, LIPD #### [facility] [address] [place], [place] [id number] Creatinine [Mass/Vol] 0.8 mg/dL Normal 0.6-1.4 [facility] Comment on above: Performed By: #### C MP, CBCAD, LIPD #### [facility] [address] [place], [place] [id number] eGFRAA 87 mL/min/1.73m2 Normal >60 [facility] Comment on above: Performed By: #### C MP, CBCAD, LIPD #### [facility] [address] [place], [place] [id number] eGFRNAA 72 mL/min/1.73m2 Normal >60 [facility] Comment on above: Performed By: #### C MP, CBCAD, LIPD #### [facility] [address] [place], [place] [id number] Globulin (S) [Mass/Vol] 1.7 g/dL Low 1.9-3.7 [facility] Comment on above: Performed By: #### C MP, CBCAD, LIPD #### [facility] [address] [place], [place] [id number] Glucose [Mass/Vol] 186 mg/dL High 65-99 [facility] Early Childhood Education Worker Comment on above: Result Comment: For FASTING Glucose --- ADA reference ranges: Normal 65-99 mg/dl Prediabetes 100-125 Diabetes >/= 126 Performed By: #### C MP, CBCAD, LIPD #### [facility] [address] [place], [place] [id number] Potassium [Moles/Vol] 3.8 mmol/L Normal 3.5-5.5 [facility] Child[employer] Education Worker Comment on above: Performed By: #### C MP, CBCAD, LIPD #### [facility] [address] [place], [place] [id number] Protein [Mass/Vol] 5.7 g/dL Low 6.1-8.1 [facility] Early Childhood Education Worker Comment on above: Performed By: #### C MP, CBCAD, LIPD #### [facility] [address] [place], [place] [id number] Sodium [Moles/Vol] 138 mmol/L Normal 135-146 [facility] Early Childhood Education Worker Comment on above: Performed By: #### C MP, CBCAD, LIPD #### [facility] [address] [place], [place] [id number] Urea nitrogen [Mass/Vol] 23 mg/dL Normal 7-25 [facility]hood Education Worker Comment on above: Performed By: #### C MP, CBCAD, LIPD #### [facility] [address] [place], [place] [id number] Lipid Panelon 09-23-2021 Cholesterol [Mass/Vol] 155 mg/dL Normal 125-200 [facility] Education Worker Comment on above: Result Comment: Low risk < 200mg/dL Borderline risk 201-239 mg/dl High risk > or equal to 240 Performed By: #### C MP, CBCAD, LIPD #### [facility] [address] [place], [place] [id number] Cholesterol in HDL [Mass/Vol] 44 mg/dL Normal >40 [facility] Childhood Education Worker Comment on above: Result Comment: High Cardiovascular Risk HDL <40 mg/dL Low Cardiovascular Risk HDL > or equal to 60 mg/dl Performed By: #### C MP, CBCAD, LIPD #### [facility] [address] [place], [place] [id number] Cholesterol in LDL [Mass/Vol] 71 mg/dL Normal [facility] Childhood Education Worker Comment on above: Result Comment: LDL ATP III CLASSIFICATION LDL less than 100 mg/dl Optimal LDL 100-129 mg/dl Near or above optimal LDL 130-159 Borderline high LDL 160-189 High LDL greater than 189 mg/dl Very High Performed By: #### C MP, CBCAD, LIPD #### [facility] [address] [place], [place] [id number] Cholesterol in VLDL [Mass/Vol] 40 mg/dL Normal [facility] Childhood Education Worker Comment on above: Performed By: #### C MP, CBCAD, LIPD #### [facility] [address] [place], [place] [id number] Cholesterol.total/ Cholesterol in HDL [Mass ratio] 4 {ratio} Normal [facility] Education Worker Comment on above: Performed By: #### C MP, CBCAD, LIPD #### [facility] [address] [place], [place] [id number] Triglyceride [Mass/Vol] 202 mg/dL High 30-150 [facility] Childhood Education Worker Comment on above: Result Comment: TRIG ATPIII CLASSIFICATIONS TRIG less than 150 mg/dl Normal TRIG 150-199 mg/dl Borderline High TRIG 200-500 mg/dl High TRIG greather than 500 mg/dl Very High Performed By: #### C MP, CBCAD, LIPD #### [facility] [address] [place], [place] [id number] Uric Acidon 09-23-2021 URIC 5.5 mg/dL Normal 2.5-7.0 [facility] Childhood Education Worker Comment on above: Result Comment: Refe rence range change 05/25/2017. Prior reference range F 2.4-5.7mg/dL. M 3.4-7.0 mg/dL. Performed By: #### U NICOLETTE #### [facility] [address] [place], [place] [id number] CNPKera 02-16-2021 FABIOLAN Telephone ([email or web address]) -------- BENIGNO CHO ([id number]) 1935 F Date Time Provider Department 02/16/21 Alejo MAHAJAN During your visit today, we recorded the following information about you: Nevin Kaye RN 02/16/2021 12:44 PM Signed Alejo Mahajan MD [facility] Nurse Pool Screening mammo and result [...] Hives Date Reviewed: 03/21/2017 Reviewed by: Hien BossPantograph Ii Engraver) BETY Turner - Fully Assessed Reason for Visit: Future Appointment [256] Primary Visit Diagnosis:Encounter for screening mammogram for malignant neoplasm of breast [Z12.31] Order(s):[facility] SCREENING [[id number]] Order #: [id number] FUTURE Prescriptions as of 02/17/2021 - oxybutynin [...] If no pain relief call 911. - [place]-3 Fatty Acids-Vitamin E (FISH OIL) 1,000 mg [...] Status:Closed by NEVIN KAYE on 02/17/21 Normal [facility] Vital Signs Date Time Vital Sign Value Performing Clinician Faci lity 01-02-2024 09:39-0400 Body height 152.4 cm [facility] 01-02-2024 09:39-0400 Body mass index (BMI) [Ratio] 26.4 kg/m2 [facility] 01-02-2024 09:39-0400 Body temperature 97.7 [degF] [facility] 01-02-2024 09:39-0400 Body weight 61.4 kg [facility] 01-02-2024 09:39-0400 Diastolic blood pressure 73 mm[Hg] [facility] 01-02-2024 09:39-0400 Heart rate 74 /min [facility] 01-02-2024 09:39-0400 Respiratory rate 18 /min [facility] 01-02-2024 09:39-0400 SaO2% (BldA) [Mass fraction] 97 % [facility] 01-02-2024 09:39-0400 Systolic blood pressure 125 mm[Hg] [facility] Encounters Encounter Date Encounter Type Care Provider Facility Start: 02-15-2024 End: 02-15-2024 ambulatory MALINI NUNO Not Available Start: 02-07-2024 End: 02-07-2024 ambulatory DONY MCDONALD Not Available Start: 01-28-2024 End: 01-28-2024 ambulatory [facility] Start: 01-22-2024 End: 01-22-2024 ambulatory RUGEN M OCTAVIA Not Available Start: 01-02-2024 End: 01-02-2024 ambulatory [facility] Work Phone: Start: 01-02-2024 End: 01-02-2024 Patient encounter procedure [facility] Work Phone: Start: 11-15-2023 End: 11-15-2023 ambulatory DONY MCDONALD Not Available Start: 10-26-2023 End: 10-26-2023 ambulatory [facility] Start: 09-24-2023 End: 09-24-2023 ambulatory [facility] Start: 09-24-2023 End: 09-24-2023 ambulatory RUGEN M OCTAVIA Not Available Start: 09-06-2023 End: 09-06-2023 ambulatory DONY MCDONALD Not Available Start: 07-26-2023 End: 07-26-2023 ambulatory [facility] Start: 07-16-2023 End: 07-16-2023 ambulatory RUGEN M OCTAVIA Not Available Start: 06-18-2023 End: 06-18-2023 ambulatory DONY MCDONALD Not Available Start: 10-31-2022 End: 11-01-[address] ANIAT DUDLEY Facility:[facility] Start: 06-06-2022 End: 06-07-[address] ANITA DUDLEY Facility:[facility] Start: 04-21-2022 Encounter for preprocedural cardiovascular examination KARIME BLACK [facility] Start: 04-20-2022 End: 04-21-2022 ambulatory KARIME BLACK Facility:[facility] Start: 04-20-2022 End: 04-21-2022 Encounter for preprocedural cardiovascular examination KARIME BLACK Facility:[facility] Start: 04-20-2022 Encounter for other preprocedural examination DR WAYNE JENNINGS [facility] Start: 04-18-2022 End: 04-19-[address] WAYNE JENNINGS Facility:[facility] Start: 04-18-2022 End: 04-19-2022 Encounter for other preprocedural examination DR WAYNE JENNINGS Facility:[facility] Payers Date Payer Category Payer Medicare [id number] 1960 Medicare [id number] 1935 Unknown [id number] 1935 Unknown [id number] [id number] 1935 Unknown [id number] 2.16.840.1.533260.3.579.2.593 1935 Unknown [id number] 2.16.840.1.416031.3.579.2.593 1935 Unknown [id number] 2.16.840.1.973115.3.579.2.1259 1935 Unknown [id number] 2.16.840.1.717562.3.579.2.1259 1934 Unknown [id number] 2.16.840.1.005085.3.579.2.1259 1934 Unknown [id number] 2.16.840.1.758690.3.579.2.1259 1934 Unknown [id number] 2.16.840.1.116981.3.579.2.1259 1934 Unknown [id number] 2.16.840.1.081342.3.579.2.1259 1934 Unknown [id number] 2.16.840.1.763483.3.579.2.1259 1934 Unknown [id number] 2.16.840.1.227134.3.579.2.1259 Medicare [id number] Self-pay Self Pay [id number] Unknown [id number] Conversion Insurance b [id number] Social History Date Type Detail Facility Start: 08-11-2013 Tobacco smoking stat us SDIS Never smoked tobacco (finding) [facility] Start: 1935 Sex Assigned At Female F [facility] Medical Equipment Procedure Code Equipment Code Equipment Origin al Text Equipment Identifier Dates Blood Sugar Diagnostic (Onetouch Ultra Test) strip Start: 01-02-2024 Progress note 01-28-2024 Note Date & Type Note Facility 01-28-2024 Note [facility] Subjective Benigno Cho is a 88 [...] of left hip PVD (peripheral vascular disease) ([facility]) Abnormal CT of the abdomen Abnormality of [...] diabetes mellitus with diabetic chronic kidney disease ([facility]) Uterovaginal prolapse Acute cystitis without hematuria Heart failure with reduced ejection fraction ([facility]) Medicare annual wellness visit, subsequent [...] CAD as follows: She had acute inferior SD in 2004 treated by PCI to the RCA. She then had additional stenting of the RCA in July 2005. Subsequently had Cath 2005 with additional PCI ALO to RCA and LAD. She also had a cath in 2009 at [facility] and underwent additional stenting. This was [...] arm, Patient Posit (more content not included)... [facility] Progress note 10-26-2023 Note Date & Type Note Facility 10-26-2023 Note [facility] Subjective Benigno Cho is a 88 [...] CAD as follows: She had acute inferior SD in 2004 treated by PCI to the RCA. She then had additional stenting of the RCA in July 2005. Subsequently had Cath 2005 with additional PCI ALO to RCA and LAD. She also had a cath in 2009 at [facility] and underwent additional stenting. This was [...] She is well-developed. She is not ill-appearing. IDRIST: Head: Normocephalic and atraumatic. Nose: Nose normal. [...] no abdominal tenderness. (more content not included)... [facility] Progress note 09-24-2023 Note Date & Type Note Facility 09-24-2023 Note [facility] Subjective Benigno Cho is a 88 y.o. year old female patient being seen for follow up echo and to discuss possible heart cath per Dr. Zuniga. She had CBC, CMP, and lipid panel drawn this morning at [facility]. Patient still denies chest pain, [...] CAD as follows: She had acute inferior SD in 2004 treated by PCI to the RCA. She then had additional stenting of the RCA in July 2005. Subsequently had Cath 2005 with additional PCI ALO to RCA and LAD. She also had a cath in 2009 at [facility] and underwent additional stenting. This was [...] Rfl: calcium ci (more content not included)... [facility] Progress note 07-26-2023 Note Date & Type Note Facility 07-26-2023 Note [facility] Subjective Benigno Cho is a [...] diabetes mellitus with diabetic chronic kidney disease ([facility]) Uterovaginal prolapse No family history on file. Social History Tobacco Use Smoking status: Never Smokeless tobacco: Never Substance Use Topics Alcohol use: Yes Comment: occasional HPI Benigno Cho is seen in follow up. She is an 87 yo lady with history of CAD as follows: She had acute inferior SD in 2004 treated by PCI to the RCA. She then had additional stenting of the RCA in July 2005. Subsequently had Cath 2005 with additional PCI ALO to RCA and LAD. She also had a cath in 2009 at [facility] and underwent additional stenting. This was [...] nitroglycerin (Nitrostat) 0.4 (more content not included)... [facility] Progress note 02-16-2021 Note Date & Type Note Facility 02-16-2021 Note HNO ID: [id number] Author: Alejo Mahajan MD Service: ? Author [...] Time Spent: 4 minutes Alejo Mahajan MD [facility] Evaluation note Note Date & Type Note Facility Evaluation note Diagnosis Onset Date Poison dylon dermatitis [facility] Work Phone: Summary Purpose Family History No [...] section and content) DATE CREATED AUTHOR 08/10/2021 [facility] DATE CREATED AUTHOR AUTHOR'S ORGANIZ ATION 09/24/2021 [facility] DATE CREATED AUTHOR AUTHOR'S ORGANIZ ATION 11/04/2022 [facility] DATE CREATED AUTHOR AUTHOR'S ORGANIZ ATION 02/17/2024 [facility] EPIC DATE CREATED AUTHOR AUTHOR'S ORGANIZ ATION 02/19/2024 [facility] Care Teams (unrecognized sec tion and content) [...] BE BASED ON THE PRIMARY CLINICAL RECORDS. [facility] [employer] [facility]. provides no warranty or guarantee of the accuracy or completeness of information in this document.
== END 2024-05-07 10:13 | disposition home or self-care (01) ==
LOC: MAMMO 10:12
PROVIDERS: PCP Family Medicine; Visit Provider Radiology Radiation Oncology
DX: Z12.31 Encounter for screening mammogram for malignant neoplasm of breast (principal); Z85.3 Personal history of malignant neoplasm of breast
CPT/HCPCS: 77063; 77067

== ENCOUNTER 2024-06-17 12:51 | Outpatient (OUT) | payer MEDICARE, SELFPAY ==
--- NOTE | 2024-06-17 12:54 | CA_ITS ---
Patient Name: BENIGNO CHO MR#: [id number] : 1935 Exam Date: 06/17/2024 Ordering Doctor: DR WAYNE CHANDLER M.D. ECHOCARDIOGRAM REPORT PROCEDURE: CA ECHO DOPPLER COMPLETE INDICATIONS: Heart failure with reduced EF COMPARISON: None. DESCRIPTION: COMPLETE ECHOCARDIOGRAM Real-time transthoracic echocardiography with 2D, M-mode, spectral and color flow Doppler performed. QUALITY: Technical quality was good. LEFT VENTRICLE: Normal chamber size. Mild concentric left ventricular hypertrophy. Global left ventricular systolic function is mildly to moderately decreased. LV EF: Visual estimation of left ventricular ejection fraction is 40%. DIASTOLIC: ATRIAL SEPTUM: LEFT ATRIUM: Moderate dilatation. RIGHT ATRIUM: Normal chamber size. RIGHT VENTRICLE: Normal chamber size. Normal right ventricular systolic function. TRICUSPID VALVE: Normal mobility and thickness. No stenosis with trivial regurgitation. No evidence of pulmonary hypertension. RVSP 18 mmHg MITRAL VALVE: Normal mobility and thickness. No evidence of mitral valve stenosis. Mild mitral annular calcification. Mild mitral regurgitation. AORTIC VALVE: Normal trileaflet appearance. Mildly calcified aortic valve. Mildly diminished mobility. Doppler velocity suggest no significant aortic valve stenosis. No aortic regurgitation. AORTIC ROOT: Normal diameter and appearance. PULMONIC VALVE: Normal thickness and mobility. No stenosis. Trivial regurgitation. PERICARDIUM: No evidence of pericardial effusion. IVC: Collapses with inspirations. PLEURA: CONCLUSION: 1. Mild concentric left ventricular hypertrophy with mildly to moderately reduced systolic function. Estimated LVEF is 40%. 2. Normal right ventricular size and systolic function. 3. Mild mitral regurgitation. 4. Normal right-sided pressures. Adult Echocardiography Procedure Report Left Ventricle LVEDD (3.7 - 5.6 cm): 5.10 cm LVESD (2.2 - 4.0 cm): 4.29 cm LVIVS thickness (0.6 - 1.2 cm): 1.15 cm LVPW thickness (0.5 - 1.0 cm): 1.06 cm e': 0.07 m/s E - e': 8.69 LVOT Max Gradient: 1.05 mm[Hg] LVOT Area (cm2): 0.51 m/s Peak Velocity (LVOT): 0.51 m/s Mean Velocity (LVOT): 0.38 m/s LVOT Diameter 1.87 cm Left Ventricular Ejection Fraction: 40 % Left Atrium LA Volume Index (2D A2C): 52.23 ml/m2 Left Atrium Systolic Dimension: 4.06 cm Mitral Valve MV E to A Ratio: 0.81 Mitral Valve A-Wave Peak Velocity: 0.75 m/s Mitral Valve E-Wave Peak Velocity: 0.60 m/s Right Ventricle RV Internal Diastolic Dimension: 2.42 cm Aorta AO Root Diam: 2.67 cm Ascending Ao Diam: 2.89 cm Aortic Valve AoV Area (Peak Gallo): 1.06 cm2, 1.06 cm2 AoV Area (VTI): 1.00 cm2, 1.00 cm2 Peak Velocity(Antegrade Flow): 1.33 m/s Peak Gradient(Antegrade Flow): 7.07 mm[Hg] Mean Velocity(Antegrade Flow): 0.98 m/s Mean Gradient(Antegrade Flow): 4.32 mm[Hg] Velocity Time Integral: 34.52 cm Tricuspid Valve Peak Velocity (Regurgitant Flow): 1.97 m/s, 1.91 m/s Pulmonic Valve Mean Gradient: 1.42 mm[Hg], 1.98 mm[Hg] Mean Velocity: 0.57 m/s, 0.67 m/s Peak Velocity: 0.87 m/s Peak Gradient: 2.60 mm[Hg], 3.56 mm[Hg] Right Atrium Right Atrium Systolic Pressure: 15.58 ml, 15.58 ml Dictated by: Wayne Chandler M.D. on 06/17/2024 at 19:48 Approved by: Wayne Chandler M.D. on 06/17/2024 at 19:53
== END 2024-06-17 12:52 | disposition home or self-care (01) ==
LOC: CARD 12:51
PROVIDERS: PCP Family Medicine; Visit Provider Internal Medicine Interventional Cardiology
DX: I50.22 Chronic systolic (congestive) heart failure (principal)
CPT/HCPCS: 93306; 93356

== ENCOUNTER 2024-07-28 08:54 | Outpatient (OUT) | payer MEDICARE, SELFPAY ==
--- OUTSIDE RECORDS SUMMARY | 2024-07-28 08:57 | XMS_ITS | CCD ---
Author Organization [facility] Care Team Providers Care Remote Sensing Advisor Name Role Phone DICK, DR BLACK Admitting [...] Unavailable OCTAVIA, DR HOWARD Primary Care Unavailable Dustin Dudley MD Unavailable Dustin Dudley MD Primary Care Provider WAYNE ZUNIGA Attending Unavailable MOWAYNE RUGGIERO Attending Unavailable WAYNE ZUNIGA Attending Unavailable WAYNE ZUNIGA Attending Unavailable WAYNE ZUNIGA Attending Unavailable DONY MCDONALD Attending Unavailabl e OCTAVIADUSTIN Attending Unavailable DONY MCDONALD Attending Unavailabl e DUSTIN DUDLEY Referring Unavailable OCTAVIA, DUSTIN Hutchins Attending Unavailable DONY MCDONALD Attending Unavailabl e DUSTIN DUDLEY Referring Unavailable HEMMALINI CHAVEZ Attending Unavailable DONY MCDONALD Attending Unavailabl e OCTAVIADUSTIN Attending Unavailable DONY MCDONALD Attending Unavailabl e Allergies Allergy Classification Reported Allergen(s) Allergy Type Date of Onset Reaction(s) Facility (1 source) ALPRAZolam Drug Allergy 01-13-20 15 [facility] Repository (1 source) Cephalexin Drug Allergy 06-25-20 15 [facility] (1 source) oxyCODONE Drug Allergy 05-09-20 11 [facility] (1 source) Sulfamethoxazole / Trimethoprim Drug Allergy 06-25-20 15 [facility] (1 source) Sulfonamides (Antibiotic) Drug allergy (disorder) 06-25-20 15 [facility]ository (8 sources) Cephalexin; Translations: [CEPHALEXIN] Drug Allergy 02-14-20 11 Hives, Unknown [facility] (8 sources) Sulfamethoxazole; Translations: [SULFAMETHOXAZOLE] Allergy to substance 02-14-20 11 Hives, Unknown [facility] (8 sources) Sulfamethoxazole / Trimethoprim; Translations: [SULFAMETHOXAZOLE-TR IMETHOPRIM] Drug Allergy 06-08-20 22 [facility] Healthcare (7 sources) Sulfonamides (Antibiotic) Drug Allergy 01-02-20 24 [facility] Healthcare (8 sources) Trimethoprim; Translations: [TRIMETHOPRIM] Drug Allergy 01-15-20 21 Unknown [facility] Medications Current Medications Medication Drug Class(es) Dates Sig (Normalized) Sig (Original) ALPRAZolam 0.25 mg oral tablet (9 sources) Benzodiazepine Start: 10-29-2023 End: 07-22-2024 take 1 tablet by mouth every twelve hours for anxiety and anxiety ALPRAZolam (Xanax) 0.25 MG tablet Indications: Anxiety Take 1 tablet (0.25 mg) by mouth every 12 (twelve) hours 30 tablet 07/22/2024 Active aspirin 81 mg delayed release oral tablet (7 sources) Platelet Aggregation Inhibitor, Nonsteroidal Anti-inflammatory Drug aspirin 81 MG EC tablet 2 (two) times a day. Active baclofen 5 mg oral tablet (4 sources) gamma-Aminobutyric Acid-ergic Agonist Start: 07-22-2024 End: 08-22-2024 take 1 tablet by mouth in the morning, then take 1 tablet by mouth in the evening, then take 1 tablet by mouth at bedtime baclofen (Lioresal) 5 MG tablet Indications: Sacroiliitis (CMS/HCC) Take 1 tablet (5 mg) by mouth in the morning and 1 tablet (5 mg) in the evening and 1 tablet (5 mg) before bedtime. 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 Active Cyclosporine (1 source) Calcineurin Inhibitor Immunosuppressant Start: 4 Cyclosporine Active DROPS OPHTHALMIC January 02, 2024 12:00am cycloSPORINE (Restasis) 0.05 % ophthalmic emulsion (7 sources) Start: 4 cycloSPORINE (Restasis) 0.05 % ophthalmic emulsion 01/02/2024 Active empagliflozin 10 mg oral tablet (8 sources) Sodium-Glucose Cotransporter 2 Inhibitor Start: 4 Empagliflozin (Jardiance) 10 mg tablet Active MG PO January 02, 2024 12:00am take 1 tablet by mouth in the mo rning Jardiance 10 MG TAKE 1 TABLET BY MOUTH IN THE MORNING FOR 14 DAYS Active fluconazole 100 mg oral tablet (4 sources) Azole Antifungal Start: 07-22-2024 End: 07-26-2024 take 1 tablet by mouth once daily fluconazole (Diflucan) 100 MG tablet Indications: Vaginal itching Take 1 tablet (100 mg) by mouth Daily for 3 days 3 tablet 07/23/2024 07/26/2024 Active lidocaine 0.05 mg/mg medicated patch (4 sources) Antiarrhythmic, Amide Local Anesthetic Start: 07-22-2024 End: 08-22-2024 apply 1 dose transdermal route every twelve hours lidocaine (Lidoderm) 5 % patch Indications: Sacroiliitis (CMS/HCC) Apply 1 patch over 12 hours topically Daily Apply to painful area 12 hours per day, remove for 12 hours. 30 patch 07/23/2024 08/22/2024 Active magnesium oxide 400 mg oral tablet (7 sources) magnesium oxide (Mag-Ox) 400 MG tablet Daily. Active Metoprolol (8 sources) beta-Adrenergic Amanda Start: 01-02-2024 Metoprolol Succinate Active MG PO January 02, 2024 12:00am take 1 tablet by kaya th every twenty-four hours in the morning metoprolol succinate XL (Toprol-XL) 25 M G 24 hr tablet TAKE 1 TABLET BY MOUTH IN THE MORNING FOR 14 DAYS*DO NOT CRUSH OR CHEW* Active nitroglycerin 0.4 mg sublingual tablet (7 sources) Nitrate Vasodilator Start: 07-16-2023 nitroglycerin (Nitrostat) 0.4 MG SL tablet Indications: Coronary arteriosclerosis (CMS/HCC) Place 1 tablet (0.4 mg) under the tongue every 5 (five) minutes if needed for chest pain 15 tablet 12 07/16/2023 Active predniSONE 20 mg oral tablet (1 source) Start: 01-02-2024 take 20 mg by mouth once daily Prednisone Active 20 MG PO Daily 5 5 January 02, 2024 12:00am simvastatin 20 mg oral tablet (8 sources) HMG-CoA Reductase Inhibitor Start: 01-22-2024 End: 01-21-2025 take 1 tablet by mouth at bedtime simvastatin (Zocor) 20 MG tablet Indications: Hypertension, unspecified type (CMS/HCC) Take 1 tablet (20 mg) by mouth at bedtime 360 tablet 01/22/2024 01/21/2025 Active Start: 01-02-2024 Simvastatin Ac tive MG PO January 02, 2024 12:00am SITagliptin 100 mg oral tablet (8 sources) Dipeptidyl Peptidase 4 Inhibitor Start: 10-04-2023 Januvia 100 MG tablet Indications: Type 2 diabetes mellitus with chronic kidney disease, with long-term current use of insulin, unspecified CKD stage (CMS/HCC) TAKE 1 TABLET DAILY 100 tablet 3 10/04/2023 Active spironolactone 25 mg oral tablet (7 sources) Aldosterone Antagonist take 0.5 tablet by mouth once daily spironolactone (Aldactone) 25 MG tablet Take by mouth Daily Take 1/2 daily. Active ubidecarenone 200 mg oral capsule (7 sources) coenzyme Q-10 20 0 MG capsule 1 (one) time each day at the same time. Active Completed/Discontinued Medications Medication Drug Class(es) Dates Sig (Normalized) Sig (Original) calcium citrate 950 mg oral tablet (5 sources) End: 07-22-2024 take 1 tablet by mouth in the morning calcium citrate (Calcitrate) 950 (200 Ca) MG tablet Take 1,000 mg by mouth in the morning and 1,000 mg before bedtime. 07/22/2024 Discontinued (Other) oxybutynin chloride 5 mg oral tablet (6 sources) Cholinergic Muscarinic Antagonist Start: 04-21-2024 End: 07-22-2024 oxybutynin (Ditropan) 5 MG tablet Indications: Overactive bladder TAKE ONE-HALF (1/2) TABLET TWICE A DAY 100 tablet 3 04/21/2024 07/22/2024 Discontinued (Other) Start: 01-02-2024 Oxybutynin Chl oride Active MG PO January 02, 2024 12:00am Problems Active Problems Problem Classification Problem Date Documented Date Episodic/Chronic Adjustment disorders (7 sources) Adjustment disorder with anxious mood; Translations: [Adjustment disorder with anxiety] Onset: 04-12-2015 11-30-2022 Chronic Anxiety disorders (9 sources) Anxiety; Translations: [Anxiety disorder, unspecified] Onset: 07-16-2023 07-16-2023 Chronic Chronic kidney disease (9 sources) Chronic kidney disease stage 3A ; Translations: [Stage 3a chronic kidney disease (HCC)] Onset: 01-06-2020 11-30-2022 Chronic Congestive heart failure; nonhypertensive (13 sources) Heart failure with reduced ejection fraction; Translations: [Unspecified systolic (congestive) heart failure] Onset: 09-24-2023 09-24-2023 Chronic Coronary atherosclerosis and other heart disease (18 sources) 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; Translations: [Atherosclerotic heart disease of [place] coronary artery without angina pectoris] Onset: 04-12-2015 11-30-2022 Chronic Coronary atherosclerosis and other heart disease (2 sources) Presence of coronary angioplasty implant and graft; Translations: [Presence of coronary angioplasty implant and graft] Onset: 06-23-2024 Episodic Diabetes mellitus with complications (20 sources) Disorder of kidney due to diabetes mellitus; Translations: [Type 2 diabetes mellitus with diabetic nephropathy] Onset: 10-11-2016 11-30-2022 Chronic Diseases of white blood cells (6 sources) Leukocytosis; Translations: [Elevated white blood cell count, unspecified] Onset: 07-22-2024 07-22-2024 Chronic Disorders of lipid metabolism (7 sources) Hypertriglyceridemia; Translations: [Pure hyperglyceridemia] Onset: 04-12-2015 11-30-2022 Chronic Esophageal disorders (7 sources) Gastroesophageal reflux disease; Translations: [Gastro-esophageal reflux disease without esophagitis] Onset: 08-11-2015 11-30-2022 Chronic Essential hypertension (9 sources) Hypertensive disorder; Translations: [Essential (primary) hypertension] Onset: 06-08-2022 11-30-2022 Chronic Gout and other crystal arthropathies (7 sources) Gouty arthropathy; Translations: [Gout, unspecified] Onset: 10-22-2015 11-30-2022 Chronic Menopausal disorders (4 sources) Other primary ovarian failure; Translations: [OTHER PRIMARY OVARIAN FAILURE] Onset: 10-31-2022 Chronic Mycoses (9 sources) Onychomycosis due to dermatophyte ; Translations: [Tinea unguium] Onset: 04-10-2019 11-30-2022 Episodic Osteoarthritis (7 sources) Osteoarthritis; Translations: [Unspecified osteoarthritis, unspecified site] Onset: 12-17-2007 11-30-2022 Chronic Other bone disease and musculoskeletal deformities (1 source) Other specified disorders of bone density and structure, left thigh; Translations: [OTH D/O BONE DEN STRUCT LT THIGH] Onset: 11-04-2022 Episodic Other nervous system disorders (7 sources) Carpal tunnel syndrome of left wrist; Translations: [Carpal tunnel syndrome, left upper limb] Onset: 11-30-2022 11-30-2022 Chronic Other nervous system disorders (7 sources) Disorder of muscle; Translations: [Myopathy, unspecified] Onset: 05-10-2023 05-10-2023 Chronic Other nutritional; endocrine; and metabolic disorders (7 sources) Lipoprotein deficiency disorder; Translations: [Lipoprotein deficiency] Onset: 08-11-2015 11-30-2022 Chronic Other upper respiratory disease (7 sources) Allergic rhinitis; Translations: [Allergic rhinitis, unspecified] Onset: 08-11-2015 11-30-2022 Chronic Peripheral and visceral atherosclerosis (7 sources) Peripheral vascular disease, unspecified; Translations: [Peripheral vascular disease, unspecified] Onset: 11-30-2022 11-30-2022 Chronic Spondylosis; intervertebral disc disorders; other back problems (6 sources) Inflammation of sacroiliac joint; Translations: [Sacroiliitis, not elsewhere classified] Onset: 07-22-2024 07-22-2024 Chronic Past or Other Problems Problem Classification Problem Date Documented Date Episodic/Chronic Allergic reactions (9 sources) Contact dermatitis due to poison dylon; Translations: [Allergic contact dermatitis due to plants, except food] Onset: 01-22-2024 01-02-2024 Episodic Anal and rectal conditions (7 sources) Disorder of rectum; Translations: [Disease of anus and rectum, unspecified] Onset: 05-16-2023 05-16-2023 Episodic Cancer of breast (7 sources) Malignant tumor of breast ; Translations: [Malignant neoplasm of unspecified site of unspecified female breast] Onset: 08-11-2015 Resolved: 02-15-2024 02-15-2024 Chronic Cancer of breast (8 sources) Personal history of malignant neoplasm of breast; Translations: [History of malignant neoplasm of breast] Onset: 06-10-2022 02-15-2024 Episodic Melanomas of skin (7 sources) H/O Malignant melanoma; Translations: [Personal history of malignant melanoma of skin] Onset: 08-11-2015 11-30-2022 Episodic Other bone disease and musculoskeletal deformities (7 sources) Osteopenia; Translations: [Other specified disorders of bone density and structure, left thigh] Onset: 03-26-2018 11-30-2022 Episodic Other connective tissue disease (7 sources) Muscle pain; Translations: [Myalgia, unspecified site] Onset: 04-18-2023 04-18-2023 Episodic Other female genital disorders (9 sources) Pruritus of vagina; Translations: [Other specified noninflammatory disorders of vagina] Onset: 01-22-2024 Resolved: 02-15-2024 02-15-2024 Episodic Other inflammatory condition of skin (7 sources) Itching of skin; Translations: [Other pruritus] Onset: 01-22-2024 01-22-2024 Episodic Other screening for suspected conditions (not mental disorders or infectious disease) (11 sources) Encounter for screening mammogram for malignant neoplasm of breast; Translations: [CT of abdomen abnormal] Onset: 06-06-2022 Episodic Urinary tract infections (7 sources) Acute cystitis; Translations: [Acute cystitis without hematuria] Onset: 01-22-2024 01-22-2024 Episodic Results Test Name Value Interpretation Reference Range Facility Laboratory - Hematology and Cell countson 07-22-2024 HbA1c (Bld) [Mass fraction] 6.4 % [facility] No Panel Informationon 07-22 Interpretation and review of laboratory results Abnormal [facility] Office Visiton 06-23-2024 Follow-up visit [id number] DangDennis amador A 1935 F Date Provider Department Center 06/23/2024 WAYNE GANT Family History Problem Relation Age of Onset Coronary artery disease Mother Coronary artery disease Brother Family Status - Relation Status Age at Mother Brother Level of Service:82395 [place] OFFICE/OUTPATIENT ESTABLISHED LOW MDM 20 MIN Normal [facility] 36on 02-18-2024 36 Regarding lab result s from 02/12/2024: MD Nat Mar MA Blood testing is okay. Follow-up as planned. Patient informed. Normal [facility] Office Visiton 01-28-2024 Follow-up visit [id number] Dennis Cho A 1935 F Date Provider Department Center 01/28/2024 WAYNE GANT Family History Problem Relation Age of Onset Coronary artery disease Mother Coronary artery disease Brother Family Status - Relation Status Age at Mother Brother Level of Service:21613 [place] OFFICE/OUTPATIENT ESTABLISHED MOD MDM 30 MIN Normal [facility] Office Visiton 10-26-2023 Follow-up visit [id number] Dennis Cho A 1935 F Date Provider Department Center 10/26/2023 WAYNE GANT No family history on file Level of Service:16213 [place] OFFICE/OUTPATIENT ESTABLISHED MOD MDM 30 MIN Reason for Visit and Comments: Follow-up [671835] - Go over stress test results and labs Normal [facility] Office Visiton 09-24-2023 Follow-up visit [id number] Dennis Cho A 1935 F Date Provider Department Center 09/24/2023 WAYNE GANT No family history on file Level of Service:11358 [place] OFFICE/OUTPATIENT ESTABLISHED MOD MDM [address] [facility] 36on 09-13-2023 36 Regarding echo from 09/03/2023: MD Nat Mar MA her echocardiogram showed reduced ejection fraction at 30 to 35%. She needs to be seen in the office to adjust medications due to heart failure and to discuss cardiac catheterization. Spoke with patient and scheduled her to see Dr. Zuniga on 09/23. Normal [facility] Office Visiton 07-26-2023 Follow-up visit [id number] Sapphire Chosamantha Brannon 1935 F Date Provider Department Center 07/26/2023 [facility]-WAYNE ZUNIGA KARLENE [facility] No family history on file Level of Service:32433 [place] OFFICE/OUTPATIENT ESTABLISHED LOW MDM [address] [facility] XR DEXA BONE DENSITYon 10-31 XR [...] by: HERMAN ANTHONY Date: 2022-10-31 09:16 Normal [facility] MG MAMM SCREEN 3D CATHLEEN CADon 06-06-2022 MG MAMM SCREEN 3D CATHLEEN CAD Patient: BENIGNO CHO. Exam Date: 06/06/2022 : 1935 Gender:F Ordering : DR DUSTIN DUDLEY M.D. Admission #: [id number] Family : Order #: [id number] CLICK HERE TO VIEW EXAM RADIOLOGY REPORT [...] Chemotherapy, Tamoxifen Family Cancers None LOCATION: [facility] BREAST COMPOSITION: Heterogeneously dense,which may [...] M.D. on 06/07/2022 at 15:08 Normal [facility] PROF CHEM 8 (BAS METB)on Anion gap [Moles/Vol] 12.9 mmol/L Normal [facility] Comment on above: Performed By: #### B MP #### [facility] [address] [address] [address] Justin Sidhu Calcium [Mass/Vol] 8.8 mg/dL Normal 8.5-10.1 [facility] Comment on above: Performed By: #### B MP #### [facility] [address] [address] [address] Justin Sidhu Chloride [Moles/Vol] 99 mmol/L Normal 98-107 [facility] Comment on above: Performed By: #### B MP #### [facility] [address] [address] [address] Justin Sidhu CO2 [Moles/Vol] 25.9 mmol/L Normal 21.0-32.0 [facility] Comment on above: Performed By: #### B MP #### [facility] [address] [address] [address] Justin Sidhu Creatinine [Mass/Vol] 0.75 mg/dL Normal 0.55-1.02 [facility] Comment on above: Performed By: #### B MP #### [facility] [address] [address] [address] Justin Sidhu EGFR-AF NAMIBIAN >60 Normal >=60 [facility] Comment on above: Performed By: #### B MP #### [facility] [address] [address] [address] Justin Sidhu EGFR-NON AF NAMIBIAN >60 Normal >=60 [facility] Comment on above: Performed By: #### B MP #### [facility] [address] [address] [address] Justin Sidhu Glucose [Mass/Vol] 123 mg/dL Critically high 74-106 [facility] Comment on above: Performed By: #### B MP #### [facility] [address] [address] [address] Justin Sidhu Potassium [Moles/Vol] 4.8 mmol/L Normal 3.5-5.1 [facility] Comment on above: Result Comment: SPEC IMEN SLIGHTLY HEMOLIZED Performed By: #### B MP #### [facility] [address] [address] [address] Justin Sidhu Sodium [Moles/Vol] 133 mmol/L Critically low 136-145 Th [facility] Comment on above: Performed By: #### B MP #### [facility] [address] [address] [address] Justin Sidhu Urea nitrogen [Mass/Vol] 19.0 mg/dL Critically high 7.0-18.0 [facility] Comment on above: Performed By: #### B MP #### [facility] [address] [place] [address] Dr. Justin Sidhu Urea nitrogen/Creatinine [Mass ratio] 25.3 mg/mg Normal [facility] Comment on above: Performed By: #### B MP #### [facility] [address] [place], [place] [address] Dr. Justin Sidhu Complete Blood Count with Au to Diffon 09-23-2021 Basophils (Bld) [#/Vol] 0.04 10*3/uL Normal 0.00-0.20 [facility] Comment on above: Performed By: #### C MP, CBCAD, LIPD #### [facility] [address], [place] [id number] Basophils/100 WBC (Bld) 0.2 % Normal [facility] Comment on above: Performed By: #### C MP, CBCAD, LIPD #### [facility] [address], [place] [id number] Eosinophils (Bld) [#/Vol] 0.10 10*3/uL Normal 0.02-0.50 [facility] Comment on above: Performed By: #### C MP, CBCAD, LIPD #### [facility] [address], [place] [id number] Eosinophils/100 WBC (Bld) 0.6 % Normal [facility] Comment on above: Performed By: #### C MP, CBCAD, LIPD #### [facility] [address], [place] [id number] Erythrocyte distribution width (RBC) [Ratio] 13.4 % Normal 11.0-15.0 [facility] Comment on above: Performed By: #### C MP, CBCAD, LIPD #### [facility] [address], [place] [id number] Hematocrit (Bld) [Volume fraction] 37.9 % Normal 35.0-47.0 [facility] Comment on above: Performed By: #### C MP, CBCAD, LIPD #### [facility] [address], [place] [id number] Hemoglobin (Bld) [Mass/Vol] 12.8 g/dL Normal 11.6-15.5 [facility] Comment on above: Performed By: #### C MP, CBCAD, LIPD #### [facility] [address], [place] [id number] Lymphocytes (Bld) [#/Vol] 1.6 10*3/uL Normal 0.9-3.9 [facility] Comment on above: Performed By: #### C MP, CBCAD, LIPD #### [facility] [address], [place] [id number] Lymphocytes/100 WBC (Bld) 9.6 % Normal [facility] Comment on above: Performed By: #### C MP, CBCAD, LIPD #### [facility] [address], [place] [id number] MCH (RBC) [Entitic mass] 33.2 pg High 27.0-33.0 [facility] Comment on above: Performed By: #### C MP, CBCAD, LIPD #### [facility] [address], [place] [id number] MCHC (RBC) [Mass/Vol] 33.8 g/dL Normal 32.0-36.0 [facility] Comment on above: Performed By: #### C MP, CBCAD, LIPD #### [facility] [address], [place] [id number] MCV (RBC) [Entitic vol] 98 fL Normal 80-100 [facility] Comment on above: Performed By: #### C MP, CBCAD, LIPD #### [facility] [address], [place] [id number] Monocytes (Bld) [#/Vol] 1.0 10*3/uL High 0.2-0.9 [facility] Comment on above: Performed By: #### C MP, CBCAD, LIPD #### [facility] [address], [place] [id number] Monocytes/100 WBC (Bld) 5.9 % Normal [facility] Comment on above: Performed By: #### C MP, CBCAD, LIPD #### [facility] [address], [place] [id number] Neutrophils (Bld) [#/Vol] 13.5 10*3/uL High 1.5-7.8 [facility] Comment on above: Performed By: #### C MP, CBCAD, LIPD #### [facility] [address], [place] [id number] Neutrophils/100 WBC (Bld) 83.0 % Normal [facility] Comment on above: Performed By: #### C MP, CBCAD, LIPD #### [facility] [address], [place] [id number] Platelet mean volume (Bld) [Entitic vol] 10.60 fL Normal 7.50-12.50 [facility] Comment on above: Performed By: #### C MP, CBCAD, LIPD #### [facility] [address], [place] [id number] Platelets (Bld) [#/Vol] 271 10*3/uL Normal 140-400 [facility] Comment on above: Performed By: #### C MP, CBCAD, LIPD #### [facility] [address], [place] [id number] RBC (Bld) [#/Vol] 3.85 10*6/uL Low 3.90-5.20 [facility] Comment on above: Performed By: #### C MP, CBCAD, LIPD #### [facility] [address], [place] [id number] RDW-SD 48.1 fL Normal 37.0-50.0 [facility] Comment on above: Performed By: #### C MP, CBCAD, LIPD #### [facility] [address], [place] [id number] WBC (Bld) [#/Vol] 16.3 10*3/uL High 3.8-11.0 [facility] Comment on above: Performed By: #### C MP, CBCAD, LIPD #### [facility] [address], [place] [id number] Comprehensive Metabolic Pane litzy 09-23-2021 Albumin [Mass/Vol] 4.0 g/dL Normal 3.6-5.1 [facility] Comment on above: Performed By: #### C MP, CBCAD, LIPD #### [facility] [address], [place] [id number] Albumin/Globulin [Mass ratio] 2.4 {ratio} Normal 1.0-2.5 [facility] Comment on above: Performed By: #### C MP, CBCAD, LIPD #### [facility] [address] [place], [place] [id number] ALP [Catalytic activity/Vol] 67 U/L Normal 35-119 [facility] Comment on above: Performed By: #### C MP, CBCAD, LIPD #### [facility] [address] [facility] [place] [id number] ALT [Catalytic activity/Vol] 12 U/L Normal 6-33 [facility] Comment on above: Result Comment: 06/08 Female reference range changed. Performed By: #### C MP, CBCAD, LIPD #### [facility] [address] [place], [place] [id number] Anion gap [Moles/Vol] 18 mmol/L Normal 12-20 [facility] Comment on above: Result Comment: Effe ctive 07/14/2019 reference range changed. Performed By: #### C MP, CBCAD, LIPD #### [facility] [address] [facility] [place] [id number] AST [Catalytic activity/Vol] 17 U/L Normal 9-34 [facility] Comment on above: Performed By: #### C MP, CBCAD, LIPD #### [facility] [address] [facility] [id number] Bilirubin [Mass/Vol] 0.52 mg/dL Normal 0.30-1.20 [facility] Comment on above: Performed By: #### C MP, CBCAD, LIPD #### [facility] [address] [facility] [place] [id number] BUN/CREA 30 Ratio High 6-22 [facility] Comment on above: Performed By: #### C MP, CBCAD, LIPD #### [facility] [address] [place], [place] [id number] Calcium [Mass/Vol] 8.9 mg/dL Normal 8.6-10.2 [facility] Comment on above: Performed By: #### C MP, CBCAD, LIPD #### [facility] [address] [place], [place] [id number] Chloride [Moles/Vol] 96 mmol/L Low 98-107 [employer] Comment on above: Performed By: #### C PORTILLO, CBCAD, LIPD #### [facility] [address] [place], [place] [id number] CO2 [Moles/Vol] 29 mmol/L Normal 20-31 [facility] Comment on above: Performed By: #### C PORTILLO, CBCAD, LIPD #### [facility] [address] [place], [place] [id number] Creatinine [Mass/Vol] 0.8 mg/dL Normal 0.6-1.4 [facility] Comment on above: Performed By: #### C PORTILLO, CBCAD, LIPD #### [facility] [address] [facility] [place] [id number] eGFRAA 87 mL/min/1.73m2 Normal >60 [facility] Comment on above: Performed By: #### C PORTILLO, CBCAD, LIPD #### [facility] [address] [place], [place] [id number] eGFRNAA 72 mL/min/1.73m2 Normal >60 [facility] Comment on above: Performed By: #### C PORTILLO, CBCAD, LIPD #### [facility] [address] [place], [place] [id number] Globulin (S) [Mass/Vol] 1.7 g/dL Low 1.9-3.7 [facility] Comment on above: Performed By: #### C PORTILLO, CBCAD, LIPD #### [facility] [address] [place], [place] [id number] Glucose [Mass/Vol] 186 mg/dL High 65-99 [facility] Comment on above: Result Comment: For FASTING Glucose --- ADA reference ranges: Normal 65-99 mg/dl Prediabetes 100-125 Diabetes >/= 126 Performed By: #### C PORTILLO, CBCAD, LIPD #### [facility] [address] [place], [place] [id number] Potassium [Moles/Vol] 3.8 mmol/L Normal 3.5-5.5 [facility] Comment on above: Performed By: #### C PORTILLO, CBCAD, LIPD #### [facility] [address] [place], [place] [id number] Protein [Mass/Vol] 5.7 g/dL Low 6.1-8.1 [facility] [employer] Comment on above: Performed By: #### C PORTILLO, CBCAD, LIPD #### [facility] [address] [place], [place] [id number] Sodium [Moles/Vol] 138 mmol/L Normal 135-146 [facility] [employer] Comment on above: Performed By: #### C PORTILLO, CBCAD, LIPD #### [facility] [address] [place], [place] [id number] Urea nitrogen [Mass/Vol] 23 mg/dL Normal 7-25 [facility] [employer] Comment on above: Performed By: #### C PORTILLO, CBCAD, LIPD #### [facility] [address] [place], [place] [id number] Lipid Panelon 09-23-2021 Cholesterol [Mass/Vol] 155 mg/dL Normal 125-200 [facility] [employer] Comment on above: Result Comment: Low risk < 200mg/dL Borderline risk 201-239 mg/dl High risk > or equal to 240 Performed By: #### C PORTILLO, CBCAD, LIPD #### [facility] [address] [place], [place] [id number] Cholesterol in HDL [Mass/Vol] 44 mg/dL Normal >40 [facility] [employer] Comment on above: Result Comment: High Cardiovascular Risk HDL <40 mg/dL Low Cardiovascular Risk HDL > or equal to 60 mg/dl Performed By: #### C PORTILLO, CBCAD, LIPD #### [facility] [address] [place], [place] [id number] Cholesterol in LDL [Mass/Vol] 71 mg/dL Normal [facility] [employer] Comment on above: Result Comment: LDL ATP III CLASSIFICATION LDL less than 100 mg/dl Optimal LDL 100-129 mg/dl Near or above optimal LDL 130-159 Borderline high LDL 160-189 High LDL greater than 189 mg/dl Very High Performed By: #### C MP, CBCAD, LIPD #### [facility] [address] [facility] [place] [id number] Cholesterol in VLDL [Mass/Vol] 40 mg/dL Normal [facility] [employer] Comment on above: Performed By: #### C MP, CBCAD, LIPD #### [facility] [address] [place], [place] [id number] Cholesterol.total/C holesterol in HDL [Mass ratio] 4 {ratio} Normal [facility] [employer] Comment on above: Performed By: #### C PORTILLO, RAHEL, LIPD #### [facility] [address] [place], [place] [id number] Triglyceride [Mass/Vol] 202 mg/dL High 30-150 [facility] [employer] Comment on above: Result Comment: TRIG ATPIII CLASSIFICATIONS TRIG less than 150 mg/dl Normal TRIG 150-199 mg/dl Borderline High TRIG 200-500 mg/dl High TRIG greather than 500 mg/dl Very High Performed By: #### C PORTILLO, CBCCALLUM, LIPD #### [facility] [address] [place], [place] [id number] Uric Acidon 09-23-2021 URIC 5.5 mg/dL Normal 2.5-7.0 [facility] [employer] Comment on above: Result Comment: Refe rence range change 05/25/2017. Prior reference range F 2.4-5.7mg/dL. M 3.4-7.0 mg/dL. Performed By: #### U NICOLETTE #### [facility] [address] [place], [place] [id number] CNPNon 02-16-2021 CNPN Telephone (RADTSA) BENIGNO CHO ([id number]) 1935 F Date Time Provider Department 02/16/21 Alejo MAHAJAN During your visit today, we recorded the following information about you: Nevin Kaye, RN 02/16/2021 12:44 PM Signed MD Nolan Lorenzana [facility] Nurse Pool Screening mammo and result only call in one year PSS- please schedule as above. GLO- please sign new Seth order. The prior order will be denied because of the breast CA diagnosis. They will not do screening seth if we attach that. Thanks BETY Thomas 02/17/2021 9:09 AM Signed Patient has been scheduled as instructed. Willembessy [place] Allergies As of Date: 02/16/2021 Noted Allergy Reaction BACTRIM (SULFAMETHOXAZOLE) 02/13/2011 4 - Hives KEFLEX (CEPHALEXIN) 02/13/2011 4 - Hives Date Reviewed: 03/21/2017 Reviewed by: Hien Estes) BETY Turner - Fully Assessed Reason for Visit: Future Appointment [256] Primary Visit Diagnosis:Encounter for screening mammogram for malignant neoplasm of breast [Z12.31] Order(s):[facility] SCREENING [[id number]] Order #: [id number] FUTURE Prescriptions as of 02/17/2021 - oxybutynin [...] If no pain relief call 911. - [place]-3 Fatty Acids-Vitamin E (FISH OIL) 1,000 mg [...] Status:Closed by NEVIN KAYE on 02/17/21 Normal [facility] Vital Signs Date Time Vital Sign Value Performing Clinician Kerri kwok 07-25-2024 09:39-0500 Body height 152.4 cm Dony Mcdonald DPM Work Phone: [facility] 07-25-2024 09:39-0500 Body mass index (BMI) [Ratio] 25.97 kg/m2 Dony Mcdonald DPM Work Phone: [facility] 07-25-2024 09:39-0500 Body weight 60.33 kg Christopher Bohach DPM Work Phone: [facility] 07-25-2024 09:39-0500 Diastolic blood pressure 54 mm[Hg] Dony Bohchadd DPM Work Phone: [facility] 07-25-2024 09:39-0500 Heart rate 63 /min Dony Mcdonald DPM Work Phone: [facility] 07-25-2024 09:39-0500 Systolic blood pressure 108 mm[Hg] Dony Mcdonald DPM Work Phone: [facility] 07-22-2024 14:31-0500 Body height 152.4 cm Dustin Dudley MD Work Phone: [facility] 07-22-2024 14:31-0500 Body mass index (BMI) [Ratio] 25.97 kg/m2 Dustin Dudley MD Work Phone: [facility] 07-22-2024 14:31-0500 Body weight 60.33 kg Dustin Dudley MD Work Phone: [facility] 07-22-2024 14:31-0500 Diastolic blood pressure 58 mm[Hg] Dustin Dudley MD Work Phone: [facility] 07-22-2024 14:31-0500 Heart rate 71 /min Dustin Dudley MD Work Phone: [facility] 07-22-2024 14:31-0500 SaO2% (BldA) [Mass fraction] 98 % Dustin Dudley MD Work Phone: [facility] 07-22-2024 14:31-0500 Systolic blood pressure 118 mm[Hg] Dustin Dudley MD Work Phone: [facility] 05-09-2024 09:02-0400 Body height 152.4 cm Christopher Bohach DPM Work Phone: [facility] 05-09-2024 09:02-0400 Body mass index (BMI) [Ratio] 26.37 kg/m2 Christopher Bohach DPM Work Phone: [facility] 05-09-2024 09:02-0400 Body weight 61.24 kg Christopher Bohach DPM Work Phone: [facility] 05-09-2024 09:02-0400 Diastolic blood pressure 51 mm[Hg] Christopher Bohach DPM Work Phone: [facility] 05-09-2024 09:02-0400 Heart rate 65 /min Christopher Bohach DPM Work Phone: [facility] 05-09-2024 09:02-0400 Systolic blood pressure 112 mm[Hg] Christopher Bohach DPM Work Phone: [facility] 01-02-2024 09:39-0400 Body height 152.4 cm [facility] 01-02-2024 09:39-0400 Body mass index (BMI) [Ratio] 26.4 kg/m2 [facility] 01-02-2024 09:39-0400 Body temperature 97.7 [degF] [facility] 01-02-2024 09:39-0400 Body weight 61.4 kg [facility] 01-02-2024 09:39-0400 Diastolic blood pressure 73 mm[Hg] [facility] 01-02-2024 09:39-0400 Heart rate 74 /min [facility] 01-02-2024 09:39-0400 Respiratory rate 18 /min [facility] 01-02-2024 09:39-0400 SaO2% (BldA) [Mass fraction] 97 % [facility] 01-02-2024 09:39-0400 Systolic blood pressure 125 mm[Hg] [facility] Encounters Encounter Date Encounter Type Care Provider Facility Start: 07-25-2024 End: 07-25-2024 Bamboo flowsheet Dony Mcdonald DPM Work Phone: [facility] Start: 07-25-2024 End: 07-25-2024 Bamboo flowsheet Dony Mcdonald DPM Work Phone: [facility] Start: 07-25-2024 End: 07-25-2024 Patient encounter procedure Dony Mcdonald DPM Work Phone: [facility] Comment on above: 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 ([facility]) (Primary Dx); Onychomycosis Start: 07-25-2024 End: 07-25-2024 ambulatory DONY MCDONALD Not Available Start: 07-22-2024 End: 07-22-2024 Office outpatient visit 25 minutes Dustin Dudley MD Work Phone: [facility] Comment on above: Sacroiliitis ([facility]) (Primary Dx); Anxiety; Type 2 diabetes mellitus with diabetic chronic kidney disease, unspecified CKD stage, unspecified whether continuous churn buttermaker insulin use ([facility]); Heart failure, unspecified ([facility]); Leukocytosis, unspecified type; Stage 3a chronic kidney disease (CKD) ([facility]); Vaginal itching Start: 07-22-2024 End: 07-22-2024 ambulatory DUSTIN DUDLEY Not Available Start: 07-22-2024 End: 07-22-2024 Bamboo flowskaitlin Dudley MD Work Phone: [facility] Start: 07-22-2024 End: 07-22-2024 Bamboo flowskaitlin Dudley MD Work Phone: [facility] Start: 06-23-2024 End: 06-23-2024 ambulatory [facility] Start: 05-09-2024 End: 05-09-2024 Bamboo flowsheet Dony Mcdonald DPM Work Phone: [facility] Start: 05-09-2024 End: 05-09-2024 Bamboo flowsheet Dony Mcdonald DPM Work Phone: [facility] Start: 05-09-2024 End: 05-09-2024 ambulatory DONY MCDONALD Not Available Start: 05-09-2024 End: 05-09-2024 Patient encounter procedure Dony Mcdonald DPM Work Phone: [facility] Comment on above: 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 ([facility]) (Primary Dx); Onychomycosis Start: 02-15-2024 End: 02-15-2024 ambulatory MALINI NUNO Not Available Start: 02-07-2024 End: 02-07-2024 ambulatory DONY MCDONALD Not Available Start: 01-28-2024 End: 01-28-2024 ambulatory [facility] Start: 01-22-2024 End: 01-22-2024 ambulatory DUSTIN Liset OCTAVIA Not Available Start: 01-02-2024 End: 01-02-2024 ambulatory [facility] Work Phone: Start: 01-02-2024 End: 01-02-2024 Patient encounter procedure [facility] [place] Work Phone: Start: 11-15-2023 End: 11-15-2023 ambulatory DONY MCDONALD Not Available Start: 10-26-2023 End: 10-26-2023 ambulatory [facility] Start: 09-24-2023 End: 02-15-2024 Patient encounter procedure Dony Mcdonald DPM Work Phone: [facility] Start: 09-24-2023 End: 09-24-2023 ambulatory [facility] Start: 09-24-2023 End: 09-24-2023 ambulatory DUSTIN DUDLEY Not Available Start: 09-06-2023 End: 09-06-2023 ambulatory DONY MCDONALD Not Available Start: 07-26-2023 End: 07-26-2023 ambulatory [facility] Start: 10-31-2022 End: 11-01-[address] DUSTIN DUDLEY Facility:[facility] Start: 06-06-2022 End: 06-07-[address] DUSTIN DUDLEY Facility:[facility] Start: 04-21-2022 Encounter for preprocedural cardiovascular examination KARIME BLACK [facility] Start: 04-20-2022 End: 04-21-2022 ambulatory KARIME BLACK Facility:[facility] Start: 04-20-2022 End: 04-21-2022 Encounter for preprocedural cardiovascular examination KARIME BLACK Facility:[facility] Start: 04-20-2022 Encounter for other preprocedural examination DR WAYNE JENNINGS [facility] Start: 04-18-2022 End: 04-19-[address] WAYNE JENNINGS Facility:[facility] Start: 04-18-2022 End: 04-19-2022 Encounter for other preprocedural examination DR WAYNE JENNINGS Facility:[facility] Procedures Date Procedure Procedure Detail Performing Clinician Start: 07-22-2024 Hemoglobin glycosylated a1c Dustin Dudley MD Work Phone: Start: 11-30-2022 History of total hysterectomy H/O total hysterectomy Dony Mcdonald DPM Work Phone: Plan of Treatment Date Care Activity Detail Author Start: 07-22-2025 Pneumococcal Vaccine : 65+ Years (2 of 2 - PCV) Pneumococcal Vaccine: 65+ Years (2 of 2 - PCV) [facility] Comment on above: Postponed from 11/05 (Patient Refused) Start: 06-25-2025 Glaucoma screening Diabetes: R etinopathy Screening [facility] Start: 01-19-2025 End: 01-19-2025 Patient encounter procedure 01/19/2025 8:00 AM EDT Office Visit [facility] [address] [place] [id number] Dustin Dudley MD [address] [facility] [address] [place] [address] [facility] Start: 10-20-2024 Hemoglobin A1c measurement Diabetes: Hemoglobin A1C [facility] Start: 10-06-2024 End: 10-06-2024 Patient encounter procedure 10/06/2024 9:15 AM EDT Procedure Visit [facility] [address] [place] [address] Dony Mcdonald, DPLiset [address] [place] [address] [facility] Start: 09-23-2024 Medicare Annual Well ness (AWV) Medicare Annual Wellness (AWV) [facility] Start: 09-23-2024 Urine screening for protein Diabetes: Urine Protein Screening [facility] Start: 07-25-2024 End: 07-25-2024 Patient encounter procedure [facility] Comment on above: Arrived Start: 07-22-2024 End: 07-22-2024 Patient encounter procedure 07/22/2024 2:30 PM EST Office Visit [facility] [address] [facility] [address] [place] [address] Dustin Dudley MD [address] [facility] [address] [place] [address] Arrived [facility] Comment on above: Arrived Start: 07-22-2024 End: 07-22-2025 CBC panel - Blood by Automated count CBC Lab Routine Leukocytosis, unspecified type Expected: 07/22/2024 (Approximate), Expires: 07/22/2025 [facility] Work Phone: Comment on above: Expected: 07/22/2024 (Approximate), Expires: 07/22/2025 Start: 07-22-2024 End: 07-22-2025 Comprehensive metabolic 2000 panel - Serum or Plasma Comprehensive metabolic panel Lab Routine Stage 3a chronic kidney disease (CKD) ([facility]) Expected: 07/22/2024 (Approximate), Expires: 07/22/2025 [facility] Comment on above: Expected: 07/22/2024 (Approximate), Expires: 07/22/2025 Start: 07-22-2024 Urine screening for protein Diabetes: Urine Protein Screening [facility] Comment on above: Postponed from 09/19 (Other Medical Reasons) Start: 07-22-2024 End: 07-22-2025 XR Lumbar spine 4 Views XR LUMBAR SPINE AP/LAT/OBLIQUES Imaging Routine Sacroiliitis ([facility]) Expected: 07/22/2024, Expires: 07/22/2025 [facility] Comment on above: Expected: 07/22/2024 , Expires: 07/22/2025 Start: 07-22-2024 End: 07-22-2024 Patient encounter procedure 07/22/2024 8:30 AM EST Office Visit [facility] [address] [facility] [address] [place] [address] Dustin Dudley MD [address] [facility] [address] [place] [address] [facility] Start: 05-31-2024 Pneumococcal Vaccine : 65+ Years (2 of 2 - PCV) Pneumococcal Vaccine: 65+ Years (2 of 2 - PCV) [facility] Comment on above: Postponed from 11/05 (Other Patient Reasons) Start: 04-23-2024 Hemoglobin A1c measurement Diabetes: Hemoglobin A1C [facility] Start: 03-09-2024 Influenza vaccination Influenza Vacc ine (#1) [facility] Start: 11-05-2012 Pneumococcal Vaccine : 65+ Years (2 of 2 - PCV) Pneumococcal Vaccine: 65+ Years (2 of 2 - PCV) [facility] Start: 1953 Urine screening for protein Diabetes: Urine Protein Screening [facility] Immunizations Immunization Date Immunization Notes Care Provider Fa cili 05-02-2023 Influenza, High-dose Seasonal, Quadrivalent, Preservative Free Dony Mcdonald DPM Work Phone: [facility] 05-02-2023 influenza virus vacc ine, unspecified formulation Dony Mcdonald DPM Work Phone: [facility] 04-05-2022 influenza, injectable,quadrivalent, preservative free, pediatric Dony Eliach DPM Work Phone: [facility] 05-23-2021 influenza, high dose seasonal, preservative-free Junioropher Bohach DPM Work Phone: [facility] 05-07-2020 Influenza, Seasonal, Quadrivalent, Adjuvanted Junioropher Bohach DPM Work Phone: [facility] 07-16-2015 tetanus toxoid, redu jennifer diphtheria toxoid, and acellular pertussis vaccine, adsorbed Dony Bohach DPM Work Phone: [facility] 07-09-2013 seasonal influenza, intradermal, preservative free Dony Bohach DPM Work Phone: [facility] 11-06-2011 pneumococcal polysaccharide vaccine, 23 valent Dony Eliach DPM Work Phone: [facility] 07-09-2008 tetanus toxoid, redu jennifer diphtheria toxoid, and acellular pertussis vaccine, adsorbed Dony Eliach DPM Work Phone: [facility] 05-11-2008 zoster vaccine, live Skyler Mcdonald DPM Work Phone: [facility] Payers Date Payer Category Payer Medicaid [employer] MEDICARE A DVANTAGE [id number] 1960 Medicare [id number] 1960 Medicare [id number] 1935 Unknown [id number] 1934 Unknown [id number] [id number] 1934 Unknown [id number] [id number] 1934 Unknown [id number] [id number] 1934 Unknown [id number] 1934 Unknown [id number] [id number] 1934 Unknown [id number] [id number] 1934 Unknown [id number] [id number] 1934 Unknown [id number] [id number] 1934 Unknown [id number] [id number] 1934 Unknown [id number] [id number] 1934 Unknown [id number] [id number] 1934 Unknown [id number] [id number] Medicare [id number] Self-pay Self Pay [id number] Unknown [id number] Conversion Insurance b [id number] Social History Date Type Detail Facility Start: 08-11-2013 End: 11-29-2022 Tobacco smoking status NHIS Never smoked tobacco (finding) [facility] Start: 1935 Sex Assigned At Female F [facility] Start: 11-29-2022 Tobacco use and exposure Smokeless tobacco non-user [facility] Start: 02-15-2024 End: 07-25-2024 Alcoholic beverage intake Lifetime non-drinker (finding) [facility] Start: 09-24-2023 End: 02-15-2024 History of Social function [facility] Start: 09-24-2023 End: 02-15-2024 Tobacco use panel [facility] Start: 11-29-2022 Alcohol Comment Hasn't drank a lcohol in the past 12 months [facility] Start: 1935 Sex assigned at Not on file [facility] Medical Equipment Procedure Code Equipment Code Equipment Origin al Text Equipment Identifier Dates Blood Sugar Diagnostic (Onetouch Ultra Test) strip Start: 01-02-2024 1 Lancet Daily [id number] Start: 04-25-2024 TEST ONCE DAILY DIRECTED*E11.22* [id number] Start: 03-27-2024 Clinical Notes 02-16-2021 to 07-25-2024 Dony Mcdonald DPM - 07/25/2024 9:45 AM Arie Dudley MD - 07/22/2024 2:57 PM Arie Dudley MD - 07/22/2024 2:30 PM Montse Mcdonald DPM - 05/09/2024 9:00 AM EDT Note Date & Type Note Facility 07-25-2024 History of Present illness Narrative Subjective Patient ID: Benigno Cho is a 88 y.o. female who presents for Follow-up (Nailcare). Nail care Location nails on bilateral feet Severity of symptoms mild Onset gradual Status no change Context hard to trim, hard to reach Nails thickened, discolored, pain Relieved by debridement, filing down nails, clipping nails History of ulcers/wounds no Sugar was 211 Aggravated by shoe gear, pressure Last seen date: 02-15-24 Last seen diagnosing provider: Dr. Palencia Hemmer A1C= 6.4 ROS General: Chillsdenies. Feverdenies. Musculoskeletal: muscle weaknessdenies. Bone/joint symptomsdenies. Peripheral Vascular: Edemadenies. Hx of blood clots in legsdenies. Raynaud'sdenies. Rest pain denies. Ulceration of feetdenies. Varicose veinsdenies. Skin: Hyperpigmentationdenies. Nail changesdenies. Rashdenies. Skin lesion(s)denies. Neurologic: Gait abnormalitydenies. Tingling/Numbnessdenies. Current Medications Current Outpatient Medications: ALPRAZolam (Xanax) 0.25 MG tablet, Take 1 tablet (0.25 mg) by mouth every 12 (twelve) hours, Disp: 30 tablet, Rfl: 0 aspirin 81 MG EC tablet, 2 (two) times a day., Disp: , Rfl: baclofen (Lioresal) 5 MG tablet, Take 1 tablet (5 mg) by mouth in the morning and 1 tablet (5 mg) in the evening and 1 tablet (5 mg) before bedtime., Disp: 90 tablet, Rfl: 0 benazepril (Lotensin) 10 MG tablet, Take 1 tablet (10 mg) by mouth 1 (one) time each day at the same time, Disp: 360 tablet, Rfl: 0 cholecalciferol (D3-5) 5,000 Units tablet, Daily., Disp: , Rfl: coenzyme Q-10 200 MG capsule, 1 (one) time each day at the same time., Disp: , Rfl: cycloSPORINE (Restasis) 0.05 % ophthalmic emulsion, , Disp: , Rfl: fluconazole (Diflucan) 100 MG tablet, Take 1 tablet (100 mg) by mouth Daily for 3 days, Disp: 3 tablet, Rfl: 0 Januvia 100 MG tablet, TAKE 1 TABLET DAILY, Disp: 100 tablet, Rfl: 3 Jardiance 10 MG, TAKE 1 TABLET BY MOUTH IN THE MORNING FOR 14 DAYS, Disp: , Rfl: Lancets misc, 1 Lancet Daily, Disp: 100 each, Rfl: 11 lidocaine (Lidoderm) 5 % patch, Apply 1 patch over 12 hours topically Daily Apply to painful area 12 hours per day, remove for 12 hours., Disp: 30 patch, Rfl: 0 magnesium oxide (Mag-Ox) 400 MG tablet, Daily., Disp: , Rfl: metoprolol succinate XL (Toprol-XL) 25 MG 24 hr tablet, TAKE 1 TABLET BY MOUTH IN THE MORNING FOR 14 DAYS*DO NOT CRUSH OR CHEW*, Disp: , Rfl: OneTouch Ultra test strip, TEST ONCE DAILY DIRECTED*E11.22*, Disp: 100 strip, Rfl: 3 simvastatin (Zocor) 20 MG tablet, Take 1 tablet (20 mg) by mouth at bedtime, Disp: 360 tablet, Rfl: 0 spironolactone (Aldactone) 25 MG tablet, Take by mouth Daily Take 1/2 daily., Disp: , Rfl: nitroglycerin (Nitrostat) 0.4 MG SL tablet, Place 1 tablet (0.4 mg) under the tongue every 5 (five) minutes if needed for chest pain, Disp: 15 tablet, Rfl: 12 Allergies Cephalexin, Sulfa antibiotics, Sulfamethoxazole, Sulfamethoxazole-trimethoprim, and Trimethoprim Medical Histories Past Medical History: Diagnosis Date Abnormal ankle brachial index (MOON) 05/26/2021 left Abnormal Doppler ultrasound of carotid artery 09/29/2020 show 0-49% stenosis ICA Angina pectoris ([facility]) Ankle pain, left Breast cancer ([facility]) 2007 Carotid artery disease ([facility]) 2009 DDD (degenerative disc disease), lumbar 02/06/2021 MRI Multilevel moderate-marked central canal and foraminal narrowing secondary to DDD and facet arthropathy. 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 Severe Gallbladder disease 1998 Gout H/O heart artery stent 2007 hx of cardiac stents (7) H/O lumpectomy 1998 History of lumpectomy 1998 HTN (hypertension) (CMS/HCC) Hyperlipidemia (CMS/HCC) Malignant neoplasm of female breast (CMS/HCC) 08/11/2015 Melanoma (CMS/[facility]) 2008 Osteopenia 03/26/2018 Dexa Wellness examination Wellness Screening Surgical Histories Past Surgical History: Procedure Laterality Date ANKLE SPLINT AIR CAST 2008 BREAST BIOPSY 1997 CARDIAC CATHETERIZATION CARPAL TUNNEL RELEASE 2000 CARPAL TUNNEL RELEASE Left 05/05/2022 CATARACT EXTRACTION 2006 CHOLECYSTECTOMY COLONOSCOPY CORONARY ANGIOPLASTY WITH STENT PLACEMENT 2006 CYSTOSCOPY 10/2014 EYE EXAM 2013 HERNIA REPAIR 1998 HIP ARTHROPLASTY 1996 HYSTERECTOMY 2010 OTHER SURGICAL HISTORY 07/19/2015 Right IF exc of mass 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 FOOT EXAM: Date of Last Foot Exam 09/06/23 Nail Pathology: Left Foot: 1 (great toe)Long, Thick, Crumbly, Deformed, Discolored, Brittle, Dystrophic 4mm. 2Long, Thick, Crumbly, Deformed, Discolored, Brittle, [id number]. 3Long, Thick. 4Long, Thick, Crumbly, Deformed, Discolored, Brittle, [id number]. 5Long, Thick, Crumbly, Deformed, Discolored, Brittle, [id number]. Nail Pathology: Right Foot: 1 (great toe)Long, Thick, Crumbly, Deformed, Discolored, Brittle, Dystrophic 4mm. 2Long, Thick, Crumbly, Deformed, Discolored, Brittle, [id number]. 3Normal, . 4Long, Thick, Crumbly, Deformed, Discolored, Brittle, [id number]. 5Long, Thick, Crumbly, Deformed, Discolored, Brittle, Dystrophic.3mm Modifier: -Q9, Hair growth changes (decreased or absence) , Skin color changes (rubor or redness) , Skin texture changes (thin or shiny) , Edema , Parastesias. Orthopedic: DEFORMITIES:Hallux abductovalgus , Hammer toe , 2 , bilateral. no pain on exam. Ankle / Foot: Good strength and ROM bilat, no radha or legs tenderness. neg homans sign. Dermatologic: atrophic skin with neg digital hair and hyperpigmentation-. Neurologic: Vibratory sensation, shapr/dull and light touch are decreased to the plantar foot bilateral up to midfoot left more than right. Vascular: palp pulses bilat and good color and refill digits. minimal edema. Assessment/Plan DM neuropathy, mycotic nails Nails: all thick and dystrophic nails debrided of all affected and loose material All of the nondystrophic nails were debrided documented in this encounter [facility] 07-22-2024 History of Present illness Narrative Associated Problem(s): Sacroiliitis (CMS/HCC) Will do an XR Images from the original note were not included. HPI Diabetes Additional comments: Last A1c was 6/7 Last edited by Belinda Sahu MA on 07/22/2024 2:19 PM. Subjective Patient ID: Benigno Cho is a 88 y.o. female who presents for Diabetes (Last A1c was 6/7) and Hypertension. Pt was given jardiance back in september of 2023 for her heart , and told it may cause vaginal itching which it has and told her PCP can take care of that problem . The itching started the same time she started the medication , it does come and go and she would like to know if there is a pill she could take to help her with this problem No Loss of bowel or bladder Diabetes She presents for her follow-up diabetic visit. She has type 2 diabetes mellitus. No MedicAlert identification noted. The initial diagnosis of diabetes was made 5 years ago. There are no hypoglycemic associated symptoms. Pertinent negatives for hypoglycemia include no confusion, dizziness, nervousness/anxiousness, speech difficulty or tremors. There are no diabetic associated symptoms. Pertinent negatives for diabetes include no chest pain and no fatigue. There are no hypoglycemic complications. There are no diabetic complications. Risk factors for coronary artery disease include diabetes mellitus, hypertension and dyslipidemia. Current diabetic treatment includes oral agent (monotherapy). She is compliant with treatment all of the time. She is following a diabetic diet. Meal planning includes avoidance of concentrated sweets. She participates in exercise daily. There is no change in her home blood glucose trend. An DONNA inhibitor/angiotensin II receptor amanda is being taken. She does not see a policy change clerk.Eye exam is current. Hypertension Pertinent negatives include no chest pain. Current Outpatient Medications on File Prior to Visit Medication Sig Dispense Refill aspirin 81 MG EC tablet 2 (two) times a day. benazepril (Lotensin) 10 MG tablet Take 1 tablet (10 mg) by mouth 1 (one) time each day at the same time 360 tablet 0 cholecalciferol (D3-5) 5,000 Units tablet Daily. coenzyme Q-10 200 MG capsule 1 (one) time each day at the same time. cycloSPORINE (Restasis) 0.05 % ophthalmic emulsion Januvia 100 MG tablet TAKE 1 TABLET DAILY 100 tablet 3 Jardiance 10 MG TAKE 1 TABLET BY MOUTH IN THE MORNING FOR 14 DAYS Lancets misc 1 Lancet Daily 100 each 11 magnesium oxide (Mag-Ox) 400 MG tablet Daily. metoprolol succinate XL (Toprol-XL) 25 MG 24 hr tablet TAKE 1 TABLET BY MOUTH IN THE MORNING FOR 14 DAYS*DO NOT CRUSH OR CHEW* nitroglycerin (Nitrostat) 0.[address] 1 tablet (0.4 mg) under the tongue every 5 (five) minutes if needed for chest pain 15 tablet 12 OneTouch Ultra test strip TEST ONCE DAILY DIRECTED*E11.22* 100 strip 3 simvastatin (Zocor) 20 MG tablet Take 1 tablet (20 mg) by mouth at bedtime 360 tablet 0 spironolactone (Aldactone) 25 MG tablet Take by mouth Daily Take 1/2 daily. [DISCONTINUED] ALPRAZolam (Xanax) 0.25 MG tablet Take 1 tablet (0.25 mg) by mouth every 12 (twelve) hours 30 tablet 0 [DISCONTINUED] calcium citrate (Calcitrate) 950 (200 Ca) MG tablet Take 1,000 mg by mouth in the morning and 1,000 mg before bedtime. [DISCONTINUED] oxybutynin (Ditropan) 5 MG tablet TAKE ONE-HALF (1/2) TABLET TWICE A DAY 100 tablet 3 No current facility-administered medications on file prior to visit. I have reviewed and reconciled the history and medication list with the patient today. Allergies Allergen Reactions Cephalexin Hives and Unknown Sulfa Antibiotics Other Reaction(s): Unknown Reaction Sulfamethoxazole Hives and Unknown Sulfamethoxazole-Trimethoprim Trimethoprim Unknown Social History Tobacco Use Smoking status: Never Smokeless tobacco: Never Vaping Use Vaping status: Never Used Substance Use Topics Alcohol use: Never Comment: Hasn't drank alcohol in the past 12 months Drug use: Never Family History Problem Relation Name Age of Onset Diabetes Mother Hypertension Mother Heart disease Mother Hypertension Father Stroke Father Past Medical History: Diagnosis Date Abnormal ankle brachial index (MOON) 05/26/2021 left Abnormal Doppler ultrasound of carotid artery 09/29/2020 show 0-49% stenosis ICA Angina pectoris ([facility]) Ankle pain, left Breast cancer ([facility]) 2007 Carotid artery disease ([facility]) 2009 DDD (degenerative disc disease), lumbar 02/06/2021 MRI Multilevel moderate-marked central canal and foraminal narrowing secondary to DDD and facet arthropathy. 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 Severe Gallbladder disease 1998 Gout H/O heart artery stent 2007 hx of cardiac stents (7) H/O lumpectomy 1998 History of lumpectomy 1998 HTN (hypertension) ([facility]) Hyperlipidemia ([facility]) Malignant neoplasm of female breast ([facility]) 08/11/2015 Melanoma ([facility]) 2008 Osteopenia 03/26/2018 Dexa Wellness examination Wellness Screening Past Surgical History: Procedure Laterality Date ANKLE SPLINT AIR CAST 2009 BREAST BIOPSY 1998 CARDIAC CATHETERIZATION CARPAL TUNNEL RELEASE 2000 CARPAL TUNNEL RELEASE Left 05/05/2022 CATARACT EXTRACTION 2006 CHOLECYSTECTOMY COLONOSCOPY CORONARY ANGIOPLASTY WITH STENT PLACEMENT 2006 CYSTOSCOPY 10/2014 EYE EXAM 2013 HERNIA REPAIR 1998 HIP ARTHROPLASTY 1996 HYSTERECTOMY 2010 OTHER SURGICAL HISTORY 07/19/2015 Right IF exc of mass SC BONE MARROW HARVEST TRANSPLANTATION ALLOGENEIC 03/2017 SC EXC TUMOR SOFT TISS BACK/FLANK SUBFASCIAL 5 CM/> Right 07/19/2015 SC MEDICATION MANAGEMENT 2009 vicodin TUBAL LIGATION Bilateral 1978 Visit Vitals BP 118/58 Pulse 71 Ht 5' Wt 133 lb SpO2 98% BMI 25.97 kg/m Smoking Status Never BSA 1.6 m Review of Systems Constitutional: Negative for fatigue. Cardiovascular: Negative for chest pain. Neurological: Negative for dizziness, tremors and speech difficulty. Psychiatric/Behavioral: Negative for confusion. The patient is not nervous/anxious. Objective Physical Exam Constitutional: General: She is not in acute distress. Appearance: Normal appearance. She is well-developed. HENT: Head: Normocephalic and atraumatic. Eyes: General: No scleral icterus. Conjunctiva/sclera: Conjunctivae normal. Cardiovascular: Rate and Rhythm: Normal rate and regular rhythm. Heart sounds: Normal heart sounds. No murmur heard. Pulmonary: Effort: Pulmonary effort is normal. No respiratory distress. Breath sounds: Normal breath sounds. No wheezing, rhonchi or rales. Abdominal: Tenderness: There is no right CVA tenderness or left CVA tenderness. Musculoskeletal: Back: Comments: POP to right saroiliac Skin: General: Skin is warm and dry. Neurological: General: No focal deficit present. Mental Status: She is alert and oriented to person, place, and time. Gait: Gait abnormal. Psychiatric: Mood and Affect: Mood normal. Behavior: Behavior normal. Office Visit on 07/22/2024 Component Date Value Ref Range Status Hemoglobin A1C 07/22/2024 6.4 Final Assessment/Plan Problem List Items Addressed This Visit Stage 3a chronic kidney disease (CKD) ([facility]) Relevant Orders Comprehensive metabolic panel Type 2 diabetes mellitus with diabetic chronic kidney disease ([facility]) Relevant Orders POCT Glycated hemoglobin, total (Completed) Anxiety Relevant Medications ALPRAZolam (Xanax) 0.25 MG tablet Sacroiliitis (CMS/HCC) - Primary Will do an XR Relevant Medications baclofen (Lioresal) 5 MG tablet lidocaine (Lidoderm) 5 % patch Other Relevant Orders XR LUMBAR SPINE AP/LAT/OBLIQUES Leukocytosis Relevant Orders CBC Other Visit Diagnoses Heart failure, unspecified ([facility]) No follow-ups on file. documented in this encounter [facility] 06-23-2024 Note [place] [facility] - [facility] Subjective Benigno Cho is a 88 y.o. year old female patient being seen for 6 mo follow up systolic heart failure, CAD, and hypertension. She had routine echo last week, and routine labs with lipid panel back in Feb 2024. Denies chest pain, SOB, palpitations, and lightheadedness/syncope. Patient Active Problem List Diagnosis Chest discomfort Coronary arteriosclerosis Decreased estrogen level Diabetic renal disease ([facility]/HCC) Female stress incontinence Gout, unspecified H/O Malignant melanoma Hypertension due to endocrine disorder Hypertensive disorder Hypertriglyceridemia Lipoprotein deficiency disorder Malignant neoplasm of female breast ([facility]) Localized, primary osteoarthritis of hand Onychomycosis due to dermatophyte Osteoarthrosis Osteopenia of left hip PVD (peripheral vascular disease) ([facility]) Abnormal CT of the abdomen Abnormality of rectum Acquired hallux valgus Acquired hammer toe of left foot Adjustment disorder with anxiety Allergic rhinitis Anxiety Arrest of bone development or growth 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 Carpal tunnel syndrome of left wrist Esophageal reflux Gouty arthritis Polyneuropathy due to type 2 diabetes mellitus ([facility]) Pain in limb Pain in joint involving ankle and foot Myopathy Myalgia Seasonal allergies Stage 3a chronic kidney disease ([facility]) Status post hysterectomy Type 2 diabetes mellitus with diabetic chronic kidney disease ([facility]) Uterovaginal prolapse Acute cystitis without hematuria Heart failure with reduced ejection fraction ([facility]) Medicare annual wellness visit, subsequent Other pruritus [...] CAD as follows: She had acute inferior IL in 2004 treated by PCI to the [...] was dehydrated. Her spironolactone was stopped. At visit of 10/26/2023 I stopped hydrochlorothiazide and resume spironolactone at 12.5 mg once daily. A follow-up echocardiogram December 2023 showed ejection fraction slightly improved to 35 to 40%. A follow-up echocardiogram June 2024 showed further improvement of ejection fraction to 40%. Today she reports that she has been well without any symptoms of shortness of breath or chest pain. She feels good. She has no issues. Review of Systems Musculoskeletal: Positive for arthritis, back pain and joint pain. All other systems reviewed and are negative. Objective Visit Vitals BP 118/64 (BP Location: Right arm, Patient Position: Sitting) Pulse 68 Ht 1.499 m (4' 11 ) Wt 60.8 kg (134 lb) SpO2 96% BMI 27.06 kg/m??? Smoking Status Never BSA 1.59 m??? Physical Exam Constitutional: Appearance: She is well-developed. She is not ill-appearing. HENT: Head: Normocephalic and atraumatic. Nose: Nose normal. Eyes: General: No scleral icterus. Pupils: Pupils are equal, round, and reactive to light. Neck: Thyroid: No thyromegaly. Vascular: No JVD. Cardiovascular (more content not included)... [facility] 05-09-2024 History of Present illness Narrative Subjective Patient ID: Benigno Cho is a 88 y.o. female who presents for Follow-up ([facility]ail[facility]). Nail care Location nails on bilateral feet Severity of symptoms mild Onset gradual Status no change Context hard to trim, hard to reach Nails thickened, discolored, pain Relieved by debridement, filing down nails, clipping nails History of ulcers/wounds no Sugar was 132 Aggravated by shoe gear, pressure Last seen date: 01-22-24 Last seen diagnosing provider: Dr. Octavia GODWIN General: Chillsdenies. Feverdenies. Musculoskeletal: muscle weaknessdenies. Bone/joint symptomsdenies. Peripheral Vascular: Edemadenies. Hx of blood clots in legsdenies. Raynaud'sdenies. Rest pain denies. Ulceration of feetdenies. Varicose veinsdenies. Skin: Hyperpigmentationdenies. Nail changesdenies. Rashdenies. Skin lesion(s)denies. Neurologic: Gait abnormalitydenies. Tingling/Numbnessdenies. Current Medications Current Outpatient Medications: ALPRAZolam (Xanax) 0.25 MG tablet, Take 1 tablet (0.25 mg) by mouth every 12 (twelve) hours, Disp: 30 tablet, Rfl: 0 aspirin 81 MG EC tablet, 2 (two) times a day., Disp: , Rfl: benazepril (Lotensin) 10 MG tablet, Take 1 tablet (10 mg) by mouth 1 (one) time each day at the same time, Disp: 360 tablet, Rfl: 0 calcium citrate (Calcitrate) 950 (200 Ca) MG tablet, Take 1,000 mg by mouth in the morning and 1,000 mg before bedtime., Disp: , Rfl: cholecalciferol (D3-5) 5,000 Units tablet, Daily., Disp: , Rfl: coenzyme Q-10 200 MG capsule, 1 (one) time each day at the same time., Disp: , Rfl: cycloSPORINE (Restasis) 0.05 % ophthalmic emulsion, , Disp: , Rfl: Januvia 100 MG tablet, TAKE 1 TABLET DAILY, Disp: 100 tablet, Rfl: 3 Jardiance 10 MG, TAKE 1 TABLET BY MOUTH IN THE MORNING FOR 14 DAYS, Disp: , Rfl: Lancets misc, 1 Lancet Daily, Disp: 100 each, Rfl: 11 magnesium oxide (Mag-Ox) 400 MG tablet, Daily., Disp: , Rfl: metoprolol succinate XL (Toprol-XL) 25 MG 24 hr tablet, TAKE 1 TABLET BY MOUTH IN THE MORNING FOR 14 DAYS*DO NOT CRUSH OR CHEW*, Disp: , Rfl: nitroglycerin (Nitrostat) 0.4 MG SL tablet, Place 1 tablet (0.4 mg) under the tongue every 5 (five) minutes if needed for chest pain, Disp: 15 tablet, Rfl: 12 OneTouch Ultra test strip, TEST ONCE DAILY DIRECTED*E11.22*, Disp: 100 strip, Rfl: 3 oxybutynin (Ditropan) 5 MG tablet, TAKE ONE-HALF (1/2) TABLET TWICE A DAY, Disp: 100 tablet, Rfl: 3 simvastatin (Zocor) 20 MG tablet, Take 1 tablet (20 mg) by mouth at bedtime, Disp: 360 tablet, Rfl: 0 spironolactone (Aldactone) 25 MG tablet, Take by mouth Daily Take 1/2 daily., Disp: , Rfl: Allergies Cephalexin, Sulfa antibiotics, Sulfamethoxazole, Sulfamethoxazole-trimethoprim, and Trimethoprim Medical Histories Past Medical History: Diagnosis Date Abnormal ankle brachial index (MOON) 05/26/2021 left Abnormal Doppler ultrasound of carotid artery 09/29/2020 show 0-49% stenosis ICA Angina pectoris ([facility]) Ankle pain, left Breast cancer ([facility]) 2007 Carotid artery disease ([facility]) 2009 DDD (degenerative disc disease), lumbar 02/06/2021 MRI Multilevel moderate-marked central canal and foraminal narrowing secondary to DDD and facet arthropathy. 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 Severe Gallbladder disease 1998 Gout H/O heart artery stent 2007 hx of cardiac stents (7) H/O lumpectomy 1998 History of lumpectomy 1998 HTN (hypertension) (CMS/HCC) Hyperlipidemia ([facility]) Malignant neoplasm of female breast ([facility]) 08/11/2015 Melanoma ([facility]) 2008 Osteopenia 03/26/2018 Dexa Wellness examination Wellness Screening Surgical Histories Past Surgical History: Procedure Laterality Date ANKLE SPLINT AIR CAST 2009 BREAST BIOPSY 1998 CARDIAC CATHETERIZATION CARPAL TUNNEL RELEASE 2000 CARPAL TUNNEL RELEASE Left 05/05/2022 CATARACT EXTRACTION 2006 CHOLECYSTECTOMY COLONOSCOPY CORONARY ANGIOPLASTY WITH STENT PLACEMENT 2006 CYSTOSCOPY 10/2014 EYE EXAM 2013 HERNIA REPAIR 1998 HIP ARTHROPLASTY 1996 HYSTERECTOMY 2010 OTHER SURGICAL HISTORY 07/19/2015 Right IF exc of mass 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 FOOT EXAM: Date of Last Foot Exam 09/06/23 Nail Pathology: Left Foot: 1 (great toe)Long, Thick, Crumbly, Deformed, Discolored, Brittle, Dystrophic 4mm. 2Long, Thick, Crumbly, Deformed, Discolored, Brittle, [id number]. 3Long, Thick. 4Long, Thick, Crumbly, Deformed, Discolored, Brittle, [id number]. 5Long, Thick, Crumbly, Deformed, Discolored, Brittle, [id number]. Nail Pathology: Right Foot: 1 (great toe)Long, Thick, Crumbly, Deformed, Discolored, Brittle, Dystrophic 4mm. 2Long, Thick, Crumbly, Deformed, Discolored, Brittle, [id number]. 3Normal, . 4Long, Thick, Crumbly, Deformed, Discolored, Brittle, [id number]. 5Long, Thick, Crumbly, Deformed, Discolored, Brittle, Dystrophic.3mm Modifier: -Q9, Hair growth changes (decreased or absence) , Skin color changes (rubor or redness) , Skin texture changes (thin or shiny) , Edema , Parastesias. Orthopedic: DEFORMITIES:Hallux abductovalgus , Hammer toe , 2 , bilateral. no pain on exam. Ankle / Foot: Good strength and ROM bilat, no radha or legs tenderness. neg homans sign. Dermatologic: atrophic skin with neg digital hair and hyperpigmentation-. Neurologic: Vibratory sensation, shapr/dull and light touch are decreased to the plantar foot bilateral up to midfoot left more than right. Vascular: palp pulses bilat and good color and refill digits. minimal edema. Assessment/Plan DM neuropathy, mycotic nails Nails: all thick and dystrophic nails debrided of all affected and loose material All of the nondystrophic nails were debrided documented in this encounter [place] [id number] Note [place] [facility] - [facility] Subjective Benigno Cho is a [...] arteriosclerosis Decreased estrogen level Diabetic renal disease ([facility]) Female stress incontinence Gout, unspecified H/O Malignant melanoma Hypertension due to endocrine disorder Hypertensive disorder Hypertriglyceridemia Lipoprotein deficiency disorder Malignant neoplasm of female breast ([facility]) Localized, primary osteoarthritis of hand Onychomycosis due to dermatophyte Osteoarthrosis Osteopenia of left hip PVD (peripheral vascular disease) ([facility]) Abnormal CT of the abdomen Abnormality of rectum Acquired hallux valgus Acquired hammer toe of left foot Adjustment disorder with anxiety Allergic rhinitis Anxiety Arrest of bone development or growth 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 Carpal tunnel syndrome of left wrist Esophageal reflux Gouty arthritis Polyneuropathy due to type 2 diabetes mellitus ([facility]) Pain in limb Pain in joint involving ankle and foot Myopathy Myalgia Seasonal allergies Stage 3a chronic kidney disease ([facility]CC) Status post hysterectomy Type 2 diabetes mellitus with diabetic chronic kidney disease ([facility]) Uterovaginal prolapse Acute cystitis without hematuria Heart failure with reduced ejection fraction ([facility]) Medicare annual wellness visit, subsequent Other pruritus [...] CAD as follows: She had acute inferior [place] in 2004 treated by PCI to the [...] arm, Patient Posit (more content not included)... [facility] 10-26-2023 [place] [facility] Subjective Benigno Cho is a [...] CAD as follows: She had acute inferior IL in 2004 treated by PCI to the [...] no abdominal tenderness. (more content not included)... [facility] 09-24-2023 [place] [facility] [place] [facility] Subjective Benigno Cho is a 88 y.o. year old female patient being seen for follow up echo and to discuss possible heart cath per Dr. Zuniga. She had CBC, CMP, and lipid panel drawn this morning at [facility]. Patient still denies chest pain, [...] CAD as follows: She had acute inferior IL in 2004 treated by PCI to the [...] Rfl: calcium ci (more content not included)... [facility] 07-26-2023 [place] [facility] [place] [facility] Subjective Benigno Cho is a [...] CAD as follows: She had acute inferior [place] in 2004 treated by PCI to the [...] nitroglycerin (Nitrostat) 0.4 (more content not included)... [facility] 02-16-2021 Note HNO ID: [id number] Author: Alejo Mahajan MD Service: ? Author [...] Time Spent: 4 minutes Alejo Mahajan MD [facility] Evaluation note Diagnosis Onset Date Poison dylon dermatitis [facility] Work Phone: Evaluation note* Diagnosis Anxiety- Primary Anxiety state, unspecified Type 2 diabetes mellitus with chronic kidney disease, with long-term current use of insulin, unspecified CKD stage (CMS/HCC) Adjustment disorder with anxiety (CMS/HCC) Adjustment disorder with anxiety Coronary arteriosclerosis (CMS/HCC)- Primary Coronary atherosclerosis of unspecified type of vessel, [place] or graft Anxiety Anxiety state, unspecified Hypertension, unspecified type (CMS/HCC) Type 2 diabetes mellitus with chronic kidney disease, with long-term current use of insulin, unspecified CKD stage (CMS/HCC) Routine general medical examination at health care facility- Primary Routine general medical examination at a health care facility Abnormal glucose tolerance test Impaired glucose tolerance test Benign essential hypertension (CMS/HCC) Essential hypertension, benign Medicare annual wellness visit, subsequent Type 2 diabetes mellitus with chronic kidney disease, with long-term current use of insulin, unspecified CKD stage (CMS/HCC) Hypertriglyceridemia (CMS/HCC) Pure hyperglyceridemia Chronic kidney disease, stage 3a (N18.31) Type 2 diabetes mellitus with diabetic peripheral angiopathy without gangrene, without long-term current use of insulin (CMS/HCC) Anxiety Anxiety state, unspecified 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CMS/HCC) Heart failure with reduced ejection fraction (CMS/HCC) Other pruritus- Primary Hypertension, unspecified type (CMS/HCC) Vaginal itching Pruritus of genital organs Type 2 diabetes mellitus with chronic kidney disease, with long-term current use of insulin, unspecified CKD stage (CMS/HCC) Acute cystitis without hematuria 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CMS/HCC) Diabetic polyneuropathy associated with type 2 diabetes mellitus ([facility]/HCC)- Primary Onychomycosis Dermatophytosis of nail documented in this encounter [facility] HealthcareEvaluation note* Diagnosis Anxiety- Primary Anxiety state, unspecified Type 2 diabetes mellitus with chronic kidney disease, with long-term current use of insulin, unspecified CKD stage (CMS/HCC) Adjustment disorder with anxiety ([facility]/HCC) Adjustment disorder with anxiety Coronary arteriosclerosis ([facility])- Primary Coronary atherosclerosis of unspecified type of vessel, [place] or graft Anxiety Anxiety state, unspecified Hypertension, unspecified type (CMS/HCC) Type 2 diabetes mellitus with chronic kidney disease, with long-term current use of insulin, unspecified CKD stage (CMS/HCC) Routine general medical examination at health care facility- Primary Routine general medical examination at a health care facility Abnormal glucose tolerance test Impaired glucose tolerance test Benign essential hypertension (CMS/HCC) Essential hypertension, benign Medicare annual wellness visit, subsequent Type 2 diabetes mellitus with chronic kidney disease, with long-term current use of insulin, unspecified CKD stage (CMS/HCC) Hypertriglyceridemia (CMS/HCC) Pure hyperglyceridemia Chronic kidney disease, stage 3a (N18.31) Type 2 diabetes mellitus with diabetic peripheral angiopathy without gangrene, without long-term current use of insulin ([facility]/HCC) Anxiety Anxiety state, unspecified 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CMS/HCC) Heart failure with reduced ejection fraction (CMS/HCC) Other pruritus- Primary Hypertension, unspecified type (CMS/HCC) Vaginal itching Pruritus of genital organs Type 2 diabetes mellitus with chronic kidney disease, with long-term current use of insulin, unspecified CKD stage ([facility]) Acute cystitis without hematuria 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[facility]) Sacroiliitis ([facility])- Primary Sacroiliitis, not elsewhere classified Anxiety Anxiety state, unspecified Type 2 diabetes mellitus with diabetic chronic kidney disease, unspecified CKD stage, unspecified whether skilled nursing insulin use ([facility]) Heart failure, unspecified ([facility]) Heart failure, unspecified Leukocytosis, unspecified type Stage 3a chronic kidney disease (CKD) ([facility]) Vaginal itching Pruritus of genital organs documented in this encounter [facility] HealthcareEvaluation note* Diagnosis Anxiety- Primary Anxiety state, unspecified Type 2 diabetes mellitus with chronic kidney disease, with long-term current use of insulin, unspecified CKD stage ([facility]) Adjustment disorder with anxiety ([facility]) Adjustment disorder with anxiety Coronary arteriosclerosis ([facility])- Primary Coronary atherosclerosis of unspecified type of vessel, [place] or graft Anxiety Anxiety state, unspecified Hypertension, unspecified type ([facility]) Type 2 diabetes mellitus with chronic kidney disease, with long-term current use of insulin, unspecified CKD stage ([facility]) Routine general medical examination at health care facility- Primary Routine general medical examination at a health care facility Abnormal glucose tolerance test Impaired glucose tolerance test Benign essential hypertension ([facility]) Essential hypertension, benign Medicare annual wellness visit, subsequent Type 2 diabetes mellitus with chronic kidney disease, with long-term current use of insulin, unspecified CKD stage ([facility]) Hypertriglyceridemia ([facility]) Pure hyperglyceridemia Chronic kidney disease, stage 3a (N18.31) Type 2 diabetes mellitus with diabetic peripheral angiopathy without gangrene, without long-term current use of insulin ([facility]) Anxiety Anxiety state, unspecified 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[facility]) Heart failure with reduced ejection fraction ([facility]) Other pruritus- Primary Hypertension, unspecified type ([facility]) Vaginal itching Pruritus of genital organs Type 2 diabetes mellitus with chronic kidney disease, with long-term current use of insulin, unspecified CKD stage ([facility]) Acute cystitis without hematuria 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[facility]) Sacroiliitis ([facility])- Primary Sacroiliitis, not elsewhere classified Anxiety Anxiety state, unspecified Type 2 diabetes mellitus with diabetic chronic kidney disease, unspecified CKD stage, unspecified whether continuous churn buttermaker insulin use ([facility]) Heart failure, unspecified ([facility]) Heart failure, unspecified Leukocytosis, unspecified type Stage 3a chronic kidney disease (CKD) ([facility]) Vaginal itching Pruritus of genital organs Diabetic polyneuropathy associated with type 2 diabetes mellitus ([facility])- Primary Onychomycosis Dermatophytosis of nail documented in this encounter [facility] Summary Purpose Family History No Family History [...] section and content) DATE CREATED AUTHOR 08/10/2021 [facility] DATE CREATED AUTHOR AUTHOR'S ORGANIZ ATION 09/24/2021 [facility] dical Specialist DATE CREATED AUTHOR AUTHOR'S ORGANIZ ATION 11/04/2022 [facility] DATE CREATED AUTHOR AUTHOR'S ORGANIZ ATION 06/25/2024 [facility] DATE CREATED AUTHOR AUTHOR'S ORGANIZ ATION 07/25/2024 [facility] dical Specialists [facility] Care Teams (unrecognized sec tion and content) Team Status: Active Member Role Status Dates PHYSICIAN NO FAMILY Primary Care Provider Active Team Status: Inactive Member Role Status Dates PHYSICIAN NO FAMILY Primary Care Provider Active Start: January 02, 2024 End: January 02, 2024 Brook Malone APRN Attending Provider Active S tart: January 02, 2024 End: January 02, 2024 Remote Sensing Advisor Relationship Specialty Start Date End Date Dustin Dudley MD [address] [facility] [address] [place] [address] PCP - [employer] 07/09/20 Dustin Dudley MD [address] [facility] [address] [place] [address] PCP - General Family Medicine 09/06/23 Remote Sensing Advisor Relationship Specialty Start Date End Date Dustin Dudley MD [address] [place] [address] PCP - [employer] 07/09/20 Dustin Dudley MD [address] [place] [address] PCP - General Family Medicine 09/06/23 Remote Sensing Advisor Relationship Specialty Start Date End Date Dustin Dudley MD [address] [place] [address] PCP - [employer] 07/09/20 Dustin Dudley MD [address] [place] [address] PCP - General Family Medicine 09/06/23 Remote Sensing Advisor Relationship Specialty Start Date End Date Dustin Dudley MD [address] [place] [address] PCP - [employer] 07/09/20 Dustin Dudley MD [address] [place] [address] PCP - General Family Medicine 09/06/23 Remote Sensing Advisor Relationship Specialty Start Date End Date Dustin Dudley MD [address] [place] [address] PCP - [employer] 07/09/20 Dustin Dudley MD [address] [place] [address] PCP - General Family Medicine 09/06/23 Remote Sensing Advisor Relationship Specialty Start Date End Date Dustin Dudley MD [address] [place] [address] PCP - [employer] 07/09/20 Dustin Dudley MD [address] [facility] [address] [place] [address] PCP - General Family Medicine 09/06/23 Goals (unrecognized section and content) Goals may be documented in a n alternate section Reason for Visit (unrecogniz ed section and content) Reason Comments Follow-up Nailcare Reason Comments Diabetes Last A1c was 6/7 Hypertension FOR RECORDS PERTAINING TO PATIENTS WHO ARE [...] BE BASED ON THE PRIMARY CLINICAL RECORDS. [employer] [facility]. provides no warranty or guarantee of the accuracy or completeness of information in this document.
--- NOTE | 2024-07-28 09:24 | XR_ITS ---
[address] [address] Patient Name: BENIGNO CHO MRN: [id number] date: 1935 Sex: F Assigned Patient Location: [facility] Current Patient Location: [facility] Accession/Order Number: [id number] Exam Date: 07/28/2024 09:18 Report Date: 07/28/2024 22:11 At the request of: ANITA DUDLEY Procedure: XR lumbar spine min 4V EXAM: XR lumbar spine min 4V HISTORY: Sacroiliitis COMPARISON: None. FINDINGS/IMPRESSION: 1. No acute fracture or dislocation. 2. Moderate degeneration of the lower thoracic and lumbar spine. 3. Vertebral body height is preserved. 4. Moderate degeneration of the bilateral sacroiliac joints. 5. Overlying bowel gas pattern is nonspecific. 6. Cholecystectomy. Electronically authenticated by: KEYSHAWN GUTIERREZ Date: 07/28/2024 22:11
== END 2024-07-28 08:55 | disposition home or self-care (01) ==
LOC: RAD 08:54
PROVIDERS: PCP Family Medicine; Visit Provider Family Medicine
DX: M46.1 Sacroiliitis, not elsewhere classified (principal); M51.369 Other intervertebral disc degeneration, lumbar region without mention of lumbar back pain or lower extremity pain; M51.34 Other intervertebral disc degeneration, thoracic region
CPT/HCPCS: 72110

== ENCOUNTER 2024-09-02 11:04 | Outpatient (OUT) | payer MEDICARE, SELFPAY ==
--- NOTE | 2024-09-02 11:17 | XR_ITS ---
The [address] [address] Patient Name: BENIGNO CHO MRN: [id number] date: 1935 Sex: F Assigned Patient Location: [facility] Current Patient Location: [facility] Accession/Order Number: [id number] Exam Date: 09/02/2024 13:21 Report Date: 09/02/2024 13:26 At the request of: CARI BRAUN Procedure: XR hip RT min 2V RIGHT HIP - 2 views: CLINICAL HISTORY: Right hip and low back pain. Prior history of hip replacement COMPARISON: CT 05/08/2023 AP and frog-lateral views were obtained. A prosthesis is again visualized. The acetabular cup appears slightly oversized for the femoral head though this is unchanged from patient's comparison CT. The remainder of the hardware is also stable. There is no developing fracture or dislocation. There is minor sclerosis at the right SI joint and pubic symphysis. There are no significant soft tissue abnormalities. XR/XR hip RT min 2V IMPRESSION: STABLE RIGHT HIP REPLACEMENT. NO ACUTE BONY FINDINGS. Impression dictated by: Neeta Corrigan M.D.09/02/2024 1:26 PM Dictation Location: [place] [address] Electronically authenticated by: [id number] Y Date: 09/02/2024 13:26
--- OUTSIDE RECORDS SUMMARY | 2024-09-02 11:25 | XMS_ITS | CCD ---
Author Organization [facility] Care Team Providers Care Counter Helper Name Role Phone DICK, DR BLACK Admitting Unavailable STEPANIC, DR BLACK Attending Unavailable STEPANIC, DR BLACK Consulting Unavailable OCTAVIA, DR HOWARD Primary Care Unavailable OCTAVIA, DR HOWARD Primary Care Unavailable OCTAVIA, DR HOWARD Admitting Unavailable OCTAVIA, DR HOWARD Attending Unavailable OCTAVIA, DR HOWARD Consulting Unavailable ZIEBER, DR HEBER Lira Consulting Unavailable OCTAVIA, DR HOWARD Primary Care Unavailable OCTAVIA, DR HOWARD Admitting Unavailable OCTAVIA, DR HOWARD Attending Unavailable OCTAVIA, DR HOWARD Consulting Unavailable ZIEBER, DR HEBER Lira Consulting Unavailable KARIME BLACK Admitting Unavailable KARIME BLACK Attending Unavailable KARIME BLACK Consulting Unavailable OCTAVIA, DR HOWARD Primary Care Unavailable Anita Dudley MD Unavailable Anita Dudley MD Primary Care Provider [phone] WAYNE ZUNIGA Attending Unavailable WAYNE ZUNIGA Attending Unavailable WAYNE ZUNIGA Attending Unavailable WAYNE ZUNIGA Attending Unavailable WAYNE ZUNIGA Attending Unavailable CLARI HUA Attending Unavailable HEMMERNEETA Referring Unavailable KELBLEYFREDA Attending Unavailable HEMMER, NEETA M Referring Unavailable KELBLEYFREDA Attending Unavailable HEMMER, NEETA M Referring Unavailable KELBLEY, FREDA Attending Unavailable HEMMER, NEETA M Referring Unavailable KELBLEY, FREDA Attending Unavailable HEMMER, NEETA M Referring Unavailable KELBLEYFREDA Attending Unavailable HEMMER, NEETA M Referring Unavailable DONY MCDONALD Attending Unavailabl e OCTAVIAANITA Attending Unavailable DONY MCDONALD Attending Unavailabl e ANITA DUDLEY Referring Unavailable OCTAVIAANITA Attending Unavailable DONY MCDONALD Attending Unavailabl e OCTAVIAANITA Referring Unavailable NEETA NUNO Attending DONY Carlson Attending ANITA Borja Attending Unavailable DONY MCDONALD Attending Jaleesa maldonado Allergies Allergy Classification Reported Allergen(s) Allergy Type Date of Onset Reaction(s) Facility (1 source) ALPRAZolam Drug Allergy 01-13-20 15 [facility] (1 source) Cephalexin Drug Allergy 06-25-20 15 [facility] (1 source) oxyCODONE Drug Allergy 05-09-20 11 [facility] (1 source) Sulfamethoxazole / Trimethoprim Drug Allergy 06-25-20 15 [facility] (1 source) Sulfonamides (Antibiotic) Drug allergy (disorder) 06-25-20 15 [facility] (20 sources) Cephalexin; Translations: [CEPHALEXIN] Drug Allergy 02-14-20 11 Hives, Unknown [facility] (20 sources) Sulfamethoxazole; Translations: [SULFAMETHOXAZOLE] Allergy to substance 02-14-20 11 Hives, Unknown [facility] (20 sources) Sulfamethoxazole / Trimethoprim; Translations: [SULFAMETHOXAZOLE-TR IMETHOPRIM] Drug Allergy 06-08-20 22 [facility] (20 sources) Sulfonamides (Antibiotic) Drug Allergy 01-02-20 24 [facility] (20 sources) Trimethoprim; Translations: [TRIMETHOPRIM] Drug Allergy 01-15-20 21 Unknown [facility] Medications Current Medications Medication Drug Class(es) Dates Sig (Normalized) Sig (Original) ALPRAZolam 0.25 mg oral tablet (20 sources) Benzodiazepine Start: 10-29-2023 End: 07-22-2024 take 1 tablet by mouth every twelve hours for anxiety and anxiety ALPRAZolam (Xanax) 0.25 MG tablet Indications: Anxiety Take 1 tablet (0.25 mg) by mouth every 12 (twelve) hours 30 tablet 07/22/2024 Active aspirin 81 mg delayed release oral tablet (20 sources) Platelet Aggregation Inhibitor, Nonsteroidal Anti-inflammatory Drug aspirin 81 MG EC tablet 2 (two) times a day. Active baclofen 5 mg oral tablet (18 sources) gamma-Aminobutyric Acid-ergic Agonist Start: 07-22-2024 End: 08-22-2024 take 1 tablet by mouth at bedtime baclofen (Lioresal) 5 MG tablet Indications: Sacroiliitis (CMS/HCC) TAKE 1 TABLET BY MOUTH IN THE MORNING, EVENING AND BEFORE BEDTIME 270 tablet 1 08/15/2024 Active benazepril hydrochloride 10 mg oral tablet (20 sources) Angiotensin Converting Enzyme Inhibitor Start: 01-22-2024 [...] 2024 12:00am cholecalciferol 0.125 mg oral tablet (20 sources) Vitamin D cholecalciferol (D3-5) 5,000 Units tablet Daily. Active Cyclosporine (1 source) Calcineurin Inhibitor Immunosuppressant Start: 4 Cyclosporine Active DROPS OPHTHALMIC January 02, 2024 12:00am cycloSPORINE (Restasis) 0.05 % ophthalmic emulsion (20 sources) Start: 4 cycloSPORINE (Restasis) 0.05 % ophthalmic emulsion 01/02/2024 Active empagliflozin 10 mg oral tablet (20 sources) Sodium-Glucose Cotransporter 2 Inhibitor Start: 4 [...] 07/26/2024 Active lidocaine 0.05 mg/mg medicated patch (15 sources) Antiarrhythmic, Amide Local Anesthetic Start: 07-22-2024 End: 08-22-2024 apply 1 dose transdermal route every twelve hours lidocaine (Lidoderm) 5 % patch Indications: Sacroiliitis (CMS/HCC) Apply 1 patch over 12 hours topically Daily Apply to painful area 12 hours per day, remove for 12 hours. 30 patch 07/23/2024 08/22/2024 Active magnesium oxide 400 mg oral tablet (20 sources) magnesium oxide (Mag-Ox) 400 MG tablet Daily. Active Metoprolol (20 sources) beta-Adrenergic Karlee Start: 01-02-2024 Metoprolol Succinate Active MG PO January 02, 2024 12:00am take 1 tablet by kaya th every twenty-four hours in the morning metoprolol succinate XL (Toprol-XL) 25 M G 24 hr tablet TAKE 1 TABLET BY MOUTH IN THE MORNING FOR 14 DAYS*DO NOT CRUSH OR CHEW* Active nitroglycerin 0.4 mg sublingual tablet (20 sources) Nitrate Vasodilator Start: 07-16-2023 nitroglycerin (Nitrostat) [...] 2024 12:00am simvastatin 20 mg oral tablet (20 sources) HMG-CoA Reductase Inhibitor Start: 01-22-2024 End: 08-25-2025 take 1 tablet by mouth at bedtime simvastatin (Zocor) 20 MG tablet Indications: Hypertension, unspecified type (CMS/HCC) Take 1 tablet (20 mg) by mouth at bedtime 360 tablet 08/25/2024 08/25/2025 Active Start: 01-02-2024 Simvastatin Ac tive MG PO January 02, 2024 12:00am SITagliptin 100 mg oral tablet (20 sources) Dipeptidyl Peptidase 4 Inhibitor Start: 10-04-2023 Januvia 100 MG tablet Indications: Type 2 diabetes mellitus with chronic kidney disease, with long-term current use of insulin, unspecified CKD stage (CMS/HCC) TAKE 1 TABLET DAILY 100 tablet 3 10/04/2023 Active spironolactone 25 mg oral tablet (20 sources) Aldosterone Antagonist take 0.5 tablet by mouth once daily spironolactone (Aldactone) 25 MG tablet Take by mouth Daily Take 1/2 daily. Active traMADol hydrochloride 50 mg oral tablet (7 sources) Opioid Agonist Start: 07-29-2024 End: 08-09-2024 take 1 tablet by mouth every six hours for pain traMADol (Ultram) 50 MG tablet Indications: Sacroiliitis (CMS/HCC) Take 1 tablet (50 mg) by mouth every 6 (six) hours if needed for severe pain for up to 10 days 40 tablet 07/30/2024 08/09/2024 Active ubidecarenone 200 mg oral capsule (20 sources) coenzyme Q-10 20 0 MG capsule [...] Problem Date Documented Date Episodic/Chronic Adjustment disorders (20 sources) Adjustment disorder with anxious mood; Translations: [Adjustment disorder with anxiety] Onset: 04-12-2015 11-30-2022 Chronic Anxiety disorders (20 sources) Anxiety; Translations: [Anxiety disorder, unspecified] Onset: 07-16-2023 07-16-2023 Chronic Chronic kidney disease (20 sources) Chronic kidney disease stage 3A ; Translations: [Stage 3a chronic kidney disease (HCC)] Onset: 01-06-2020 11-30-2022 Chronic Congestive heart failure; nonhypertensive (20 sources) Heart failure with reduced ejection fraction; Translations: [Unspecified systolic (congestive) heart failure] Onset: 09-24-2023 09-24-2023 Chronic Coronary atherosclerosis and other heart disease (20 sources) 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; Translations: [Atherosclerotic heart disease of [place] coronary artery without angina pectoris] Onset: 04-12-2015 [...] 11-30-2022 Chronic Diseases of white blood cells (20 sources) Leukocytosis; Translations: [Elevated white blood cell count, unspecified] Onset: 07-22-2024 07-22-2024 Chronic Disorders of lipid metabolism (20 sources) Hypertriglyceridemia; Translations: [Pure hyperglyceridemia] Onset: 04-12-2015 11-30-2022 Chronic Esophageal disorders (20 sources) Gastroesophageal reflux disease; Translations: [Gastro-esophageal reflux disease without esophagitis] Onset: 08-11-2015 11-30-2022 Chronic Essential hypertension (20 sources) Hypertensive disorder; Translations: [Essential (primary) hypertension] Onset: 06-08-2022 11-30-2022 Chronic Gout and other crystal arthropathies (20 sources) Gouty arthropathy; Translations: [Gout, unspecified] Onset: 10-22-2015 11-30-2022 Chronic Menopausal disorders (4 sources) Other primary ovarian failure; Translations: [OTHER PRIMARY OVARIAN FAILURE] Onset: 10-31-2022 Chronic Osteoarthritis (20 sources) Osteoarthritis; Translations: [Unspecified osteoarthritis, unspecified site] Onset: 12-17-2007 11-30-2022 Chronic Other bone disease and musculoskeletal deformities (1 source) Other specified disorders of bone density and structure, left thigh; Translations: [OTH D/O BONE DEN STRUCT LT THIGH] Onset: 11-04-2022 Episodic Other nervous system disorders (20 sources) Carpal tunnel syndrome of left wrist; Translations: [Carpal tunnel syndrome, left upper limb] Onset: 11-30-2022 11-30-2022 Chronic Other nervous system disorders (20 sources) Disorder of muscle; Translations: [Myopathy, unspecified] Onset: 05-10-2023 05-10-2023 Chronic Other nutritional; endocrine; and metabolic disorders (20 sources) Lipoprotein deficiency disorder; Translations: [Lipoprotein deficiency] Onset: 08-11-2015 11-30-2022 Chronic Other upper respiratory disease (20 sources) Allergic rhinitis; Translations: [Allergic rhinitis, unspecified] Onset: 08-11-2015 11-30-2022 Chronic Peripheral and visceral atherosclerosis (20 sources) Peripheral vascular disease, unspecified; Translations: [Peripheral vascular disease, unspecified] Onset: 11-30-2022 11-30-2022 Chronic Spondylosis; intervertebral disc disorders; other back problems (20 sources) Inflammation of sacroiliac joint; Translations: [Sacroiliitis, not elsewhere classified] Onset: 07-22-2024 07-22-2024 Chronic Past or Other Problems Problem Classification Problem Date Documented Date Episodic/Chronic Allergic reactions (20 sources) Contact dermatitis due to poison dylon; Translations: [Allergic contact dermatitis due to plants, except food] Onset: 01-22-2024 01-02-2024 Episodic Anal and rectal conditions (20 sources) Disorder of rectum; Translations: [Disease of anus and rectum, unspecified] Onset: 05-16-2023 05-16-2023 Episodic Cancer of breast (20 sources) Malignant tumor of breast ; Translations: [Malignant neoplasm of unspecified site of unspecified female breast] Onset: 08-11-2015 Resolved: 02-15-2024 02-15-2024 Chronic Cancer of breast (20 sources) Personal history of malignant neoplasm of breast; Translations: [History of malignant neoplasm of breast] Onset: 06-10-2022 02-15-2024 Episodic Melanomas of skin (20 sources) H/O Malignant melanoma; Translations: [Personal history of malignant melanoma of skin] Onset: 08-11-2015 11-30-2022 Episodic Mycoses (20 sources) Onychomycosis due to dermatophyte ; Translations: [Tinea unguium] Onset: 04-10-2019 11-30-2022 Episodic Other bone disease and musculoskeletal deformities (20 sources) Osteopenia; Translations: [Other specified disorders of bone density and structure, left thigh] Onset: 03-26-2018 11-30-2022 Episodic Other connective tissue disease (20 sources) Muscle pain; Translations: [Myalgia, unspecified site] Onset: 04-18-2023 04-18-2023 Episodic Other female genital disorders (20 sources) Pruritus of vagina; Translations: [Other specified noninflammatory disorders of vagina] Onset: 01-22-2024 Resolved: 02-15-2024 02-15-2024 Episodic Other inflammatory condition of skin (20 sources) Itching of skin; Translations: [Other pruritus] Onset: 01-22-2024 01-22-2024 Episodic Other screening for suspected conditions (not mental disorders or infectious disease) (20 sources) Encounter for screening mammogram for malignant neoplasm of breast; Translations: [CT of abdomen abnormal] Onset: 06-06-2022 Episodic Urinary tract infections (20 sources) Acute cystitis; Translations: [Acute cystitis without hematuria] Onset: 01-22-2024 01-22-2024 Episodic Results Test Name Value Interpretation Reference Range Facility CBC (H/H, RBC, INDICES, WBC, PLT)on 07-28-2024 Erythrocyte distribution width (RBC) [Ratio] 13.4 % Normal 11.0-15.0 [facility] Comment on above: Performed By: #### 1 023, 1759 #### [facility] [address] [place] [address] Heavy Cleaner: Marj Martinez Hematocrit (Bld) [Volume fraction] 43.2 % Normal 35.0-45.0 [facility] Comment on above: Performed By: #### 1 023, 1759 #### [facility] [address] [place] [address] Heavy Cleaner: Marj Martinez Hemoglobin (Bld) [Mass/Vol] 14.2 g/dL Normal 11.7-15.5 [facility] Comment on above: Performed By: #### 1 023, 1759 #### [facility] [address] [place] [address] Heavy Cleaner: Marj Martinez MCH (RBC) [Entitic mass] 32.0 pg Normal 27.0-33.0 [facility] Comment on above: Performed By: #### 1 023, 1759 #### [facility] [address] [place], [place] [id number] Heavy Cleaner: Marj Martinez MCHC (RBC) [Mass/Vol] 32.9 g/dL Normal 32.0-36.0 [facility] Comment on above: Result Comment: For adults, a slight decrease in the calculated MCHC value (in the range of 30 to 32 g/dL) is most likely not clinically significant; however, it should be interpreted with caution in correlation with other red cell parameters and the patient's clinical condition. Performed By: #### 1 230, 1759 #### [facility] [address] [place] [address] Heavy Cleaner: Marj Martinez MCV (RBC) [Entitic vol] 97.3 fL Normal 80.0-100.0 [facility] Comment on above: Performed By: #### 1 230, 175 #### [facility] [address] Heavy Cleaner: Marj Martinez Platelet mean volume (Bld) [Entitic vol] 9.7 fL Normal 7.5-12.5 [facility] Comment on above: Performed By: #### 1 230, 175 #### [facility] [address] [place] [address] Heavy Cleaner: Marj Martinez Platelets (Bld) [#/Vol] 344 10*3/uL Normal 140-400 [facility] Comment on above: Performed By: #### 1 230, 175 #### [facility] [address] Heavy Cleaner: Marj Martinez RBC (Bld) [#/Vol] 4.44 10*6/uL Normal 3.80-5.10 [facility] Comment on above: Performed By: #### 1 230, 175 #### [facility] [address] [place] [address] Heavy Cleaner: Marj Martinez WBC (Bld) [#/Vol] 10.1 10*3/uL Normal 3.8-10.8 [facility] Comment on above: Performed By: #### 1 230, 175 #### [facility] [address] Heavy Cleaner: Marj Martinez COMPREHENSIVE METABOLIC PANE Aki 07-28-2024 Albumin [Mass/Vol] 4.1 g/dL Normal 3.6-5.1 [facility] Comment on above: Order Comment: FASTI NG:NO FASTING: NO Performed By: #### 1 023, 1759 #### [facility] [address] [place] [address] Heavy Cleaner: Marj Martinez Albumin/Globulin [Mass ratio] 1.5 {ratio} Normal 1.0-2.5 [facility] Comment on above: Order Comment: FASTI NG:NO FASTING: NO Performed By: #### 1 230, 175 #### [facility] [address] [place] [address] Heavy Cleaner: Marj Martinez ALP [Catalytic activity/Vol] 57 U/L Normal 37-153 [facility] Comment on above: Order Comment: FASTI NG:NO FASTING: NO Performed By: #### 1 230, 175 #### [facility] [address] [place] [address] Heavy Cleaner: Marj Martinez ALT [Catalytic activity/Vol] 16 U/L Normal 6-29 [facility] Comment on above: Order Comment: FASTI NG:NO FASTING: NO Performed By: #### 1 023, 175 #### [facility] [address] [place], [place] [id number] Heavy Cleaner: Marj Martinez AST [Catalytic activity/Vol] 19 U/L Normal 10-35 [facility] Comment on above: Order Comment: FASTI NG:NO FASTING: NO Performed By: #### 1 023, 175 #### [facility] [address] [place], [place] [id number] Heavy Cleaner: Marj Martinez Bilirubin [Mass/Vol] 0.4 mg/dL Normal 0.2-1.2 [facility] Comment on above: Order Comment: FASTI NG:NO FASTING: NO Performed By: #### 1 230, 175 #### [facility] [address] [place] [address] Heavy Cleaner: Marj Martinez Calcium [Mass/Vol] 9.4 mg/dL Normal 8.6-10.4 [facility] Comment on above: Order Comment: FASTI NG:NO FASTING: NO Performed By: #### 1 230, 1759 #### [facility] [address] [place] [address] Heavy Cleaner: Marj Lira Flatsamantha Chloride [Moles/Vol] 107 mmol/L Normal 98-110 [facility] Comment on above: Order Comment: FASTI NG:NO FASTING: NO Performed By: #### 1 230, 175 #### [facility] [address] Heavy Cleaner: Marj Lira Flati CO2 [Moles/Vol] 24 mmol/L Normal 20-32 [facility] Comment on above: Order Comment: FASTI NG:NO FASTING: NO Performed By: #### 1 230, 175 #### [facility] [address] Heavy Cleaner: Marj Martinez Creatinine [Mass/Vol] 1.00 mg/dL High 0.60-0.95 [facility] Comment on above: Order Comment: FASTI NG:NO FASTING: NO Performed By: #### 1 230, 175 #### [facility] [address] Heavy Cleaner: Marj Martinez GFR/1.73 sq M.predicted among non-blacks MDRD (S/P/Bld) [Vol rate/Area] 54 mL/min/{1.73_m2} Low > OR = 60 [facility] Comment on above: Order Comment: FASTI NG:NO FASTING: NO Performed By: #### 1 230, 175 #### [facility] [address] [place] [address] Heavy Cleaner: Marj Martinez Globulin (S) [Mass/Vol] 2.7 g/dL Normal 1.9-3.7 [facility] Comment on above: Order Comment: FASTI NG:NO FASTING: NO Performed By: #### 1 230, 175 #### [facility] [address] [place], [place] [id number] Heavy Cleaner: Marj Liar Flati Glucose [Mass/Vol] 158 mg/dL High 65-139 [facility] Comment on above: Order Comment: FASTI NG:NO FASTING: NO Result Comment: Non-fasting reference interval For someone without known diabetes, a glucose value >125 mg/dL indicates that they may have diabetes and this should be confirmed with a follow-up test. Performed By: #### 1 023, 175 #### [facility] [address] [place] [address] Heavy Cleaner: Marj Lira Flati Potassium [Moles/Vol] 4.8 mmol/L Normal 3.5-5.3 [facility] Comment on above: Order Comment: FASTI NG:NO FASTING: NO Performed By: #### 1 230, 175 #### [facility] [address] Heavy Cleaner: Marj Lira Flati Protein [Mass/Vol] 6.8 g/dL Normal 6.1-8.1 [facility] Comment on above: Order Comment: FASTI NG:NO FASTING: NO Performed By: #### 1 230, 175 #### [facility] [address] [place] [address] Heavy Cleaner: Marj Lira Flati Sodium [Moles/Vol] 139 mmol/L Normal 135-146 [facility] Comment on above: Order Comment: FASTI NG:NO FASTING: NO Performed By: #### 1 230, 175 #### [facility] [address] [place], [place] [id number] Heavy Cleaner: Marj Lira Flati Urea nitrogen [Mass/Vol] 28 mg/dL High 7- [facility] Comment on above: Order Comment: FASTI NG:NO FASTING: NO Performed By: #### 1 230, 175 #### [facility] [address] [place], [place] [id number] Heavy Cleaner: Marj Lira Flati Urea nitrogen/Creatinin e [Mass ratio] 28 mg/mg High 6- [facility] Comment on above: Order Comment: FASTI NG:NO FASTING: NO Performed By: #### 1 0231, 1759 #### [facility] [address] [place] [address] Heavy Cleaner: Marj Martinez Laboratory - Hematology and Cell countson 07-22-2024 HbA1c (Bld) [Mass fraction] 6.4 % [facility] No Panel Informationon 07-22 Interpretation and review of laboratory results Abnormal [facility] 06-23-2024 Follow-up visit [id number] Dennis Cho A 1935 F Date Provider Department Center 06/23/2024 WAYNE GANT Family History Problem Relation Age of Onset Coronary artery disease Mother Coronary artery disease Brother Family Status - Relation Status Age at Mother Brother Level of Service:16663 SD OFFICE/OUTPATIENT ESTABLISHED LOW MDM 20 MIN Normal [facility] 36on 02-18-2024 36 Regarding lab result s from 02/12/2024: MD Nat Mar MA Blood testing is okay. Follow-up as planned. Patient informed. Normal [facility] Office Visiton 01-28-2024 Follow-up visit [id number] Dennis Cho A 1935 F Date Provider Department Center 01/28/2024 WAYNE GANT Family History Problem Relation Age of Onset Coronary artery disease Mother Coronary artery disease Brother Family Status - Relation Status Age at Mother Brother Level of Service:56075 SD OFFICE/OUTPATIENT ESTABLISHED MOD MDM 30 MIN Normal [facility] Office Visiton 10-26-2023 Follow-up visit [id number] Dennis Cho A 1935 F Date Provider Department Center 10/26/2023 WAYNE GANT No family history on file Level of Service:33197 SD OFFICE/OUTPATIENT ESTABLISHED MOD MDM 30 MIN Reason for Visit and Comments: Follow-up [735788] - Go over stress test results and labs Normal [facility] Office Visiton 09-24-2023 Follow-up visit [id number] Dennis Cho Salud 1935 F Date Provider Department Center 09/24/2023 WAYNE GANT [facility] No family history on file Level of Service:49691 SD OFFICE/OUTPATIENT ESTABLISHED MOD MDM 30 MIN [facility] 36on 09-13-2023 36 Regarding echo from 09/03/2023: MD Nat Mar MA her echocardiogram showed reduced ejection fraction at 30 to 35%. She needs to be seen in the office to adjust medications due to heart failure and to discuss cardiac catheterization. Spoke with patient and scheduled her to see Dr. Zuniga on 09/23. [facility] Office Visiton 07-26-2023 Follow-up visit [id number] Dennis Cho Salud 1935 F Date Provider Department Center 07/26/2023 WAYNE GANT [facility] No family history on file Level of Service:13611 [place] OFFICE/OUTPATIENT ESTABLISHED LOW MDM 20 MIN [facility] XR DEXA BONE DENSITYon 10-31 XR DEXA [...] - Moderate Fracture Risk Electronically authenticated by: HEBER ANTHONY Date: 2022-10-31 09:16 Normal [facility] MG MAMM SCREEN 3D CATHLEEN CADon 06-06-2022 MG MAMM SCREEN 3D CATHLEEN CAD Patient: BENIGNO CHOColby Exam Date: 06/06/2022 : 1935 Gender:F Ordering : DR ANITA DUDLEY M.D. Admission #: [id number] Family : Order #: [id number] CLICK HERE TO VIEW EXAM RADIOLOGY REPORT [...] Chemotherapy, Tamoxifen Family Cancers None LOCATION: [facility] BREAST COMPOSITION: Heterogeneously dense,which may obscure small [...] PALPABLE LUMP SHOULD BE BIOPSIED. Dictated by: Heber Anthony M.D. on 06/07/2022 at 14:54 Approved by: Heber Anthony M.D. on 06/07/2022 at 15:08 Normal [facility] PROF CHEM 8 (BAS METB)on Anion gap [Moles/Vol] 12.9 mmol/L Normal [facility] Comment on above: Performed By: #### B MP #### [facility] [address] [place] [address] Dr. Justin Sidhu Calcium [Mass/Vol] 8.8 mg/dL Normal 8.5-10.1 [facility] Comment on above: Performed By: #### B MP #### [facility] [address] [address] [address] Justin Sidhu Chloride [Moles/Vol] 99 mmol/L Normal 98-107 [facility] Comment on above: Performed By: #### B MP #### [facility] [address] [address] [address] Justin Sidhu CO2 [Moles/Vol] 25.9 mmol/L Normal 21.0-32.0 [facility] Comment on above: Performed By: #### B MP #### [facility] [address] [place] [address] Dr. Justin Sidhu Creatinine [Mass/Vol] 0.75 mg/dL Normal 0.55-1.02 [facility] Comment on above: Performed By: #### B MP #### [facility] [address] [place] [address] Dr. Justin Sidhu EGFR-AF CYMRAES >60 Normal >=60 [facility] Comment on above: Performed By: #### B MP #### [facility] [address] [place] [address] Dr. Justin Sidhu EGFR-NON AF CYMRAES >60 Normal >=60 [facility] [place] Comment on above: Performed By: #### B MP #### [facility] [address] [place] [address] Dr. Justin Sidhu Glucose [Mass/Vol] 123 mg/dL Critically high 74-106 T [facility] Comment on above: Performed By: #### B MP #### [facility] [address] [place] [address] Dr. Justin Sidhu Potassium [Moles/Vol] 4.8 mmol/L Normal 3.5-5.1 [facility] [place] Comment on above: Result Comment: SPEC IMEN SLIGHTLY HEMOLIZED Performed By: #### B MP #### [facility] [address] [place] [address] Dr. Justin Sidhu Sodium [Moles/Vol] 133 mmol/L Critically low 136-145 Th [facility] Comment on above: Performed By: #### B MP #### [facility] [address] [place] [address] Dr. Justin Sidhu Urea nitrogen [Mass/Vol] 19.0 mg/dL Critically high 7.0-18.0 [facility] Comment on above: Performed By: #### B MP #### [facility] [address] [place] [address] Dr. Justin Sidhu Urea nitrogen/Creatinin e [Mass ratio] 25.3 mg/mg Normal [facility] [place] Comment on above: Performed By: #### B MP #### [facility] [address] [place], [place] [address] Dr. Justin Sidhu Complete Blood Count with Au to Diffon 09-23-2021 Basophils (Bld) [#/Vol] 0.04 10*3/uL Normal 0.00-0.20 [facility] Comment on above: Performed By: #### C MP, CBCAD, LIPD #### [facility] [address], [place] [id number] Basophils/100 WBC (Bld) 0.2 % Normal [facility] Comment on above: Performed By: #### C MP, CBCAD, LIPD #### [facility] [address], [place] [id number] Eosinophils (Bld) [#/Vol] 0.10 10*3/uL Normal 0.02-0.50 [facility] Comment on above: Performed By: #### C MP, CBCAD, LIPD #### [facility] [address], [place] [id number] Eosinophils/100 WBC (Bld) 0.6 % Normal [facility] Comment on above: Performed By: #### C MP, CBCAD, LIPD #### [facility] [address], [place] [id number] Erythrocyte distribution width (RBC) [Ratio] 13.4 % Normal 11.0-15.0 [facility] Comment on above: Performed By: #### C MP, CBCAD, LIPD #### [facility] [address], [place] [id number] Hematocrit (Bld) [Volume fraction] 37.9 % Normal 35.0-47.0 [facility] Comment on above: Performed By: #### C MP, CBCAD, LIPD #### [facility] [address] [place], [place] [id number] Hemoglobin (Bld) [Mass/Vol] 12.8 g/dL Normal 11.6-15.5 [facility] Comment on above: Performed By: #### C MP, CBCAD, LIPD #### [facility] [address] [place], [place] [id number] Lymphocytes (Bld) [#/Vol] 1.6 10*3/uL Normal 0.9-3.9 [facility] Comment on above: Performed By: #### C MP, CBCAD, LIPD #### [facility] [address] [place], [place] [id number] Lymphocytes/100 WBC (Bld) 9.6 % Normal [facility] Comment on above: Performed By: #### C MP, CBCAD, LIPD #### [facility] [address] [place], [place] [id number] MCH (RBC) [Entitic mass] 33.2 pg High 27.0-33.0 [facility] Comment on above: Performed By: #### C MP, CBCAD, LIPD #### [facility] [address] [place], [place] [id number] MCHC (RBC) [Mass/Vol] 33.8 g/dL Normal 32.0-36.0 [facility] Comment on above: Performed By: #### C MP, CBCAD, LIPD #### [facility] [address] [place], [place] [id number] MCV (RBC) [Entitic vol] 98 fL Normal 80-100 [facility] Comment on above: Performed By: #### C MP, CBCAD, LIPD #### [facility] [address] [place], [place] [id number] Monocytes (Bld) [#/Vol] 1.0 10*3/uL High 0.2-0.9 [facility] Comment on above: Performed By: #### C MP, CBCAD, LIPD #### [facility] [address], [place] [id number] Monocytes/100 WBC (Bld) 5.9 % Normal [facility] Comment on above: Performed By: #### C MP, CBCAD, LIPD #### [facility] [address] [place], [place] [id number] Neutrophils (Bld) [#/Vol] 13.5 10*3/uL High 1.5-7.8 [facility] Comment on above: Performed By: #### C MP, CBCAD, LIPD #### [facility] [address] [place], [place] [id number] Neutrophils/100 WBC (Bld) 83.0 % Normal [facility] Comment on above: Performed By: #### C MP, CBCAD, LIPD #### [facility] [address] [place], [place] [id number] Platelet mean volume (Bld) [Entitic vol] 10.60 fL Normal 7.50-12.50 [facility] Comment on above: Performed By: #### C MP, CBCAD, LIPD #### [facility] [address], [place] [id number] Platelets (Bld) [#/Vol] 271 10*3/uL Normal 140-400 [facility] Comment on above: Performed By: #### C MP, CBCAD, LIPD #### [facility] [address], [place] [id number] RBC (Bld) [#/Vol] 3.85 10*6/uL Low 3.90-5.20 [facility] Comment on above: Performed By: #### C MP, CBCAD, LIPD #### [facility] [address], [place] [id number] RDW-SD 48.1 fL Normal 37.0-50.0 [facility] Comment on above: Performed By: #### C MP, CBCAD, LIPD #### [facility] [address] [place], [place] [id number] WBC (Bld) [#/Vol] 16.3 10*3/uL High 3.8-11.0 [facility] Comment on above: Performed By: #### C MP, CBCAD, LIPD #### [facility] [address], [place] [id number] Comprehensive Metabolic Pane aki 09-23-2021 Albumin [Mass/Vol] 4.0 g/dL Normal 3.6-5.1 [facility] Comment on above: Performed By: #### C MP, CBCAD, LIPD #### [facility] [address], [place] [id number] Albumin/Globulin [Mass ratio] 2.4 {ratio} Normal 1.0-2.5 [facility] Comment on above: Performed By: #### C PORTILLO, CBCAD, LIPD #### [facility] [address] [place], [place] [id number] ALP [Catalytic activity/Vol] 67 U/L Normal 35-119 [facility] Comment on above: Performed By: #### C MP, CBCAD, LIPD #### [facility] [address], [place] [id number] ALT [Catalytic activity/Vol] 12 U/L Normal 6-33 [facility] Comment on above: Result Comment: 06/08 Female reference range changed. Performed By: #### C PORTILLO, CBCAD, LIPD #### [facility] [address] [place], [place] [id number] Anion gap [Moles/Vol] 18 mmol/L Normal 12-20 [facility] Comment on above: Result Comment: Effe ctive 07/14/2019 reference range changed. Performed By: #### C MP, CBCAD, LIPD #### [facility] [address], [place] [id number] AST [Catalytic activity/Vol] 17 U/L Normal 9-34 [facility] Comment on above: Performed By: #### C MP, CBCAD, LIPD #### [facility] [address], [place] [id number] Bilirubin [Mass/Vol] 0.52 mg/dL Normal 0.30-1.20 [facility] Comment on above: Performed By: #### C MP, CBCAD, LIPD #### [facility] [address], [place] [id number] BUN/CREA 30 Ratio High 6-22 [facility] Comment on above: Performed By: #### C MP, CBCAD, LIPD #### [facility] [address], [place] [id number] Calcium [Mass/Vol] 8.9 mg/dL Normal 8.6-10.2 [facility] Comment on above: Performed By: #### C MP, CBCAD, LIPD #### [facility] [address], [place] [id number] Chloride [Moles/Vol] 96 mmol/L Low 98-107 [facility] Comment on above: Performed By: #### C RAHEL NATH, LIPD #### [facility] [address], [place] [id number] CO2 [Moles/Vol] 29 mmol/L Normal 20-31 [facility] Comment on above: Performed By: #### C RAHEL NATH, LIPD #### [facility] [address], [place] [id number] Creatinine [Mass/Vol] 0.8 mg/dL Normal 0.6-1.4 [facility] Comment on above: Performed By: #### C RAHEL NATH, LIPD #### [facility] [address], [place] [id number] eGFRAA 87 mL/min/1.73m2 Normal >60 [facility] Comment on above: Performed By: #### C RAHEL NATH, LIPD #### [facility] [address], [place] [id number] eGFRNAA 72 mL/min/1.73m2 Normal >60 [facility] Comment on above: Performed By: #### C RAHEL NATH, LIPD #### [facility] [address], [place] [id number] Globulin (S) [Mass/Vol] 1.7 g/dL Low 1.9-3.7 [facility] Comment on above: Performed By: #### C RAHEL NATH, LIPD #### [facility] [address], [place] [id number] Glucose [Mass/Vol] 186 mg/dL High 65-99 [facility] Comment on above: Result Comment: For FASTING Glucose --- ADA reference ranges: Normal 65-99 mg/dl Prediabetes 100-125 Diabetes >/= 126 Performed By: #### C RAHEL NATH, LIPD #### [facility] [address], [place] [id number] Potassium [Moles/Vol] 3.8 mmol/L Normal 3.5-5.5 [facility] Comment on above: Performed By: #### C MP, CBCAD, LIPD #### [facility] [address], [place] [id number] Protein [Mass/Vol] 5.7 g/dL Low 6.1-8.1 [facility] [place] Comment on above: Performed By: #### C MP, CBCAD, LIPD #### [facility] [address], [place] [id number] Sodium [Moles/Vol] 138 mmol/L Normal 135-146 [facility] [place] Comment on above: Performed By: #### C MP, CBCAD, LIPD #### [facility] [address], [place] [id number] Urea nitrogen [Mass/Vol] 23 mg/dL Normal 7-25 [facility] Comment on above: Performed By: #### C MP, CBCAD, LIPD #### [facility] [address], [place] [id number] Lipid Panelon 09-23-2021 Cholesterol [Mass/Vol] 155 mg/dL Normal 125-200 [facility] Comment on above: Result Comment: Low risk < 200mg/dL Borderline risk 201-239 mg/dl High risk > or equal to 240 Performed By: #### C MP, CBCAD, LIPD #### [facility] [address], [place] [id number] Cholesterol in HDL [Mass/Vol] 44 mg/dL Normal >40 [facility] Comment on above: Result Comment: High Cardiovascular Risk HDL <40 mg/dL Low Cardiovascular Risk HDL > or equal to 60 mg/dl Performed By: #### C MP, CBCAD, LIPD #### [facility] [address], [place] [id number] Cholesterol in LDL [Mass/Vol] 71 mg/dL Normal [facility] Comment on above: Result Comment: LDL ATP III CLASSIFICATION LDL less than 100 mg/dl Optimal LDL 100-129 mg/dl Near or above optimal LDL 130-159 Borderline high LDL 160-189 High LDL greater than 189 mg/dl Very High Performed By: #### C MP, CBCAD, LIPD #### [facility] [address], [place] [id number] Cholesterol in VLDL [Mass/Vol] 40 mg/dL Normal [facility] Comment on above: Performed By: #### C MP, CBCAD, LIPD #### [facility] [address], [place] [id number] Cholesterol.total/ Cholesterol in HDL [Mass ratio] 4 {ratio} Normal [facility] Comment on above: Performed By: #### C MP, CBCAD, LIPD #### [facility] [address], [place] [id number] Triglyceride [Mass/Vol] 202 mg/dL High 30-150 [facility] Comment on above: Result Comment: TRIG ATPIII CLASSIFICATIONS TRIG less than 150 mg/dl Normal TRIG 150-199 mg/dl Borderline High TRIG 200-500 mg/dl High TRIG greather than 500 mg/dl Very High Performed By: #### C MP, CBCAD, LIPD #### [facility] [address], [place] [id number] Uric Acidon 09-23-2021 URIC 5.5 mg/dL Normal 2.5-7.0 [facility] Comment on above: Result Comment: Refe rence range change 05/25/2017. Prior reference range F 2.4-5.7mg/dL. M 3.4-7.0 mg/dL. Performed By: #### U NICOLETTE #### [facility] [address] [place], [place] [id number] CNPKera 02-16-2021 CNPN Telephone (DAINAA) BENIGNO CHO ([id number]) 1935 F Date Time Provider Department 02/16/21 Alejo MAHAJAN During your visit today, we recorded the following information about you: Umu Kaye RN 02/16/2021 12:44 PM Signed MD Nolan Lorenzana Rad Nurse Pool Screening mammo and result [...] Hives Date Reviewed: 03/21/2017 Reviewed by: Hien (Micaela) BETY Turner - Fully Assessed Reason for Visit: Future Appointment [256] Primary Visit Diagnosis:Encounter for screening mammogram for malignant neoplasm of breast [Z12.31] Order(s):[facility] SCREENING [1122931] Order #: [id number] FUTURE Prescriptions as of 02/17/2021 - oxybutynin [...] If no pain relief call 911. - Aiken-3 Fatty Acids-Vitamin E (FISH OIL) 1,000 mg [...] breast cancer [Z85.3] 03/21/2017 Encounter Status:Closed by UMU KAYE on 02/17/21 Normal [facility] Vital Signs Date Time Vital Sign Value Performing Clinician Kerri kwok 07-25-2024 09:39-0500 Body height 152.4 cm Dony Mcdonald DPM Work Phone: [facility] 07-25-2024 09:39-0500 Body mass index (BMI) [Ratio] 25.97 kg/m2 Dony Mcdonald DPM Work Phone: [facility] 07-25-2024 09:39-0500 Body weight 60.33 kg Dony Mcdonald DPM Work Phone: [facility] 07-25-2024 09:39-0500 Diastolic blood pressure 54 mm[Hg] Dony Mcdonald DPM Work Phone: [facility] 07-25-2024 09:39-0500 Heart rate 63 /min Dony Mcdonald DPM Work Phone: [facility] 07-25-2024 09:39-0500 Systolic blood pressure 108 mm[Hg] Dony Mcdonald DPM Work Phone: [facility] 07-22-2024 14:31-0500 Body height 152.4 cm Anita Dudley MD Work Phone: [facility] 07-22-2024 14:31-0500 Body mass index (BMI) [Ratio] 25.97 kg/m2 Anita Dudley MD Work Phone: [facility] 07-22-2024 14:31-0500 Body weight 60.33 kg Anita Dudley MD Work Phone: [facility] 07-22-2024 14:31-0500 Diastolic blood pressure 58 mm[Hg] Anita Dudley MD Work Phone: [facility] 07-22-2024 14:31-0500 Heart rate 71 /min Anita Dudley MD Work Phone: [facility] 07-22-2024 14:31-0500 SaO2% (BldA) [Mass fraction] 98 % Anita Dudley MD Work Phone: [facility] 07-22-2024 14:31-0500 Systolic blood pressure 118 mm[Hg] Anita Dudley MD Work Phone: [facility] 05-09-2024 09:02-0400 Body height 152.4 cm Christopher Bohach DPM Work Phone: [facility] 05-09-2024 09:02-0400 Body mass index (BMI) [Ratio] 26.37 kg/m2 Christopher Bohach DPM Work Phone: [facility] 05-09-2024 09:02-0400 Body weight 61.24 kg Christopher Bohach DPM Work Phone: [facility] 05-09-2024 09:02-0400 Diastolic blood pressure 51 mm[Hg] Christopher Bohach DPM Work Phone: [facility] 05-09-2024 09:02-0400 Heart rate 65 /min Christopher Bohach DPM Work Phone: [facility] 05-09-2024 09:02-0400 Systolic blood pressure 112 mm[Hg] Christopher Bohach DPM Work Phone: [facility] 01-02-2024 09:39-0400 Body height 152.4 cm [facility] 01-02-2024 09:39-0400 Body mass index (BMI) [Ratio] 26.4 kg/m2 [facility] 01-02-2024 09:39-0400 Body temperature 97.7 [degF] [facility] 01-02-2024 09:39-0400 Body weight 61.4 kg [facility] 01-02-2024 09:39-0400 Diastolic blood pressure 73 mm[Hg] [facility] 01-02-2024 09:39-0400 Heart rate 74 /min [facility] 01-02-2024 09:39-0400 Respiratory rate 18 /min [facility] 01-02-2024 09:39-0400 SaO2% (BldA) [Mass fraction] 97 % [facility] 01-02-2024 09:39-0400 Systolic blood pressure 125 mm[Hg] [facility] Encounters Encounter Date Encounter Type Care Provider Facility Start: 09-02-2024 End: 09-02-2024 Bamboo flowsheet Kaley German [employer] Work Phone: [facility] Start: 09-02-2024 End: 09-02-2024 Bamboo flowsheet Kaley German [employer] Work Phone: [facility] Start: 08-26-2024 End: 08-26-2024 Bamboo flowsheet Freda Kelbley [employer] [facility] Start: 08-26-2024 End: 08-26-2024 Bamboo flowsheet Freda Kelbley [employer] [facility] Start: 08-26-2024 End: 08-26-2024 ambulatory FREDA KELBLEY [facility] Comment on above: Sacroiliitis (CMS/HC C) (Primary Dx) Start: 08-19-2024 End: 08-19-2024 Bamboo flowsheet Freda Kelbley [employer] [facility] Start: 08-19-2024 End: 08-19-2024 Bamboo flowsheet Freda Kelbley [employer] [facility] Start: 08-19-2024 End: 08-19-2024 ambulatory Freda Kelbley [employer] [facility] Comment on above: Sacroiliitis (CMS/HC C) (Primary Dx) Start: 08-12-2024 End: 08-12-2024 Bamboo flowsheet Freda Kelbley [employer] [facility] Start: 08-12-2024 End: 08-12-2024 Bamboo flowsheet Freda Kelbley [employer] [facility] Start: 08-12-2024 End: 08-12-2024 ambulatory Freda Kelbley [employer] [facility] Comment on above: Sacroiliitis (CMS/HC C) (Primary Dx) Start: 08-07-2024 End: 08-07-2024 Bamboo flowsheet Fredasudarshan Baezabley [employer] [facility] Start: 08-07-2024 End: 08-07-2024 Bamboo flowsheet Freda Aryanbley [employer] [facility] Start: 08-07-2024 End: 08-07-2024 ambulatory Freda Aryanbley [employer] [facility] Comment on above: Sacroiliitis (CMS/HC C) (Primary Dx) Start: 08-05-2024 End: 08-05-2024 Bamboo flowsheet Fredasudarshan Baezabley [employer] [facility] Start: 08-05-2024 End: 08-05-2024 Bamboo flowsheet Freda Aryanbley [employer] [facility] Start: 08-05-2024 End: 08-05-2024 ambulatory Freda Angellay [employer] [facility] Comment on above: Sacroiliitis (CMS/HC C) (Primary Dx) Start: 07-31-2024 End: 07-31-2024 Bamboo flowsheet Clari Hua PT Work Phone: [facility] Start: 07-31-2024 End: 07-31-2024 Bamboo flowsheet Clari Hua PT Work Phone: [facility] Start: 07-31-2024 End: 07-31-2024 ambulatory Clari Hua PT Work Phone: [facility] Comment on above: Sacroiliitis (CMS/HC C) (Primary Dx) Start: 07-29-2024 End: 07-29-2024 Telephone encounter Anita Dudley MD Work Phone: [facility] Comment on above: results/recommendati ons Start: 07-25-2024 End: 07-25-2024 Bamboo flowsheet Dony Mcdonald DPM Work Phone: [facility] Start: 07-25-2024 End: 07-25-2024 Bamboo flowskaitlin Mcdonald DPM Work Phone: [facility] Start: 07-25-2024 End: 07-25-2024 Patient encounter procedure Dony Mcdonald DPM Work Phone: [facility] Comment on above: 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); Onychomycosis Start: 07-25-2024 End: 07-25-2024 ambulatory DONY MCDONALD Not Available Start: 07-22-2024 End: 07-22-2024 Office outpatient visit 25 minutes Anita Dudley MD Work Phone: [facility] Comment on above: Sacroiliitis (CMS/HC C) (Primary Dx); Anxiety; Type 2 diabetes mellitus with diabetic chronic kidney disease, unspecified CKD stage, 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); Heart failure, unspecified (CMS/HCC); Leukocytosis, unspecified type; Stage 3a chronic kidney disease (CKD) (CMS/HCC); Vaginal itching Start: 07-22-2024 End: 07-22-2024 ambulatory ANITA DUDLEY Not Available Start: 07-22-2024 End: 07-22-2024 Bamboo flowsheet Anita Dudley MD Work Phone: [facility] Start: 07-22-2024 End: 07-22-2024 Bamboo flowsheet Anita Dudley MD Work Phone: [facility] Start: 06-23-2024 End: 06-23-2024 ambulatory [facility] Start: 05-09-2024 End: 05-09-2024 Bamboo flowsheet Dony Mcdonald DPM Work Phone: [facility] Start: 05-09-2024 End: 05-09-2024 Bamboo flowsheet Dony cMdonald DPM Work Phone: [facility] Start: 05-09-2024 End: 05-09-2024 ambulatory DONY MCDONALD Not Available Start: 05-09-2024 End: 05-09-2024 Patient encounter procedure Dony Mcdonald DPM Work Phone: [facility] Comment on above: 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); Onychomycosis Start: 02-15-2024 End: 02-15-2024 ambulatory NEETA NUNO Not Available Start: 02-07-2024 End: 02-07-2024 ambulatory DONY MCDONALD Not Available Start: 01-28-2024 End: 01-28-2024 ambulatory [facility] Start: 01-22-2024 End: 01-22-2024 ambulatory ANITA DUDLEY Not Available Start: 01-02-2024 End: 01-02-2024 ambulatory [facility] Work Phone: Start: 01-02-2024 End: 01-02-2024 Patient encounter procedure [facility] [place] Work Phone: Start: 11-15-2023 End: 11-15-2023 ambulatory DONY MCDONALD Not Available Start: 10-26-2023 End: 10-26-2023 ambulatory [facility] Start: 09-24-2023 End: 02-15-2024 Patient encounter procedure Dony Mcdonald DPM Work Phone: [facility] Start: 09-24-2023 End: 09-24-2023 ambulatory [facility] Start: 09-24-2023 End: 09-24-2023 ambulatory ANITA DUDLEY Not Available Start: 09-06-2023 End: 09-06-2023 ambulatory DONY MCDONALD Not Available Start: 07-26-2023 End: 07-26-2023 ambulatory [facility] Start: 10-31-2022 End: 11-01-[address] ANITA DUDLEY Facility: Start: 06-06-2022 End: 06-07-[address] ANITA DUDLEY Facility:[facility] Start: 04-21-2022 Encounter for preprocedural cardiovascular examination KARIME GEORGE [facility] Start: 04-20-2022 End: 04-21-2022 ambulatory KARIME BLACK Facility:[facility] Start: 04-20-2022 End: 04-21-2022 Encounter for preprocedural cardiovascular examination KARIME WAYNE Facility:[facility] Start: 04-20-2022 Encounter for other preprocedural examination DR WAYNE JENNINGS [facility] [place] Start: 04-18-2022 End: 04-19-[address] WAYNE JENNINGS Facility:[facility] Start: 04-18-2022 End: 04-19-2022 Encounter for other preprocedural examination DR WAYNE JENNINGS Facility:[facility] Procedures Date Procedure Procedure Detail Performing Clinician Start: 07-22-2024 Hemoglobin glycosylated a1c Anita Dudley MD Work Phone: Start: 11-30-2022 History [...] Office Visit [facility] [address] [facility] [address] [place] [id number] Anita Dudley MD [address] [facility] [address] [place] [address] [facility] Start: 10-20-2024 Hemoglobin A1c measurement Diabetes: Hemoglobin A1C [facility] Start: 10-07-2024 End: 10-07-2024 Patient encounter procedure 10/07/2024 9:15 AM EDT Procedure Visit [facility] [place] [address] Dony Mcdonald, DPM [address] [facility] [place] [address] [facility] Start: 10-06-2024 End: 10-06-2024 Patient encounter procedure 10/06/2024 9:15 AM EDT Procedure Visit [facility] [address] [place] [id number] Dony Mcdonald, DPM [address] [place] [address] [facility] Start: 09-23-2024 Medicare Annual Well ness (AWV) Medicare Annual Wellness (AWV) [facility] Start: 09-23-2024 Urine screening for protein Diabetes: Urine Protein Screening [facility] Start: 09-08-2024 End: 09-08-2024 Patient encounter procedure 09/08/2024 9:30 AM EST Office Visit [facility] [address] [facility] [address] [place] [address] Anita Dudley MD [address] [facility] [address] [place] [address] [facility] Start: 09-02-2024 End: 09-02-2024 ambulatory 09/02/2024 10:00 AM EST Treatment [facility] [address] [facility] [address] [place] [address] Clari Hua, PT [address] [facility] [address] [place] [address] [facility] Start: 09-02-2024 End: 09-02-2024 Patient encounter procedure 09/02/2024 9:00 AM EST Office Visit [facility] [address] [facility] [address] [place] [address] Kaley German, [employer] [address] [facility] [address] [place] [address] Arrived [facility] Comment on above: Arrived Start: 08-28-2024 End: 08-28-2024 ambulatory 08/28/2024 10:30 AM EST Treatment [facility] [address] [facility] [address] [place] [address] Oniel Freda, HOUSING [employer]OCATION [facility] Start: 08-26-2024 End: 08-26-2024 ambulatory [facility] Comment on above: Sacroiliitis (CMS/HC C) (Primary Dx) Start: 08-21-2024 End: 08-21-2024 ambulatory 08/21/2024 10:00 AM EST Treatment [facility] [address] [facility] [address] [place] [address] Javid Clari T, PT [address] [address] [place] [address] [facility] Start: 08-19-2024 End: 08-19-2024 ambulatory [facility] Comment on above: Sacroiliitis (CMS/HC C) (Primary Dx) Start: 08-14-2024 End: 08-14-2024 ambulatory [facility] Start: 08-12-2024 End: 08-12-2024 ambulatory [facility] Comment on above: Arrived Start: 08-07-2024 End: 08-07-2024 ambulatory [facility] Comment on above: Arrived Start: 08-05-2024 End: 08-05-2024 ambulatory [facility] Comment on above: Arrived Start: 07-25-2024 End: 07-25-2024 Patient encounter procedure [facility] Comment on above: Arrived Start: 07-22-2024 End: 07-22-2024 Patient encounter procedure 07/22/2024 2:30 PM EST Office Visit [facility] [address] [place] [address] Anita Dudley MD [address] [place] [address] Arrived [facility] Comment on above: [...] Routine Stage 3a chronic kidney disease (CKD) ([facility]/HCC) Expected: 07/22/2024 (Approximate), Expires: 07/22/2025 [facility] Comment on above: Expected: 07/22/2024 (Approximate), Expires: 07/22/2025 Start: 07-22-2024 Urine screening for protein Diabetes: Urine Protein Screening [facility] Comment on above: Postponed from 09/19 (Other Medical Reasons) Start: 07-22-2024 End: 07-22-2025 XR Lumbar spine 4 Views XR LUMBAR SPINE AP/LAT/OBLIQUES Imaging Routine Sacroiliitis ([facility]) Expected: 07/22/2024, Expires: 07/22/2025 [facility] Comment on above: Expected: 07/22/2024 , Expires: 07/22/2025 Start: 07-22-2024 End: 07-22-2024 Patient encounter procedure 07/22/2024 8:30 AM EST Office Visit [facility] [address] [facility] [address] [place] [id number] Anita Dudley MD [address] [facility] [address] [place] [address] [facility] Start: 05-31-2024 Pneumococcal Vaccine : 65+ Years (2 of 2 - PCV) Pneumococcal Vaccine: 65+ Years (2 of 2 - PCV) [facility] Comment on above: Postponed from 11/05 (Other Patient Reasons) Start: 04-23-2024 Hemoglobin A1c measurement Diabetes: Hemoglobin A1C [facility] Start: 03-09-2024 Influenza vaccination Influenza Vacc ine (#1) [facility] Start: 11-05-2012 Pneumococcal Vaccine : 65+ Years (2 of 2 - PCV) Pneumococcal Vaccine: 65+ Years (2 of 2 - PCV) [facility] Start: 1954 Urine screening for protein Diabetes: Urine Protein Screening [facility] Immunizations Immunization Date Immunization Notes Care Provider Emma arce 05-02-2023 Influenza, High-dose Seasonal, Quadrivalent, Preservative Free Christopher Bohach DPM Work Phone: [facility] 05-02-2023 influenza virus vacc ine, unspecified formulation Christopher Bohach DPM Work Phone: [facility] 04-05-2022 influenza, injectable,quadrivalent, preservative free, pediatric Christopher Bohach DPM Work Phone: [facility] 05-23-2021 influenza, high dose seasonal, preservative-free Christopher Bohach DPM Work Phone: [facility] 05-07-2020 Influenza, Seasonal, Quadrivalent, Adjuvanted Christopher Bohach DPM Work Phone: [facility] 07-16-2015 tetanus toxoid, redu jennifer diphtheria toxoid, and acellular pertussis vaccine, adsorbed Christopher Bohach DPM Work Phone: [facility] 07-09-2013 seasonal influenza, intradermal, preservative free Junioropher Bohach DPM Work Phone: [facility] 11-06-2011 pneumococcal polysaccharide vaccine, 23 valent Junioropher Bohach DPM Work Phone: [facility] 07-09-2008 tetanus toxoid, redu jennifer diphtheria toxoid, and acellular pertussis vaccine, adsorbed Christopher Bohach DPM Work Phone: [facility] 05-11-2008 zoster vaccine, live Skyler jose antonio Eliach DPM Work Phone: [facility] Payers Date Payer Category Payer Medicaid [employer] MEDICARE A DVANTAGE [id number] 1960 Medicare [id number] 1960 Medicare [id number] 1934 Unknown [id number] 1934 Unknown [id number] [id number]3 1934 Unknown [id number] [id number]3 1934 Unknown [id number] 2.16.840.1.529768.3.579.2.593 1934 Unknown [id number] 2.16.840.1.098874.3.579.2.125 1934 Unknown [id number] 2.16.840.1.549389.3.579.2.1259 1934 Unknown [id number] 2.16.840.1.310643.3.579.2.1259 1934 Unknown [id number] 2.16.840.1.390239.3.579.2.1259 1934 Unknown [id number] 2.16.840.1.245010.3.579.2.125 1934 Unknown [id number] 2.16.840.1.145823.3.579.2.1259 1934 Unknown [id number] 2.16.840.1.199228.3.579.2.125 1934 Unknown [id number] 2.16.840.1.779922.3.579.2.1259 1934 Unknown [id number] 2.16.840.1.529831.3.579.2.9 1934 Unknown [id number] 2.16.840.1.428010.3.579.2.1259 1934 Unknown [id number] 2.16.840.1.494445.3.579.2.9 1934 Unknown [id number] 2.16.840.1.524316.3.579.2.1258 1934 Unknown [id number] 2.16.840.1.840450.3.579.2.9 1934 Unknown [id number] 2.16.840.1.812057.3.579.2.1258 1934 Unknown [id number] 2.16.840.1.697664.3.579.2.1259 Medicare [id number] Self-pay Self Pay [id number] Unknown [id number] Conversion Insurance b [id number] Social History Date Type Detail Facility Start: 08-11-2013 End: 11-29-2022 Tobacco smoking status NHIS Never smoked tobacco (finding) [facility] Start: 1935 Sex Assigned At Female F [facility] Start: 11-29-2022 Tobacco use and exposure Smokeless tobacco non-user [facility] Start: 02-15-2024 End: 07-25-2024 Alcoholic beverage intake Lifetime non-drinker (finding) [facility] Start: 09-24-2023 End: 02-15-2024 History of Social function [facility] Start: 09-24-2023 End: 02-15-2024 Tobacco use panel [facility] Start: 11-29-2022 Alcohol Comment Hasn't drank a lcohol in the past 12 months [facility] Start: 1935 Sex assigned at Not on file N [facility] Medical Equipment Procedure Code Equipment Code Equipment Origin al Text Equipment Identifier Dates Blood Sugar Diagnostic (Onetouch Ultra Test) strip Start: 01-02-2024 1 Lancet Daily [id number] Start: 04-25-2024 TEST ONCE DAILY DIRECTED*E11.22* [id number] Start: 03-27-2024 Clinical Notes 02-16-2021 to 07-29-2024 Telephone Encounter - Katherine Cavanaugh LPN - 07/29/2024 10:11 AM ESTTelephone Encounter - Katherine Cavanaugh LPN - 07/29/2024 10:11 AM Montse Mcdonald DPM - 07/25/2024 9:45 AM EST Note Date & Type Note Facility 07-29-2024 Telephone encounter Note Pt called about recent xray and labs- aware of xray findings: she states she is taking new meds as directed along with otc tylenol and it has not helped she is wanting to know if there was something else to help with the back pain She states she has a lower back brace at home but it is to big and would like order for a new one sent to [facility] Let her know if there is anything different she needs to do as far as the lab results [facility] 07-29-2024 Miscellaneous Notes Pt called about recent xray and labs- aware of xray findings: she states she is taking new meds as directed along with otc tylenol and it has not helped she is wanting to know if there was something else to help with the back pain She states she has a lower back brace at home but it is to big and would like order for a new one sent to [facility] Let her know if there is anything different she needs to do as far as the lab results documented in this encounter [facility] 07-25-2024 History of Present illness Narrative Subjective [...] 09/29/2020 show 0-49% stenosis ICA Angina pectoris ([facility]) Ankle pain, left Breast cancer ([facility]) 2007 Carotid artery disease ([facility]) 2009 DDD (degenerative disc disease), lumbar 02/06/2021 MRI Multilevel moderate-marked central canal and foraminal narrowing secondary to DDD and facet arthropathy. 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 Severe Gallbladder disease 1997 Gout H/O heart artery stent 2007 hx of cardiac stents (7) H/O lumpectomy 1998 History of lumpectomy 1997 HTN (hypertension) (CMS/HCC) Hyperlipidemia (CMS/HCC) Malignant neoplasm of female breast (CMS/HCC) 08/11/2015 Melanoma (CMS/HCC) 2008 Osteopenia 03/26/2018 [facility] examination Wellness Screening Surgical Histories Past Surgical History: Procedure Laterality Date ANKLE SPLINT AIR CAST 2009 BREAST BIOPSY 1998 CARDIAC CATHETERIZATION CARPAL TUNNEL RELEASE 2000 CARPAL TUNNEL RELEASE Left 05/05/2022 CATARACT EXTRACTION 2005 CHOLECYSTECTOMY COLONOSCOPY CORONARY ANGIOPLASTY WITH STENT PLACEMENT 2006 CYSTOSCOPY 10/2014 EYE EXAM 2013 HERNIA REPAIR 1998 HIP ARTHROPLASTY 1996 HYSTERECTOMY 2010 OTHER SURGICAL HISTORY 07/19/2015 Right IF exc of mass SD BONE MARROW HARVEST TRANSPLANTATION ALLOGENEIC 03/2017 SD EXC TUMOR SOFT TISS BACK/FLANK SUBFASCIAL 5 CM/> Right 07/19/2015 SD MEDICATION MANAGEMENT 2009 vicodin TUBAL LIGATION Bilateral [...] 4mm. 2Long, Thick, Crumbly, Deformed, Discolored, Brittle, [id number]. 3Long, Thick. 4Long, Thick, Crumbly, Deformed, Discolored, Brittle, [id number]. 5Long, Thick, Crumbly, Deformed, Discolored, Brittle, [id number]. Nail Pathology: Right Foot: 1 (great toe)Long, Thick, Crumbly, Deformed, Discolored, Brittle, Dystrophic 4mm. 2Long, Thick, Crumbly, Deformed, Discolored, Brittle, [id number]. 3Normal, . 4Long, Thick, Crumbly, Deformed, Discolored, Brittle, [id number]. 5Long, Thick, Crumbly, Deformed, Discolored, Brittle, Dystrophic.3mm [...] nails were debrided documented in this encounter [facility] 07-22-2024 History of Present illness Narrative Associated [...] glucose trend. An DONNA inhibitor/angiotensin II receptor karlee is being taken. She does not see a dynamicist.Eye exam is current. Hypertension Pertinent negatives include [...] 09/29/2020 show 0-49% stenosis ICA Angina pectoris ([facility]) Ankle pain, left Breast cancer ([facility]) 2007 Carotid artery disease ([facility]) 2009 DDD (degenerative disc disease), lumbar 02/06/2021 MRI Multilevel moderate-marked central canal and foraminal narrowing secondary to DDD and facet arthropathy. 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 Severe Gallbladder disease 1998 Gout H/O heart artery stent 2007 hx of cardiac stents (7) H/O lumpectomy 1998 History of lumpectomy 1998 HTN (hypertension) ([facility]) Hyperlipidemia ([facility]) Malignant neoplasm of female breast ([facility]) 08/11/2015 Melanoma ([facility]) 2008 Osteopenia 03/26/2018 [facility] Wellness examination Wellness [...] HISTORY 07/19/2015 Right IF exc of mass SD BONE MARROW HARVEST TRANSPLANTATION ALLOGENEIC 03/2017 SD EXC TUMOR SOFT TISS BACK/FLANK SUBFASCIAL 5 CM/> Right 07/19/2015 SD MEDICATION MANAGEMENT 2009 vicodin TUBAL LIGATION Bilateral [...] Visit Stage 3a chronic kidney disease (CKD) ([facility]) Relevant Orders Comprehensive metabolic panel Type 2 diabetes mellitus with diabetic chronic kidney disease ([facility]) Relevant Orders POCT Glycated hemoglobin, total (Completed) Anxiety Relevant Medications ALPRAZolam (Xanax) 0.25 MG tablet Sacroiliitis (CMS/HCC) - Primary Will do an XR Relevant Medications baclofen (Lioresal) 5 MG tablet lidocaine (Lidoderm) 5 % patch Other Relevant Orders XR LUMBAR SPINE AP/LAT/OBLIQUES Leukocytosis Relevant Orders CBC Other Visit Diagnoses Heart failure, unspecified (CMS/HCC) No follow-ups on file. documented in this encounter [facility] 06-23-2024 Note IN Cardiology - [facility] Subjective Benigno Cho is [...] of left hip PVD (peripheral vascular disease) ([facility]) Abnormal CT of the abdomen Abnormality of rectum Acquired hallux valgus Acquired hammer toe of left foot Adjustment disorder with anxiety Allergic rhinitis Anxiety Arrest of bone development or growth 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 Carpal tunnel syndrome of left wrist Esophageal reflux Gouty arthritis Polyneuropathy due to type 2 diabetes mellitus ([facility]) Pain in limb Pain in joint involving ankle and foot Myopathy Myalgia Seasonal allergies Stage 3a chronic kidney disease ([facility]) Status post hysterectomy Type 2 diabetes mellitus with diabetic chronic kidney disease ([facility]) Uterovaginal prolapse Acute cystitis without hematuria Heart failure with reduced ejection fraction ([facility]) Medicare annual wellness visit, subsequent Other pruritus [...] CAD as follows: She had acute inferior TN in 2004 treated by PCI to the RCA. She then had additional stenting of the RCA in July 2005. Subsequently had Cath 2005 with additional PCI ALO to RCA and LAD. She also had a cath in 2009 at [facility] and underwent additional stenting. This was [...] No JVD. Cardiovascular (more content not included)... [facility] 05-09-2024 History of Present illness Narrative [...] 09/29/2020 show 0-49% stenosis ICA Angina pectoris ([facility]) Ankle pain, left Breast cancer ([facility]) 2007 Carotid artery disease ([facility]) 2009 DDD (degenerative disc disease), lumbar 02/06/2021 MRI Multilevel moderate-marked central canal and foraminal narrowing secondary to DDD and facet arthropathy. 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 Severe Gallbladder disease 1998 Gout H/O heart artery stent 2007 hx of cardiac stents (7) H/O lumpectomy 1998 History of lumpectomy 1998 HTN (hypertension) (CMS/HCC) Hyperlipidemia ([facility]) Malignant neoplasm of female breast ([facility]) 08/11/2015 Melanoma ([facility]) 2008 Osteopenia 03/26/2018 [facility] Well[facility] examination Wellness Screening Surgical Histories Past Surgical History: Procedure Laterality Date ANKLE SPLINT AIR CAST 2009 BREAST BIOPSY 1998 CARDIAC CATHETERIZATION CARPAL TUNNEL RELEASE 2000 CARPAL TUNNEL RELEASE Left 05/05/2022 CATARACT EXTRACTION 2006 CHOLECYSTECTOMY COLONOSCOPY CORONARY ANGIOPLASTY WITH STENT PLACEMENT 2006 CYSTOSCOPY 10/2014 EYE EXAM 2013 HERNIA REPAIR 1998 HIP ARTHROPLASTY 1996 HYSTERECTOMY 2011 OTHER SURGICAL HISTORY 07/19/2015 Right IF exc of mass SD BONE MARROW HARVEST TRANSPLANTATION ALLOGENEIC 03/2017 SD EXC TUMOR SOFT TISS BACK/FLANK SUBFASCIAL 5 CM/> Right 07/19/2015 SD MEDICATION MANAGEMENT 2009 vicodin TUBAL LIGATION Bilateral [...] 4mm. 2Long, Thick, Crumbly, Deformed, Discolored, Brittle, [id number]. 3Long, Thick. 4Long, Thick, Crumbly, Deformed, Discolored, Brittle, [id number]. 5Long, Thick, Crumbly, Deformed, Discolored, Brittle, [id number]. Nail Pathology: Right Foot: 1 (great toe)Long, Thick, Crumbly, Deformed, Discolored, Brittle, Dystrophic 4mm. 2Long, Thick, Crumbly, Deformed, Discolored, Brittle, [id number]. 3Normal, . 4Long, Thick, Crumbly, Deformed, Discolored, Brittle, [id number]. 5Long, Thick, Crumbly, Deformed, Discolored, Brittle, Dystrophic.3mm [...] nails were debrided documented in this encounter [facility] 01-28-2024 Note IN Cardiology - [facility] Subjective Benigno Cho is [...] arteriosclerosis Decreased estrogen level Diabetic renal disease ([facility]/HCC) Female stress incontinence Gout, unspecified H/O Malignant melanoma Hypertension due to endocrine disorder Hypertensive disorder Hypertriglyceridemia Lipoprotein deficiency disorder Malignant neoplasm of female breast ([facility]/HCC) Localized, primary osteoarthritis of hand Onychomycosis due to dermatophyte Osteoarthrosis Osteopenia of left hip PVD (peripheral vascular disease) ([facility]) Abnormal CT of the abdomen Abnormality of rectum Acquired hallux valgus Acquired hammer toe of left foot Adjustment disorder with anxiety Allergic rhinitis Anxiety Arrest of bone development or growth 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 Carpal tunnel syndrome of left wrist Esophageal reflux Gouty arthritis Polyneuropathy due to type 2 diabetes mellitus ([facility]/HCC) Pain in limb Pain in joint involving ankle and foot Myopathy Myalgia Seasonal allergies Stage 3a chronic kidney disease ([facility]) Status post hysterectomy Type 2 diabetes mellitus with diabetic chronic kidney disease ([facility]) Uterovaginal prolapse Acute cystitis without hematuria Heart failure with reduced ejection fraction ([facility]) Medicare annual wellness visit, subsequent Other pruritus [...] CAD as follows: She had acute inferior TN in 2004 treated by PCI to the RCA. She then had additional stenting of the RCA in July 2005. Subsequently had Cath 2005 with additional PCI ALO to RCA and LAD. She also had a cath in 2009 at [facility] and underwent additional stenting. This was [...] arm, Patient Posit (more content not included)... [facility] 10-26-2023 Note IN Cardiology - [facility] Subjective Benigno Cho is [...] CAD as follows: She had acute inferior TN in 2004 treated by PCI to the RCA. She then had additional stenting of the RCA in July 2005. Subsequently had Cath 2005 with additional PCI ALO to RCA and LAD. She also had a cath in 2009 at [facility] and underwent additional stenting. This was [...] no abdominal tenderness. (more content not included)... [facility] 09-24-2023 Note IN Cardiology - [facility] Subjective Benigno Cho is a 88 y.o. year old female patient being seen for follow up echo and to discuss possible heart cath per Dr. Zuniga. She had CBC, CMP, and lipid panel drawn this morning at [facility]. Patient still denies chest pain, SOB, [...] CAD as follows: She had acute inferior TN in 2004 treated by PCI to the RCA. She then had additional stenting of the RCA in July 2005. Subsequently had Cath 2005 with additional PCI ALO to RCA and LAD. She also had a cath in 2009 at [facility] and underwent additional stenting. This was [...] Rfl: calcium ci (more content not included)... [facility] 07-26-2023 Note IN Cardiology - [facility] Subjective Benigno Cho is [...] CAD as follows: She had acute inferior TN in 2004 treated by PCI to the RCA. She then had additional stenting of the RCA in July 2005. Subsequently had Cath 2005 with additional PCI ALO to RCA and LAD. She also had a cath in 2009 at [facility] and underwent additional stenting. This was [...] nitroglycerin (Nitrostat) 0.4 (more content not included)... [facility] 02-16-2021 Note HNO ID: [id number] Author: Alejo Mahajan MD Service: ? Author [...] Time Spent: 4 minutes Alejo Mahajan MD [facility] Evaluation note Diagnosis Onset Date Poison dylon dermatitis [facility] Work Phone: Evaluation note* Diagnosis Anxiety- Primary Anxiety state, unspecified Type 2 diabetes mellitus with chronic kidney disease, with long-term current use of insulin, unspecified CKD stage (CMS/HCC) Adjustment disorder with anxiety (CMS/HCC) Adjustment disorder with anxiety Coronary arteriosclerosis (CMS/HCC)- Primary Coronary atherosclerosis of unspecified type of vessel, [place] or graft Anxiety Anxiety state, unspecified Hypertension, unspecified type ([facility]/HCC) Type 2 diabetes mellitus with chronic kidney [...] gangrene, without long-term current use of insulin ([facility]) Anxiety Anxiety state, unspecified 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CMS/[facility]) Heart failure with reduced ejection fraction ([facility]) Other pruritus- Primary Hypertension, unspecified type (CMS/[facility]) Vaginal itching Pruritus of genital organs Type 2 diabetes mellitus with chronic kidney disease, with long-term current use of insulin, unspecified CKD stage (CMS/HCC) Acute cystitis without hematuria 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[facility]) Diabetic polyneuropathy associated with type 2 diabetes mellitus ([facility])- Primary Onychomycosis Dermatophytosis of nail documented in this encounter [facility] HealthcareEvaluation note* Diagnosis Anxiety- Primary Anxiety state, unspecified Type 2 diabetes mellitus with chronic kidney disease, with long-term current use of insulin, unspecified CKD stage (CMS/HCC) Adjustment disorder with anxiety ([facility]) Adjustment disorder with anxiety Coronary arteriosclerosis ([facility])- Primary Coronary atherosclerosis of unspecified type of vessel, [place] or graft Anxiety Anxiety state, unspecified Hypertension, unspecified type ([facility]/HCC) Type 2 diabetes mellitus with chronic kidney [...] of insulin, unspecified CKD stage (CMS/HCC) Hypertriglyceridemia (CMS/[facility]) Pure hyperglyceridemia Chronic kidney disease, stage 3a (N18.31) Type 2 diabetes mellitus with diabetic peripheral angiopathy without gangrene, without long-term current use of insulin ([facility]) Anxiety Anxiety state, unspecified 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[facility]) Heart failure with reduced ejection fraction ([facility]) Other pruritus- Primary Hypertension, unspecified type ([facility]) Vaginal itching Pruritus of genital organs Type 2 diabetes mellitus with chronic kidney disease, with long-term current use of insulin, unspecified CKD stage ([facility]) Acute cystitis without hematuria 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[facility]) Sacroiliitis ([facility])- Primary Sacroiliitis, not elsewhere classified Anxiety Anxiety state, unspecified Type 2 diabetes mellitus with diabetic chronic kidney disease, unspecified CKD stage, unspecified whether prison insulin use ([facility]) Heart failure, unspecified ([facility]) Heart failure, unspecified Leukocytosis, unspecified type Stage 3a chronic kidney disease (CKD) ([facility]) Vaginal itching Pruritus of genital organs documented in this encounter [facility] HealthcareEvaluation note* Diagnosis Anxiety- Primary Anxiety state, unspecified Type 2 diabetes mellitus with chronic kidney disease, with long-term current use of insulin, unspecified CKD stage ([facility]) Adjustment disorder with anxiety ([facility]) Adjustment disorder with anxiety Coronary arteriosclerosis ([facility])- Primary Coronary atherosclerosis of unspecified type of vessel, [place] or graft Anxiety Anxiety state, unspecified Hypertension, unspecified type ([facility]) Type 2 diabetes mellitus with chronic kidney disease, with long-term current use of insulin, unspecified CKD stage ([facility]) Routine general medical examination at health care facility- Primary Routine general medical examination at a health care facility Abnormal glucose tolerance test Impaired glucose tolerance test Benign essential hypertension ([facility]) Essential hypertension, benign Medicare annual wellness visit, subsequent Type 2 diabetes mellitus with chronic kidney disease, with long-term current use of insulin, unspecified CKD stage ([facility]) Hypertriglyceridemia ([facility]) Pure hyperglyceridemia Chronic kidney disease, stage 3a (N18.31) Type 2 diabetes mellitus with diabetic peripheral angiopathy without gangrene, without long-term current use of insulin ([facility]) Anxiety Anxiety state, unspecified 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[facility]) Heart failure with reduced ejection fraction ([facility]) Other pruritus- Primary Hypertension, unspecified type ([facility]) Vaginal itching Pruritus of genital organs Type 2 diabetes mellitus with chronic kidney disease, with long-term current use of insulin, unspecified CKD stage ([facility]) Acute cystitis without hematuria 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[facility]) Sacroiliitis ([facility])- Primary Sacroiliitis, not elsewhere classified Anxiety Anxiety state, unspecified Type 2 diabetes mellitus with diabetic chronic kidney disease, unspecified CKD stage, 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 use ([facility]) Heart failure, unspecified ([facility]) Heart failure, unspecified Leukocytosis, unspecified type Stage 3a chronic kidney disease (CKD) ([facility]) Vaginal itching Pruritus of genital organs Diabetic polyneuropathy associated with type 2 diabetes mellitus ([facility])- Primary Onychomycosis Dermatophytosis of nail documented in this encounter [facility]Evaluation note* Diagnosis Anxiety- Primary Anxiety state, unspecified Type 2 diabetes mellitus with chronic kidney disease, with long-term current use of insulin, unspecified CKD stage ([facility]) Adjustment disorder with anxiety ([facility]) Adjustment disorder with anxiety Coronary arteriosclerosis ([facility])- Primary Coronary atherosclerosis of unspecified type of vessel, [place] or graft Anxiety Anxiety state, unspecified Hypertension, unspecified type ([facility]) Type 2 diabetes mellitus with chronic kidney disease, with long-term current use of insulin, unspecified CKD stage ([facility]) Routine general medical examination at health care facility- Primary Routine general medical examination at a health care facility Abnormal glucose tolerance test Impaired glucose tolerance test Benign essential hypertension ([facility]) Essential hypertension, benign Medicare annual wellness visit, subsequent Type 2 diabetes mellitus with chronic kidney disease, with long-term current use of insulin, unspecified CKD stage ([facility]) Hypertriglyceridemia ([facility]) Pure hyperglyceridemia Chronic kidney disease, stage 3a (N18.31) Type 2 diabetes mellitus with diabetic peripheral angiopathy without gangrene, without long-term current use of insulin ([facility]) Anxiety Anxiety state, unspecified 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[facility]) Heart failure with reduced ejection fraction ([facility]) Other pruritus- Primary Hypertension, unspecified type ([facility]) Vaginal itching Pruritus of genital organs Type 2 diabetes mellitus with chronic kidney disease, with long-term current use of insulin, unspecified CKD stage ([facility]) Acute cystitis without hematuria 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[facility]) Sacroiliitis ([facility])- Primary Sacroiliitis, not elsewhere classified Anxiety Anxiety state, unspecified Type 2 diabetes mellitus with diabetic chronic kidney disease, unspecified CKD stage, unspecified whether prison insulin use ([facility]) Heart failure, unspecified ([facility]) Heart failure, unspecified Leukocytosis, unspecified type Stage 3a chronic kidney disease (CKD) ([facility]) Vaginal itching Pruritus of genital organs Sacroiliitis ([facility])- Primary Sacroiliitis, not elsewhere classified documented in this encounter [facility]* Diagnosis Anxiety- Primary Anxiety state, unspecified Type 2 diabetes mellitus with chronic kidney disease, with long-term current use of insulin, unspecified CKD stage ([facility]) Adjustment disorder with anxiety ([facility]) Adjustment disorder with anxiety Coronary arteriosclerosis ([facility])- Primary Coronary atherosclerosis of unspecified type of vessel, [place] or graft Anxiety Anxiety state, unspecified Hypertension, unspecified type ([facility]) Type 2 diabetes mellitus with chronic kidney disease, with long-term current use of insulin, unspecified CKD stage ([facility]) Routine general medical examination at health care facility- Primary Routine general medical examination at a health care facility Abnormal glucose tolerance test Impaired glucose tolerance test Benign essential hypertension ([facility]) Essential hypertension, benign Medicare annual wellness visit, subsequent Type 2 diabetes mellitus with chronic kidney disease, with long-term current use of insulin, unspecified CKD stage ([facility]) Hypertriglyceridemia ([facility]) Pure hyperglyceridemia Chronic kidney disease, stage 3a (N18.31) Type 2 diabetes mellitus with diabetic peripheral angiopathy without gangrene, without long-term current use of insulin ([facility]) Anxiety Anxiety state, unspecified 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[facility]) Heart failure with reduced ejection fraction ([facility]) Other pruritus- Primary Hypertension, unspecified type ([facility]) Vaginal itching Pruritus of genital organs Type 2 diabetes mellitus with chronic kidney disease, with long-term current use of insulin, unspecified CKD stage ([facility]) Acute cystitis without hematuria 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[facility]) Sacroiliitis ([facility])- Primary Sacroiliitis, not elsewhere classified Anxiety Anxiety state, unspecified Type 2 diabetes mellitus with diabetic chronic kidney disease, unspecified CKD stage, unspecified whether prison insulin use ([facility]) Heart failure, unspecified ([facility]) Heart failure, unspecified Leukocytosis, unspecified type Stage 3a chronic kidney disease (CKD) ([facility]) Vaginal itching Pruritus of genital organs Sacroiliitis ([facility])- Primary Sacroiliitis, not elsewhere classified documented in this encounter [facility]* Diagnosis Anxiety- Primary Anxiety state, unspecified Type 2 diabetes mellitus with chronic kidney disease, with long-term current use of insulin, unspecified CKD stage ([facility]) Adjustment disorder with anxiety ([facility]) Adjustment disorder with anxiety Coronary arteriosclerosis ([facility])- Primary Coronary atherosclerosis of unspecified type of vessel, [place] or graft Anxiety Anxiety state, unspecified Hypertension, unspecified type ([facility]) Type 2 diabetes mellitus with chronic kidney disease, with long-term current use of insulin, unspecified CKD stage ([facility]) Routine general medical examination at health care facility- Primary Routine general medical examination at a health care facility Abnormal glucose tolerance test Impaired glucose tolerance test Benign essential hypertension ([facility]) Essential hypertension, benign Medicare annual wellness visit, subsequent Type 2 diabetes mellitus with chronic kidney disease, with long-term current use of insulin, unspecified CKD stage ([facility]) Hypertriglyceridemia ([facility]) Pure hyperglyceridemia Chronic kidney disease, stage 3a (N18.31) Type 2 diabetes mellitus with diabetic peripheral angiopathy without gangrene, without long-term current use of insulin ([facility]) Anxiety Anxiety state, unspecified 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[facility]) Heart failure with reduced ejection fraction ([facility]) Other pruritus- Primary Hypertension, unspecified type ([facility]) Vaginal itching Pruritus of genital organs Type 2 diabetes mellitus with chronic kidney disease, with long-term current use of insulin, unspecified CKD stage ([facility]) Acute cystitis without hematuria 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[facility]) Sacroiliitis ([facility])- Primary Sacroiliitis, not elsewhere classified Anxiety Anxiety state, unspecified Type 2 diabetes mellitus with diabetic chronic kidney disease, unspecified CKD stage, unspecified whether prison insulin use ([facility]) Heart failure, unspecified ([facility]) Heart failure, unspecified Leukocytosis, unspecified type Stage 3a chronic kidney disease (CKD) ([facility]) Vaginal itching Pruritus of genital organs Sacroiliitis ([facility])- Primary Sacroiliitis, not elsewhere classified documented in this encounter [facility] HealthcareEvaluation note* Diagnosis Anxiety- Primary Anxiety state, unspecified Type 2 diabetes mellitus with chronic kidney disease, with long-term current use of insulin, unspecified CKD stage ([facility]) Adjustment disorder with anxiety ([facility]) Adjustment disorder with anxiety Coronary arteriosclerosis ([facility])- Primary Coronary atherosclerosis of unspecified type of vessel, [place] or graft Anxiety Anxiety state, unspecified Hypertension, unspecified type ([facility]) Type 2 diabetes mellitus with chronic kidney disease, with long-term current use of insulin, unspecified CKD stage ([facility]) Routine general medical examination at health care facility- Primary Routine general medical examination at a health care facility Abnormal glucose tolerance test Impaired glucose tolerance test Benign essential hypertension ([facility]) Essential hypertension, benign Medicare annual wellness visit, subsequent Type 2 diabetes mellitus with chronic kidney disease, with long-term current use of insulin, unspecified CKD stage ([facility]) Hypertriglyceridemia ([facility]) Pure hyperglyceridemia Chronic kidney disease, stage 3a (N18.31) Type 2 diabetes mellitus with diabetic peripheral angiopathy without gangrene, without long-term current use of insulin ([facility]) Anxiety Anxiety state, unspecified 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[facility]) Heart failure with reduced ejection fraction ([facility]) Other pruritus- Primary Hypertension, unspecified type ([facility]) Vaginal itching Pruritus of genital organs Type 2 diabetes mellitus with chronic kidney disease, with long-term current use of insulin, unspecified CKD stage ([facility]) Acute cystitis without hematuria 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[facility]) Sacroiliitis ([facility])- Primary Sacroiliitis, not elsewhere classified Anxiety Anxiety state, unspecified Type 2 diabetes mellitus with diabetic chronic kidney disease, unspecified CKD stage, unspecified whether prison insulin use ([facility]) Heart failure, unspecified ([facility]) Heart failure, unspecified Leukocytosis, unspecified type Stage 3a chronic kidney disease (CKD) ([facility]) Vaginal itching Pruritus of genital organs Sacroiliitis ([facility])- Primary Sacroiliitis, not elsewhere classified documented in this encounter [facility] HealthcareEvaluation note* Diagnosis Anxiety- Primary Anxiety state, unspecified Type 2 diabetes mellitus with chronic kidney disease, with long-term current use of insulin, unspecified CKD stage ([facility]) Adjustment disorder with anxiety ([facility]) Adjustment disorder with anxiety Coronary arteriosclerosis ([facility])- Primary Coronary atherosclerosis of unspecified type of vessel, [place] or graft Anxiety Anxiety state, unspecified Hypertension, unspecified type ([facility]) Type 2 diabetes mellitus with chronic kidney disease, with long-term current use of insulin, unspecified CKD stage ([facility]) Routine general medical examination at health care facility- Primary Routine general medical examination at a health care facility Abnormal glucose tolerance test Impaired glucose tolerance test Benign essential hypertension ([facility]) Essential hypertension, benign Medicare annual wellness visit, subsequent Type 2 diabetes mellitus with chronic kidney disease, with long-term current use of insulin, unspecified CKD stage ([facility]) Hypertriglyceridemia ([facility]) Pure hyperglyceridemia Chronic kidney disease, stage 3a (N18.31) Type 2 diabetes mellitus with diabetic peripheral angiopathy without gangrene, without long-term current use of insulin ([facility]) Anxiety Anxiety state, unspecified 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[facility]) Heart failure with reduced ejection fraction ([facility]) Other pruritus- Primary Hypertension, unspecified type ([facility]) Vaginal itching Pruritus of genital organs Type 2 diabetes mellitus with chronic kidney disease, with long-term current use of insulin, unspecified CKD stage ([facility]) Acute cystitis without hematuria 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[facility]) Sacroiliitis ([facility])- Primary Sacroiliitis, not elsewhere classified Anxiety Anxiety state, unspecified Type 2 diabetes mellitus with diabetic chronic kidney disease, unspecified CKD stage, unspecified whether prison insulin use ([facility]) Heart failure, unspecified ([facility]) Heart failure, unspecified Leukocytosis, unspecified type Stage 3a chronic kidney disease (CKD) ([facility]) Vaginal itching Pruritus of genital organs Sacroiliitis ([facility])- Primary Sacroiliitis, not elsewhere classified documented in this encounter [facility] HealthcareEvaluation note* Diagnosis Anxiety- Primary Anxiety state, unspecified Type 2 diabetes mellitus with chronic kidney disease, with long-term current use of insulin, unspecified CKD stage ([facility]) Adjustment disorder with anxiety ([facility]) Adjustment disorder with anxiety Coronary arteriosclerosis ([facility])- Primary Coronary atherosclerosis of unspecified type of vessel, [place] or graft Anxiety Anxiety state, unspecified Hypertension, unspecified type ([facility]) Type 2 diabetes mellitus with chronic kidney disease, with long-term current use of insulin, unspecified CKD stage ([facility]) Routine general medical examination at health care facility- Primary Routine general medical examination at a health care facility Abnormal glucose tolerance test Impaired glucose tolerance test Benign essential hypertension ([facility]) Essential hypertension, benign Medicare annual wellness visit, subsequent Type 2 diabetes mellitus with chronic kidney disease, with long-term current use of insulin, unspecified CKD stage ([facility]) Hypertriglyceridemia ([facility]) Pure hyperglyceridemia Chronic kidney disease, stage 3a (N18.31) Type 2 diabetes mellitus with diabetic peripheral angiopathy without gangrene, without long-term current use of insulin ([facility]) Anxiety Anxiety state, unspecified 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[facility]) Heart failure with reduced ejection fraction ([facility]) Other pruritus- Primary Hypertension, unspecified type ([facility]) Vaginal itching Pruritus of genital organs Type 2 diabetes mellitus with chronic kidney disease, with long-term current use of insulin, unspecified CKD stage ([facility]) Acute cystitis without hematuria 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[facility]) Sacroiliitis ([facility])- Primary Sacroiliitis, not elsewhere classified Anxiety Anxiety state, unspecified Type 2 diabetes mellitus with diabetic chronic kidney disease, unspecified CKD stage, unspecified whether prison insulin use ([facility]) Heart failure, unspecified ([facility]) Heart failure, unspecified Leukocytosis, unspecified type Stage 3a chronic kidney disease (CKD) ([facility]) Vaginal itching Pruritus of genital organs Sacroiliitis ([facility])- Primary Sacroiliitis, not elsewhere classified documented in this encounter [facility]* Diagnosis Anxiety- Primary Anxiety state, unspecified Type 2 diabetes mellitus with chronic kidney disease, with long-term current use of insulin, unspecified CKD stage ([facility]) Adjustment disorder with anxiety ([facility]) Adjustment disorder with anxiety Coronary arteriosclerosis ([facility])- Primary Coronary atherosclerosis of unspecified type of vessel, [place] or graft Anxiety Anxiety state, unspecified Hypertension, unspecified type ([facility]) Type 2 diabetes mellitus with chronic kidney disease, with long-term current use of insulin, unspecified CKD stage ([facility]) Routine general medical examination at health care facility- Primary Routine general medical examination at a health care facility Abnormal glucose tolerance test Impaired glucose tolerance test Benign essential hypertension ([facility]) Essential hypertension, benign Medicare annual wellness visit, subsequent Type 2 diabetes mellitus with chronic kidney disease, with long-term current use of insulin, unspecified CKD stage ([facility]) Hypertriglyceridemia ([facility]) Pure hyperglyceridemia Chronic kidney disease, stage 3a (N18.31) Type 2 diabetes mellitus with diabetic peripheral angiopathy without gangrene, without long-term current use of insulin ([facility]) Anxiety Anxiety state, unspecified 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[facility]) Heart failure with reduced ejection fraction ([facility]) Other pruritus- Primary Hypertension, unspecified type ([facility]) Vaginal itching Pruritus of genital organs Type 2 diabetes mellitus with chronic kidney disease, with long-term current use of insulin, unspecified CKD stage ([facility]) Acute cystitis without hematuria 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[facility]) Sacroiliitis ([facility])- Primary Sacroiliitis, not elsewhere classified Anxiety Anxiety state, unspecified Type 2 diabetes mellitus with diabetic chronic kidney disease, unspecified CKD stage, unspecified whether prison insulin use ([facility]) Heart failure, unspecified ([facility]) Heart failure, unspecified Leukocytosis, unspecified type Stage 3a chronic kidney disease (CKD) ([facility]) Vaginal itching Pruritus of genital organs Sacroiliitis ([facility])- Primary Sacroiliitis, not elsewhere classified documented in this encounter [facility] for visit Narrative* Rehabilitation - Outpatient (Routine) - Authorized Specialty Diagnoses / Procedures Referred By Ellie olivas Referred To Contact Physical Therapy Diagnoses Sacroiliitis ([facility]) Procedures SD OFFICE/OUTPATIENT NEW HIGH MDM 60 MINUTES Neeta Nuno PA [address] [facility] [address] [place] [address] Phone: tel: fax: Clari Hua, PT [address] [facility] [address] [place] [address] Phone: tel: fax: Referral ID Status Reason Start Date Expiration Date Visits Requested Visits Authorized [id number] Authorized Specialty Services Required 07/30/2024 01/26/2025 99 99 [facility] N[facility]* Rehabilitation - Outpatient (Routine) - Authorized Specialty Diagnoses / Procedures Referred By Ellie olivas Referred To Contact Physical Therapy Diagnoses Sacroiliitis (CMS/HCC) Procedures SD OFFICE/OUTPATIENT NEW HIGH MDM 60 MINUTES Neeta Nuno, PA [address] [facility] [address] [place] [address] Phone: tel: fax: Clari Hua, PT [address] [facility] [address] [place] [address] Phone: tel: fax: Referral ID Status Reason Start Date Expiration Date Visits Requested Visits Authorized [id number] Authorized Specialty Services Required 07/30/2024 07/08/2025 99 99 [facility] Summary Purpose Family History Relationship Condition Age at Onset Recorded Date/T zaid brother Unknown father Unknown mother Unknown sister Unknown Advance Directives Advance Directive Response Recorded Date/ Time Advance Directives No December 18 1:35pm Chief Complaint and Reason for Visit Chief Complaint rash on leg/arm Reason for Visit Poison dylon dermatiti s Additional Source Comments INFORMATION SOURCE (unrecogn ized section and content) DATE CREATED AUTHOR 08/10/2021 [facility] DATE CREATED AUTHOR AUTHOR'S ORGANIZ ATION 09/24/2021 [facility] DATE CREATED AUTHOR AUTHOR'S ORGANIZ ATION 11/04/2022 [facility] DATE CREATED AUTHOR AUTHOR'S ORGANIZ ATION 06/25/2024 [facility] DATE CREATED AUTHOR AUTHOR'S ORGANIZ ATION 07/30/2024 [facility] DATE CREATED AUTHOR AUTHOR'S ORGANIZ ATION 08/27/2024 [facility] dical Specialists EPIC Care Teams (unrecognized sec tion and content) Team Status: Active Member Role Status Dates PHYSICIAN NO FAMILY Primary Care Provider Active Team Status: Inactive Member Role Status Dates PHYSICIAN NO FAMILY Primary Care Provider Active Start: January 02, 2024 End: January 02, 2024 Brook Malone APRN Attending Provider Active S tart: January 02, 2024 End: January 02, 2024 Counter Helper Relationship Specialty Start Date End Date Anita Dudley MD [address] [place] [address] PCP - [employer] 07/09/20 Anita Dudley MD [address] [place] [address] PCP - General Family Medicine 09/06/23 Counter Helper Relationship Specialty Start Date End Date Anita Dudley MD [address] [place] [address] PCP - [employer] 07/09/20 Anita Dudley MD [address] [place] [address] PCP - General Family Medicine 09/06/23 Counter Helper Relationship Specialty Start Date End Date Anita Dudley MD [address] [place] [address] PCP - [employer] 07/09/20 Anita Dudley MD [address] [place] [address] PCP - General Family Medicine 09/06/23 Counter Helper Relationship Specialty Start Date End Date Anita Dudley MD [address] [place] [address] PCP - [employer] 07/09/20 Anita Dudley MD [address] [place] [address] PCP - General Family Medicine 09/06/23 Counter Helper Relationship Specialty Start Date End Date Anita Dudley MD [address] [place] [address] PCP - [employer] 07/09/20 Anita Dudley MD [address] [place] [address] PCP - General Family Medicine 09/06/23 Counter Helper Relationship Specialty Start Date End Date Anita Dudley MD [address] [place] [address] PCP - [employer] 07/09/20 Ainta Dudley MD [address] [place] [address] PCP - General Family Medicine 09/06/23 Counter Helper Relationship Specialty Start Date End Date Anita Dudley MD [address] [place] [address] PCP - [employer] 07/09/20 Anita Dudley MD [address] [place] [address] PCP - General Family Medicine 09/06/23 Counter Helper Relationship Specialty Start Date End Date Anita Dudley MD [address] [place] [address] PCP - [employer] 07/09/20 Anita Dudley MD [address] [place] [address] PCP - General Family Medicine 09/06/23 Counter Helper Relationship Specialty Start Date End Date Anita Dudley MD [address] [place] [address] PCP - [employer] 07/09/20 Anita Dudley MD [address] [place] [address] PCP - General Family Medicine 09/06/23 Counter Helper Relationship Specialty Start Date End Date Anita Dudley MD [address] [place] [address] PCP - [employer] 07/09/20 Anita Dudley MD [address] [facility] [address] [place] [address] PCP - General Family Medicine 09/06/23 Counter Helper Relationship Specialty Start Date End Date Anita Dudley MD [address] [facility] [address] [place] [address] PCP - [employer] 07/09/20 Anita Dudley MD [address] [facility] [address] [place] [address] PCP - General Family Medicine 09/06/23 Counter Helper Relationship Specialty Start Date End Date Anita Dudley MD [address] [place] [address] PCP - [employer] 07/09/20 Anita Dudley MD [address] [place] [address] PCP - General Family Medicine 09/06/23 Counter Helper Relationship Specialty Start Date End Date Anita Dudley MD [address] [facility] [address] [place] [address] PCP - [employer] 07/09/20 Anita Dudley MD [address] [facility] [address] [place] [address] PCP - General Family Medicine 09/06/23 Counter Helper Relationship Specialty Start Date End Date Anita Dudley MD [address] [facility] [address] [place] [address] PCP - [employer] 07/09/20 Anita Dudley MD [address] [facility] [address] [place] [address] PCP - General Family Medicine 09/06/23 Counter Helper Relationship Specialty Start Date End Date Anita Dudley MD [address] [facility] [address] [place] [address] PCP - [employer] 07/09/20 Anita Dudley MD [address] [facility] [address] [place] [address] PCP - General Family Medicine 09/06/23 Counter Helper Relationship Specialty Start Date End Date Anita Dudley MD [address] [facility] [address] [place] [address] PCP - [employer] 07/09/20 Anita Dudley MD [address] [facility] [address] [place] [address] PCP - General Family Medicine 09/06/23 Goals (unrecognized section and content) Goals may be documented in a n alternate section Reason for Visit (unrecogniz ed section and content) Reason Comments Follow-up N[employer] Reason Comments Diabetes Last A1c was 6/7 Hypertension Reason Onset Date Comments results/recommendations 07/29/2024 FOR RECORDS PERTAINING TO PATIENTS WHO ARE [...] BE BASED ON THE PRIMARY CLINICAL RECORDS. [facility]. provides no warranty or guarantee of the accuracy or completeness of information in this document.
== END 2024-09-02 11:05 | disposition home or self-care (01) ==
LOC: RAD 11:06
PROVIDERS: PCP Family Medicine; Visit Provider Nurse Practitioner Family
DX: M25.551 Pain in right hip (principal); Z96.641 Presence of right artificial hip joint
CPT/HCPCS: 73502